=== PATIENT | female | born 1935 | race Caucasian/White ===

== ENCOUNTER 2016-09-03 19:03 | Inpatient (IN) | payer MEDICARE ==
[2016-09-03] MEDS ORDERED: DILTIAZEM HCL INJ 25 MG/5 ML VIAL IV ONE (19:53)
[2016-09-03] MEDS ORDERED: DILTIAZEM HCL/D5W 125 ML IV PRN (19:53)
--- NOTE | 2016-09-03 20:11 | ER Document Report ---
ED General - General Stated Complaint: TROUBLE BREATHING Time Seen by Provider: 09/03/16 19:41 Notes: Patient is a 80-year-old female with a past medical history of morbid obesity, COPD, sleep apnea, and atrial fibrillation who presents with several hours of shortness of breath, palpitations and diaphoresis. States that her symptoms started gradually and have gotten progressively worse since onset. Nothing improves or worsens her symptoms. She states she feels similar to when she first developed A. fib approximately 1 year ago. She has not seen her primary care doctor regarding today's concerns. States she has been taking all medications as directed. He denies any chest pain, vomiting or syncope. TRAVEL OUTSIDE OF THE [place] IN LAST 30 DAYS: No - Related Data Allergies/Adverse Reactions: ivp dye Allergy (Severe, Uncoded 08/21/15 13:28) difficulty breathing, throat swelling,hives Past Medical History - General Information source: Patient - Social History Smoking Status: Never Smoker Frequency of alcohol use: None Drug Abuse: None Lives with: Family Family History: DM - Past Medical History Cardiac Medical History: Reports: Hx Hypertension - medicated Denies: Hx Heart Attack Pulmonary Medical History: Reports: Hx Asthma - medicated PRN/ NO MEDS APPROX 1YR Neurological Medical History: Denies: Hx Cerebrovascular Accident, Hx Seizures Endocrine Medical History: Reports: Hx Diabetes Mellitus Type 2 GI Medical History: Denies: Hx Hepatitis, Hx Hiatal Hernia, Hx Ulcer Musculoskeltal Medical History: Reports Hx Arthritis Infectious Medical History: Denies: Hx Hepatitis Past Surgical History: Reports: Hx Cholecystectomy, Hx Hysterectomy. Denies: Hx Mastectomy, Hx Open Heart Surgery, Hx Pacemaker - Immunizations Hx Diphtheria, Pertussis, Tetanus Vaccination: No Review of Systems - Review of Systems Notes: Constitutional: Negative for fever. HENT: Negative for sore throat. Eyes: Negative for visual changes. Cardiovascular: Negative for chest pain. Respiratory: Positive for shortness of breath. Gastrointestinal: Negative for abdominal pain, vomiting or diarrhea. Genitourinary: Negative for dysuria. Musculoskeletal: Negative for back pain. Skin: Negative for rash. Neurological: Negative for headaches, weakness or numbness. 10 point ROS negative except as marked above and in HPI. Physical Exam - Vital signs Vitals: Resp Pulse Ox 22 H 95 09/03/16 19:36 09/03/16 19:36 Interpretation: Tachycardic, Tachypneic Notes: PHYSICAL EXAMINATION: GENERAL: Appears uncomfortable, diaphoretic. HEAD: Atraumatic, normocephalic. EYES: Pupils equal round and reactive to light, extraocular movements intact, sclera anicteric, conjunctiva are normal. ENT: nares patent, oropharynx clear without exudates. Moderately dry mucous membranes. NECK: Normal range of motion, supple without lymphadenopathy LUNGS: Breath sounds clear to auscultation bilaterally and equal. No wheezes rales or rhonchi. HEART: Irregularly irregular tachycardia without murmurs ABDOMEN: Soft, nontender, normoactive bowel sounds. No guarding, no rebound. No masses appreciated. EXTREMITIES: Normal range of motion, no pitting or edema. No cyanosis. NEUROLOGICAL: No focal neurological deficits. Moves all extremities spontaneously and on command. PSYCH: Normal mood, normal affect. SKIN: Warm, Dry, normal turgor, no rashes or lesions noted. Course - Re-evaluation Re-evalutation: 09/03/16 20:08 Patient presents ill in appearance, tachycardic rate in the 160s with associated tachypnea and shortness of breath. Has a history of A. fib and states she has been compliant with her metoprolol however did miss one dose today. Patient is quite symptomatic from her A. fib with rapid ventricular response. She will be started on a diltiazem infusion after an initial bolus. She is critically ill at this time and require frequent reassessments. 09/03/16 21:02 Patient symptomatically feels much improved, diltiazem drip currently at 10 mg/ h. She remains mildly tachycardic although rate is overall much improved averaging between 106 and 110 at this time down to 160s initially. Will continue to reassess. Chest x-ray shows bibasilar opacities although her clinical history is not consistent with an acute infection, be atelectasis versus possible small amount of dependent pulmonary edema. Will continue to reassess frequently. 09/03/16 22:04 Patient continues to feel symptomatically much improved, heart rate currently ranging between 107 and 120 on 15 mg/h of diltiazem. Blood pressures remain within normal limits and her tachypnea has resolved. She is in much more stable condition at this time and will plan for admission to the hospitalist. 09/04/16 00:25 I have discussed with Dr. Walton who is agreed to admit the patient. Her heart rate remains at this time between 93 and 100 and she remains symptomatically much improved. - Vital Signs Vital signs: Temp Pulse Resp BP Pulse Ox 20 119/62 93 09/04/16 01:01 09/04/16 01:01 09/04/16 01:01 - Laboratory Result Diagrams: 09/03/16 20:30 09/03/16 20:30 Laboratory results interpreted by me: 09/03/16 09/03/16 09/03/16 20:30 20:30 23:45 RDW 14.2 H Lymphocytes % 12.3 L BUN 30 H Creatinine 1.34 H Est GFR ( Amer) 46 L Est GFR (Non-Af Amer) 38 L Glucose 204 H Ur Leukocyte Esterase LARGE H - Diagnostic Test Radiology reviewed: Image reviewed, Reports reviewed Radiology results interpreted by me: 09/04/16 00:25 Chest x-ray: Bibasilar atelectasis - EKG Interpretation by Me Additional EKG results interpreted by me: 09/03/16 20:10 A. fib with rapid ventricular response. Rate is 136. No ST elevations or depressions. QTC is 500. Critical Care Note - Critical Care Note Total time excluding time spent on procedures (mins): 36 Comments: Critical care time spent obtaining history from patient or surrogate, discussions with consultants, development of treatment plan with patient or surrogate, evaluation of patient's response to treatment, examination of patient , ordering and performing treatments and interventions, ordering and review of laboratory studies, re-evaluation of patient's condition, ordering and review of radiographic studies and review of old charts Discharge - Discharge Clinical Impression: Atrial fibrillation with rapid ventricular response Dyspnea Qualifiers: Dyspnea type: shortness of breath Qualified Code(s): R06.02 - Shortness of breath Condition: Fair Disposition: ADMITTED INPATIENT Admitting Provider: Kin Walton Unit Admitted: [facility]
--- NOTE | 2016-09-03 20:31 | RADIOLOGY REPORT (SQ) ---
EXAM DESCRIPTION: CHEST SINGLE VIEW COMPLETED DATE/TIME: 09/03/2016 8:21 pm REASON FOR STUDY: shortness of breath COMPARISON: 11/22/2015 EXAM PARAMETERS: NUMBER OF VIEWS: One view. TECHNIQUE: Single frontal radiographic view of the chest acquired. RADIATION DOSE: NA LIMITATIONS: None. FINDINGS: LUNGS AND PLEURA: Bibasilar opacities. Possible effusions. No pneumothorax. MEDIASTINUM AND HILAR STRUCTURES: No masses. Contour normal. HEART AND VASCULAR STRUCTURES: Heart normal in size. Normal vasculature. BONES: No acute findings. HARDWARE: None in the chest. OTHER: No other significant finding. IMPRESSION: Bibasilar opacities with possible effusions. TECHNICAL DOCUMENTATION: JOB ID: [id number]
--- NOTE | 2016-09-03 20:41 | EKG REPORT ---
SEVERITY:- ABNORMAL ECG - ATRIAL FIBRILLATION LEFT ANTERIOR FASCICULAR BLOCK ANTERIOR INFARCT, AGE INDETERMINATE BORDERLINE PROLONGED QT INTERVAL : Confirmed by: Bacilio Hu 03-Sep-2016 20:41:05
[2016-09-03 20:57] LABS: ABSOLUTE BASOPHILS # (AUTO) 0.1 10^3/uL (0.0-0.2); ABSOLUTE EOSINOPHILS # (AUTO) 0.5 10^3/uL (0.0-0.6); ABSOLUTE LYMPHOCYTES (AUTO) 1.1 10^3/uL (0.5-4.7); ABSOLUTE MONOCYTES (AUTO) 0.9 10^3/uL (0.1-1.4); ABSOLUTE NEUT (AUTO) 6.6 10^3/uL (1.7-8.2); BASOPHILS % (AUTO) 0.8 % (0-2); HEMATOCRIT 38.7 % (36.0-47.0); HEMOGLOBIN 12.4 g/dL (12.0-15.5); HGB HCT DIFFERENCE -1.5; LYMPHOCYTES % (AUTO) 12.3 % (13-45); MEAN CORPUSCULAR HEMOGLOBIN 28.8 pg (27.0-33.4); MEAN CORPUSCULAR HGB CONC 32.1 g/dL (32.0-36.0); MEAN CORPUSCULAR VOLUME 90 fl (80-97); MONOCYTES % (AUTO) 10.1 % (3-13); RED BLOOD COUNT 4.31 10^6/uL (3.72-5.28); RED CELL DISTRIBUTION WIDTH 14.2 % (11.5-14.0); SEGMENTED NEUTROPHILS % (AUTO) 71.8 % (42-78); WHITE BLOOD COUNT 9.2 10^3/uL (4.0-10.5)
[2016-09-03 21:17] LABS: ANION GAP 14 (5-19); BLOOD UREA NITROGEN 30 mg/dL (7-20); CALCIUM 9.2 mg/dL (8.4-10.2); CARBON DIOXIDE 24 mmol/L (22-30); CHLORIDE 107 mmol/L (98-107); CREATININE RESULT 1.34 mg/dL (0.52-1.25); GLUCOSE 204 mg/dL (75-110); POTASSIUM 4.4 mmol/L (3.6-5.0); SODIUM 144.6 mmol/L (137-145)
[2016-09-03] MEDS ORDERED: ONDANSETRON HCL INJ/PF 4 MG/2 ML SDV IV ONE (22:22)
[2016-09-03 23:56] LABS: APPEARANCE,URINE SLIGHTLY-CLOUDY; BILIRUBIN,URINE NEGATIVE (NEGATIVE); GLUCOSE, URINE NEGATIVE (NEGATIVE); KETONES,URINE NEGATIVE (NEGATIVE); LEUKOCYTE ESTERASE,URINE LARGE (NEGATIVE); NITRITE,URINE NEGATIVE (NEGATIVE); PROTEIN,URINE NEGATIVE (NEGATIVE); URINE SPECIFIC GRAVITY 1.013; UROBILINOGEN,URINE NEGATIVE mg/dL (<2.0)
[2016-09-04] MEDS ORDERED: CEFTRIAXONE 1 GM/D5W RTU 50 ML IV ONE (00:22)
[2016-09-04 03:18] LABS: ALANINE AMINOTRANSFERASE 32 U/L (9-52); ALBUMIN 3.5 g/dL (3.5-5.0); ALKALINE PHOSPHATASE 82 U/L (38-126); ASPARTATE AMINO TRANSFERASE 21 U/L (14-36); BILIRUBIN,DIRECT 0.3 mg/dL (0.0-0.4); BILIRUBIN,TOTAL 0.9 mg/dL (0.2-1.3); MAGNESIUM 1.8 mg/dL (1.6-2.3); TOTAL PROTEIN 6.2 g/dL (6.3-8.2)
[2016-09-04] MEDS ORDERED: DEXTROSE 50%-WATER 25 GM/50 ML DISP.SYRIN IV PRN ×2 (03:20)
[2016-09-04] MEDS ORDERED: DILTIAZEM HCL/D5W 125 ML IV PRN (03:20)
[2016-09-04] MEDS ORDERED: DEXTROSE 40% GEL 15 GM TUBE PO PRN ×2 (03:20)
[2016-09-04] MEDS ORDERED: INSULIN LISPRO 100 UNIT/ML 3 ML VIAL SUBCUT PRN (03:20)
[2016-09-04] MEDS ORDERED: GLUCAGON,HUMAN RECOMB 1 MG INJ IM PRN (03:20)
[2016-09-04] MEDS ORDERED: IPRATROPIUM/ALBUTEROL 0.5-2.5 MG/3 ML AMPUL NEB PRN (03:21)
[2016-09-04] MEDS ORDERED: ACETAMINOPHEN 325 MG TABLET PO PRN (03:25)
[2016-09-04] MEDS ORDERED: PROMETHAZINE HCL 25 MG TABLET PO PRN (03:26)
[2016-09-04] MEDS ORDERED: PHARMACY COMMUNICATION ORDER MC SCH (03:30)
--- NOTE | 2016-09-04 03:38 | PDOC H&P ---
History of Present Illness Admission Date/PCP: 09/04/16 00:[address] Joey GALVIN, [facility] Patient complains of: SOB, rapid heart rate History of Present Illness: FLAQUITO DAO is a 80 year old female with known atrial fibrillation, diagnosed last November, with a negative nuclear stress study and basically unremarkable echocardiogram either in November or March of this year who presents to the emergency room for evaluation of above complaint. Has underlying asthma and has been having very slowly progressive shortness of breath over the past several months. Scheduled to see Dr. Mcmahan, her usual cement gun operator, in the near future for evaluation of this, along with repeat sleep study. However, over the last day or so, shortness of breath has worsened, along with associated rapid heart rate. What really convinced her to come to the emergency room, however, was that she had become so weak over the last day or so , she simply could not stand without significant help. Was noted to be in atrial fibrillation with rapid ventricular response on presentation, requiring 10 mg IV Cardizem bolus along with Cardizem drip, which has kept her rate nicely controlled. Hemodynamically stable otherwise. She has had some nausea but no vomiting. Occasional dysuria; she has actually been treated with several courses of oral antibiotics over the last month for persistent urinary tract infection. 2 episodes of diarrhea over the last 24 hours. No chest pain. No fever or chills. Compliant with her medications, the only exception being she was a bit late with her metoprolol dose earlier in the day.. No recent change. Questionable previous [place]. No history of pulmonary illness or DVT. Chest x-ray noted to be abnormal, but once patient's rate was under control, her shortness of breath markedly improved. No outward clinical evidence otherwise of pneumonia. Patient has been discussed with emergency room physician who evaluated the patient. . Laboratory results are listed in [facility] and are reviewed. X-ray summary results are listed below, with full report(s) reviewed. . EKG reviewed and compared to a prior tracing from November 21 of last year. Social history/personal habits: . Son lives with her. Retired. No use of alcohol tobacco or illicit drugs. Allergies/adverse reactions are listed in [employer] and are reviewed. Home medications initially autopopulated into [employer] may not accurately reflect patient's true medications, dosages, and/or frequencies. cytogenetic technician to reconcile medications. Unfortunately, patient not certain of all medications/dosages/frequencies. REVIEW OF SYSTEMS: Constitutional: No fever or chills. Eyes: Wears glasses. ENT: No swallowing problems or complaints. Partial hearing loss. Pulmonary: See history and present illness. Cardiovascular: See history and present illness. Gastrointestinal: See history and present illness. Skin: No current complaints, including rashes. Hematologic: Easy bruising. Neurologic: No current complaints, including numbness or tingling. Musculoskeletal: Joint pain from arthritis. Psychiatric: Denies anxiety or depression. Endocrine: No current complaints, including polyuria. Genitourinary: See history and present illness. PHYSICAL EXAMINATION: 5 feet 7 inches tall. 139.3 kg. BMI 48.1 kg/m. Blood pressure 122/83. Pulse 110 and slightly irregular. 97% saturation on room air. Respirations are 18 and unlabored. Temperature not recorded on chart; skin feels normothermic. Morbidly obese otherwise well-developed elderly female appearing a bit younger than her stated age. Pleasant awake alert and cooperative. No obvious distress other than somewhat anxious. Her son Lenard is present at her side; patient approves. Skin is warm and dry. No grossly obvious evidence of rash in areas of skin examined. No subcutaneous nodules palpated. ENT: Hearing grossly normal to normal conversation. Tongue midline on protrusion pink and slightly tacky. Eyes: No scleral icterus. Pupils equal and reactive to light at 4 mm. [place] conjunctivae. Neck is supple and nontender to gentle active range of motion and palpation. Midline trachea. No palpable thyroid nodule mass enlargement or tenderness. Lymphatic: No palpable cervical or clavicular nodes. Neck and lymphatic exams limited by patient body habitus. Psychiatric: Reasonable insight into acute and chronic medical issues. Oriented to time location and why here. Lungs: Auscultation reveals clear and equal breath sounds bilaterally. No use of accessory respiratory muscles. Cardiovascular: Heart slightly irregular rate and rhythm, without gallop murmur or rub. No carotid or abdominal aortic bruits. Mild bilateral symmetric slightly pitting lower calf, ankle, and pedal edema. Not sure I can detect posterior tibial or dorsalis pedis pulses on either side, due to her body habitus and edema, but feet and toes are warm with excellent capillary refill. Abdomen:soft obese nontender with positive bowel sounds. Unable to adequately evaluate abdomen for masses or organomegaly due to body habitus. Extremities: Feet are warm and dry. No calf tenderness to compression. Gentle manipulation of lower extremities fails to reveal any obvious evidence of injury or instability to knees hips or ankles. Neurologic: Moves upper extremities grossly normally. Patellar reflexes absent. Absent Babinski. Light touch is intact at feet. Dorsiflexion and plantarflexion of feet 5 / 5 and symmetric. Past Medical History Cardiac Medical History: Reports: Atrial Fibrillation, Hypertension Denies: DVT, Myocardial Infarction, Pulmonary Embolism Pulmonary Medical History: Reports: Asthma - medicated PRN/ NO MEDS APPROX 1YR, Sleep Apnea - Questionable; repeat sleep study in near future, per patient EENT Medical History: Reports: Eyes - Glasses, Ears - Partial hearing loss Neurological Medical History: Reports: Other - Occasional problems with Mnire' s disease Denies: Hemorrhagic CVA, Ischemic CVA, Seizures Endocrine Medical History: Reports: Diabetes Mellitus Type 2 Denies: Diabetes Mellitus Type 1, Hyperthyroidism, Hypothyroidism Renal/ Medical History: Reports: Chronic Kidney Disease GI Medical History: Denies: Cirrhosis, Gastroesophageal Reflux Disease, Hepatitis, Hiatal Hernia , Peptic Ulcer Disease Musculoskeltal Medical History: Reports: Arthritis Psychiatric Medical History: Denies: Alcohol Dependency, Depression, General Anxiety Disorder, Substance Abuse, Tobacco Dependency Hematology: Reports: Other - easy bruising Denies: Anemia, Sickle Cell Disease Infectious Medical History: Denies: Hepatitis B, Hepatitis C Past Surgical History Past Surgical History: Reports: Cholecystectomy, Hysterectomy Denies: Amputation, Mastectomy, Pacemaker Social History Information Source: Patient, Relative - Son, Emergency Med Personnel, [facility] Records Lives with: Family Smoking Status: Never Smoker Frequency of Alcohol Use: None Drugs: None - Advance Directive Resuscitation Status: Full Code Surrogate healthcare decision maker:: Jewel Weinberg Family History Family History: DM Parental Family History Reviewed: Yes - Father of heart condition; mother of old age Children Family History Reviewed: Yes - Healthy Sibling(s) Family History Reviewed.: Yes - 2 sisters with hypertension. Medication/Allergy Home Medications: Albuterol Sulfate [Proair Hfa Inhalation Aerosol 8.5 gm Mdi] 2 puff IH Q4 PRN Glipizide [Glipizide ER] 5 mg PO BID 08/21/15 Insulin Glargine,Hum.rec.anlog [Lantus Solostar] 30 unit SQ QHS 08/21/15 Lisinopril/Hydrochlorothiazide [Lisinopril-Hctz 20-12.5 mg Tab] 1 each PO QHS Metformin HCl [Glucophage] 1,000 mg PO BID 08/21/15 Metoprolol Tartrate [Lopressor 50 mg Tablet] 50 mg PO Q12 08/21/15 Aspirin [Aspirin EC] 81 mg PO DAILY 09/04/16 Atorvastatin Calcium [Lipitor 10 mg Tablet] 10 mg PO QHS 09/04/16 Allergies/Adverse Reactions: Iodinated Contrast- Oral and IV Dye Allergy (Severe, Verified 09/05/16 21:19) ivp dye Allergy (Severe, Uncoded 08/21/15 13:28) difficulty breathing, throat swelling,hives Physical Exam Vital Signs: Temp Pulse Resp BP Pulse Ox 20 119/62 93 09/04/16 01:01 09/04/16 01:01 09/04/16 01:01 Results Laboratory Results: 09/04/16 02:53 Magnesium 1.8 Total Bilirubin 0.9 AST 21 ALT 32 Alkaline Phosphatase 82 Total Protein 6.2 L Albumin 3.5 Impressions: Chest X-Ray 09/03/16 19:52 IMPRESSION: Bibasilar opacities with possible effusions. Assessment & Plan - Diagnosis (1) Abnormal chest x-ray Is this a current diagnosis for this admission?: YesPlan: Follow clinically at this point. Again, no outward clinical evidence of pneumonia. (2) Atrial fibrillation with rapid ventricular response Is this a current diagnosis for this admission?: YesPlan: Continue Cardizem drip. Feel that her urinary tract infection likely the stimulus for the rapid ventricular response. Hemodynamically stable otherwise. Repeat troponin. I have strongly encouraged patient not to get out of bed without notifying staff , to avoid a fall with injury. Knee high SCDs for DVT prophylaxis, along with subcutaneous heparin. Of note, patient normally only takes a baby aspirin every day; not on systemic anticoagulation. Impression and plans were discussed with patient and son, both of whom concur. Time spent in evaluation and management of patient: 69 minutes. (3) Dyspnea Qualifiers: Dyspnea type: shortness of breath Qualified Code(s): R06.02 - Shortness of breath Is this a current diagnosis for this admission?: YesPlan: Markedly improved with control of her ventricular rate. Follow clinically. (4) UTI (urinary tract infection) Qualifiers: Urinary tract infection type: site unspecified Is this a current diagnosis for this admission?: YesPlan: Blood and urine cultures. Rocephin. Likely a stimulus for her rapid ventricular response. (5) Asthma Qualifiers: Asthma severity: unspecified severity Asthma complication type: uncomplicated Qualified Code(s): J45.909 - Unspecified asthma, uncomplicated Is this a current diagnosis for this admission?: YesPlan: No clinical evidence of exacerbation of same. As needed DuoNeb. (6) CKD (chronic kidney disease), stage III Is this a current diagnosis for this admission?: Yes (7) Diabetes mellitus type 1 Qualifiers: Diabetes mellitus complication status: with kidney complications Diabetes mellitus complication detail: with chronic kidney disease Chronic kidney disease stage: stage 3 (moderate) Qualified Code(s): E10.22 - Type 1 diabetes mellitus with diabetic chronic kidney disease; N18.1 - Chronic kidney disease, stage 1 Is this a current diagnosis for this admission?: YesPlan: Diabetic cardiac prerenal diet. Accu-Cheks with appropriate sliding scale coverage. Resume home medications as appropriate once these have been determined and reviewed. (8) HLD (hyperlipidemia) Qualifiers: Hyperlipidemia type: unspecified Qualified Code(s): E78.5 - Hyperlipidemia, unspecified Is this a current diagnosis for this admission?: YesPlan: Resume home medications as appropriate once these have been determined and reviewed. - Inpatient Certification Based on my medical assessment, after consideration of the patient's comorbidities, presenting symptoms, or acuity I expect that the services needed warrant INPATIENT care.: Yes I certify that my determination is in accordance with my understanding of Medicare's requirements for reasonable and necessary INPATIENT services [42 CFR 412.3e].: Yes Medical Necessity: Significant Comorbidiites Make Outpatient Treatment Too Risky , Need For Continuous Telemetry Monitoring, Need for IV Antibiotics, Risk of Diagnosis Which Will Require Inpatient Eval/Care/Monitoring Post Hospital Care: D/C or Transfer Summary
[2016-09-04] MEDS ORDERED: HEPARIN SOD (PORCINE) 5,000 UNIT/ML 1 ML SYRINGE SUBCUT SCH (10:00)
[2016-09-04] MEDS ORDERED: CEFTRIAXONE 1 GM/D5W RTU 50 ML IV SCH (10:00)
[2016-09-04 10:03] LABS: ANION GAP 11 (5-19); BLOOD UREA NITROGEN 30 mg/dL (7-20); CARBON DIOXIDE 24 mmol/L (22-30); CHLORIDE 107 mmol/L (98-107); CREATININE RESULT 1.23 mg/dL (0.52-1.25); GLUCOSE 165 mg/dL (75-110); POTASSIUM 4.2 mmol/L (3.6-5.0); SODIUM 142.3 mmol/L (137-145)
[2016-09-04] MEDS ORDERED: ASPIRIN 81 MG TABLET, ENT COATED PO ONE (11:00)
[2016-09-04] MEDS ORDERED: METOPROLOL TARTRATE 50 MG TABLET PO ONE (11:00)
[2016-09-04] MEDS ORDERED: NYSTATIN TOPICAL POWDER 15 GM TP ONE (11:30)
[2016-09-04] MEDS ORDERED: ENOXAPARIN SODIUM INJ 150 MG/1 ML DISP.SYRIN SUBCUT ONE (11:30)
--- NOTE | 2016-09-04 12:49 | PROGRESS NOTE E ---
Progress Note NAME: FLAQUITO DAO : 1935 AGE: 80Y DATE: 09/04/2016 ROOM: 314 SUBJECTIVE: The patient is lying in bed. She was just seen on rounds. The patient states that she still feels very weak but does feel better than when she came in. The patient is symptomatic for her a-fib as in that she has palpitations but is not diaphoretic and that sort of thing. The patient states she has only had one other episode of a-fib and that is when she was sick last year; therefore, she is not on any form of a chronic anticoagulation. The patient has been afebrile. Blood pressures have been in a good range. The patient does not voice any other concerns at this time. REVIEW OF SYSTEMS: Rest of review of systems is negative. MEDICATIONS: Medications have been reviewed. OBJECTIVE: GENERAL: The patient is a 80-year-old female who is awake, alert and oriented to person, place, time and situation. She is verbal and conversational and does to appear to be in any acute distress. VITAL SIGNS: Temperature is 97.9, pulse 114, respirations 18, blood pressure 128/61, oxygen saturation is 95% on room air. SKIN: Warm and dry. No rashes, not diaphoretic. HEENT: Pupils are equal, round, reactive to light and accommodation. Conjunctivae pink. NECK: No JVP. CARDIOVASCULAR: Heart is irregularly irregular. There is no murmur or rub. CHEST: Clear, symmetrical, unlabored. ABDOMEN: Obese, soft. Bowel sounds are present. BACK: No CVA tenderness or sacral edema. EXTREMITIES: No clubbing, cyanosis or edema. PSYCHIATRIC: Appropriate affect. Pleasant mood. DIAGNOSTIC DATA: Lab values are as follows: Hematology obtained on 09/03/2016: WBC is 9.2, hemoglobin 12.4, hematocrit 38.7, and platelet count is 194,000. Chemistries obtained on 09/04/2016: Sodium is 142, potassium 4.2, chloride 107, carbon dioxide 24, BUN 30, creatinine 1.23, glucose 165, calcium 9.0, troponin is 0.013. Microbiology: Urine culture obtained on 09/04/2016 is pending. Urine culture obtained on 09/03/2016 is pending. IMPRESSION AND PLAN: 1. ATRIAL FIBRILLATION WITH RAPID VENTRICULAR RESPONSE. It does appear to be paroxysmal given that the patient is not chronically in a-fib. Will go ahead and anticoagulate and continue Cardizem drip. Will resume the patient's beta-toyin, as she does have good blood pressure to work with and will follow. 2. URINARY TRACT INFECTION. Currently awaiting culture and sensitivity. Will continue current Rocephin. Most likely this is the insulting agent for #1. 3. DYSLIPIDEMIA. Will continue the patient's statin. 4. DIABETES MELLITUS TYPE 2. Will continue the patient's home medications and follow. 5. HYPERTENSION. Will hold lisinopril/hydrochlorothiazide for now. That way there is some pressure to work with with the drip. 6. DVT PROPHYLAXIS. The patient is fully anticoagulated with Lovenox. DISPOSITION: The patient is a FULL CODE. Pending the patient's symptomatology and diagnostic findings, will re-evaluate as needed and do appreciate cardiology input with this. TIME: Time spent on this followup including assessment, plan, physical examination and patient education, is 35 minutes. DICTATING PHYSICIAN: KERRIE HAMLIN NP [id number] PHY#: [id number] ID: [id number] JOB#: [id number] ACCT: [id number] cc: >
[2016-09-04] MEDS: PROMETHAZINE HCL 25 MG TABLET PO PRN ×2 (13:37→21:43)
[2016-09-04] MEDS: DILTIAZEM HCL/D5W 125 ML IV PRN ×2 (14:00→20:54)
[2016-09-04] MEDS: GLIPIZIDE XL 5 MG TAB.ER.24 PO SCH (18:21)
[2016-09-04] MEDS: METFORMIN HCL 500 MG TABLET PO SCH (18:22)
[2016-09-04] MEDS: NYSTATIN TOPICAL POWDER 15 GM TP SCH (18:23)
[2016-09-04] MEDS: ATORVASTATIN CALCIUM 10 MG TABLET PO SCH (21:19)
[2016-09-04] MEDS: METOPROLOL TARTRATE 50 MG TABLET PO SCH (21:19)
[2016-09-04] MEDS: ENOXAPARIN SODIUM INJ 150 MG/1 ML DISP.SYRIN SUBCUT SCH (21:20)
[2016-09-04] MEDS: INSULIN GLARGINE,HUM.REC.ANLOG 300 UNIT/3 ML INSULN.PEN SUBCUT SCH (21:20)
[2016-09-04] MEDS: CEFTRIAXONE 1 GM/D5W RTU 1 GM/50 ML RTUPB IV SCH (21:20)
[2016-09-05] MEDS: PROMETHAZINE HCL 25 MG TABLET PO PRN ×3 (02:10→14:01)
[2016-09-05] MEDS: DILTIAZEM HCL/D5W 125 ML IV PRN ×2 (05:01→14:03)
[2016-09-05 05:28] LABS: ANION GAP 10 (5-19); BLOOD UREA NITROGEN 34 mg/dL (7-20); CALCIUM 8.6 mg/dL (8.4-10.2); CARBON DIOXIDE 24 mmol/L (22-30); CHLORIDE 108 mmol/L (98-107); CREATININE RESULT 1.88 mg/dL (0.52-1.25); GLUCOSE 158 mg/dL (75-110); MAGNESIUM 1.7 mg/dL (1.6-2.3); POTASSIUM 4.4 mmol/L (3.6-5.0); SODIUM 141.7 mmol/L (137-145)
[2016-09-05] MEDS: GLIPIZIDE XL 5 MG TAB.ER.24 PO SCH ×2 (08:42→17:52)
[2016-09-05] MEDS: METFORMIN HCL 500 MG TABLET PO SCH (08:43)
[2016-09-05] MEDS: NYSTATIN TOPICAL POWDER 15 GM TP SCH ×2 (09:50→17:54)
[2016-09-05] MEDS: METOPROLOL TARTRATE 50 MG TABLET PO SCH ×2 (09:52→22:41)
[2016-09-05] MEDS: ASPIRIN 81 MG TABLET, ENT COATED PO SCH (09:52)
[2016-09-05] MEDS: ENOXAPARIN SODIUM INJ 150 MG/1 ML DISP.SYRIN SUBCUT SCH ×2 (09:53→22:40)
[2016-09-05] MEDS ORDERED: NORMAL SALINE 500 ML IV PRN (11:30)
--- NOTE | 2016-09-05 12:28 | PROGRESS NOTE E ---
Progress Note NAME: FLAQUITO DAO : 1935 AGE: 80Y DATE: 09/05/2016 ROOM: 314 SUBJECTIVE: The patient is lying in bed. She states she feels a little stronger than she did yesterday but does complain of some mouth dryness. The patient denies any nausea, vomiting, diarrhea. No shortness of breath, dizziness, chest pain. No fevers, chills. The patient has been afebrile. Blood pressures have been in a good range. The patient does not voice any other concerns at this time. REVIEW OF SYSTEMS: The rest of the review of systems is negative. MEDICATIONS: Medications have been reviewed. OBJECTIVE: GENERAL: The patient is a 80-year-old female who is awake, alert and oriented to person, place, time, and situation. She is verbal, conversational, does not appear to be in any acute distress. VITAL SIGNS: As follows: Temperature is 97.5, pulse 92, respirations 18, blood pressure is 91/48, oxygen saturation is 98% on room air. SKIN: Warm and dry. No rash. Not diaphoretic. HEENT: Pupils equal, round, reactive to light and accommodation. Conjunctivae pink. NECK: No JVD. CARDIOVASCULAR SYSTEM: Heart is irregularly irregular. There is no murmur or rub. CHEST: Clear, symmetrical, unlabored. ABDOMEN: Soft, nontender, nondistended. Bowel sounds are present. BACK: No CVA tenderness, sacral edema. EXTREMITIES: No clubbing, cyanosis, edema. PSYCHIATRIC: Appropriate affect. Pleasant mood. DIAGNOSTICS: Lab values are as follows: Hematology obtained on 09/03/2016; WBCs are 9.2, hemoglobin is 12.4, hematocrit is 38.7, platelet count is 194,000. Chemistry obtained on 09/05/2016: Sodium is 141, potassium 4.4, chloride is 108, carbon dioxide 24, BUN 34, creatinine is 1.8, glucose 158, calcium is 8.6, magnesium is 1.7. Microbiology: Urine culture obtained on 09/03/2016 reveals gram-negative rods. Blood culture obtained on 09/04/2016 reveals no growth. IMPRESSION AND PLAN: 1. GRAM-NEGATIVE MIGUEL URINARY TRACT INFECTION. Will continue Rocephin for now and await for culture and sensitivity and follow. Will give the patient 1-/2 liter of fluid as she does appear on the dry side. 2. ATRIAL FIBRILLATION WITH RAPID VENTRICULAR RESPONSE. It does appear paroxysmal as the patient states she is not chronically in atrial fibrillation, saying that her last bout of this was back in November. She was not chronically anticoagulated. She continues on a Cardizem drip. Do appreciate Cardiology input with this. 3. DYSLIPIDEMIA. Continue statin. 4. DIABETES MELLITUS TYPE 2. Continue the patient's home medication. 5. HYPERTENSION. Will continue to hold lisinopril and hydrochlorothiazide for now so there is some pressure to work with while she is on the drip. 6. DVT PROPHYLAXIS. The patient is fully anticoagulated with Lovenox at the moment. DISPOSITION: The patient is a FULL CODE. Pending patient's symptomatology and diagnostic findings, will re-evaluate in the a.m. Time spent on this followup including assessment, patient, physical examination, patient education is 25 minutes. DICTATING PHYSICIAN: KERRIE HAMLIN NP [id number] PHY#: [id number] ID: [id number] JOB#: [id number] ACCT: [id number] cc:KERRIE HAMLIN NP >
[2016-09-05] MEDS: INSULIN GLARGINE,HUM.REC.ANLOG 300 UNIT/3 ML INSULN.PEN SUBCUT SCH (22:36)
[2016-09-05] MEDS: CEFTRIAXONE 1 GM/D5W RTU 1 GM/50 ML RTUPB IV SCH (22:41)
[2016-09-05] MEDS: ATORVASTATIN CALCIUM 10 MG TABLET PO SCH (22:41)
--- NOTE | 2016-09-05 22:59 | CONSULTATION REPORT E ---
Consultation Report NAME: FLAQUITO DAO : 1935 AGE: 80Y DATE: 09/05/2016 314 A TO: MADDIE MALIK M.D. FROM: KRISS WELCH M.D. Requesting Physician REASON FOR CONSULTATION: Atrial fibrillation with rapid ventricular response. HISTORY OF PRESENT ILLNESS: The patient is a 72-year-old female with known history of hypertension who is admitted with recurrent urinary tract infection which the patient states is very difficult to treat and keeps coming back. She also was diagnosed as having atrial fibrillation with rapid ventricular response in November 2016, but it seems that the patient has remained in atrial fibrillation since then, since her August 2016 EKG continues to show atrial flutter/fibrillation. The patient states that she felt very weak and short of breath with the palpitations and rapid beating of the heart. Although she has a history of asthma, she denies any wheezing. She does have some orthopnea but no PND, no leg edema. There are no TIA or CVA symptoms. The patient is not on chronic anticoagulation therapy. It is not clear whether the patient had an echocardiogram or a stress test because it is not present in the [facility]. She denies a history of diabetes mellitus or thyroid disease. She does complain of palpitations but there is no chest pain or tightness. There is dry cough. There is orthopnea but no PND and no leg edema. PAST MEDICAL HISTORY: Positive for history of hypertension. It looks like the patient has been in atrial fibrillation since November of 2016. She has a history of asthma although she has not had recent wheezing. She has had some shortness of breath which may be to her atrial fibrillation with rapid ventricular response. She has a history of sleep apnea but her machine is 15 years old and her sleep test was done more than 15 years ago and she has seen Dr. Mcmahan who has scheduled her for another sleep study and possibly a new CPAP machine. She has no history of diabetes mellitus or thyroid disease. There is no history of coronary artery disease. There is no history of congestive heart failure. There is no history of ND or anginal symptoms. She has a history of diabetes mellitus non-insulin dependent type 2. She also has a history of hyperlipidemia. There is no history of congestive heart failure. She does have atrial fibrillation that seems to be since November. She is not on chronic anticoagulation. She has not had an echocardiogram done that I can see of, since I cannot get a report. I am not sure if she had a stress test done. She has no history of TIA or CVA. She is morbidly obese. As mentioned earlier, she has a history of sleep apnea but the diagnosis was more than 15 years ago and her CPAP machine is 15 years old and the patient is not using CPAP. She is seeing Dr. Mcmahan who scheduled a sleep study and also possibly a new CPAP machine will be prescribed if the sleep study is positive. She has no history of depression but does seem to be slightly anxious, although she is not on any medications at home for that. She has no history of chronic kidney disease, no history of gout. SOCIAL HISTORY: The patient does not smoke. There is no history of EtOH abuse. FAMILY HISTORY: Father of a heart attack; mother of old age. ADVANCED DIRECTIVES: She is a FULL CODE. She states her son is her surrogate healthcare decision maker. PAST SURGICAL HISTORY: Positive for cholecystectomy and hysterectomy. REVIEW OF SYSTEMS: CONSTITUTIONAL: Denies any fever, chills or rigors. Complains of generalized fatigue and weakness. HEENT: Head: Denies headaches or head injury. No history of dizziness. Eyes: No history of amblyopia or diplopia. No history of amaurosis fugax. Ears: The patient has partial loss of hearing. There is no history of vertigo, no tinnitus, no recurrent ear infections. Nose: There is no history of hay fever, no history of nasal polyps, no history of nosebleeds. Mouth: No history of altered taste sensation, no history of ulcers in the mouth, no bleeding from the gums. Throat: There is no odynophagia or dysphagia. There are no recurrent sore throats. SKIN: There is no pruritus. There is no yellowish discoloration of the skin. There is no psoriasis. There is no skin cancer. NECK: No painful or painless swelling of the neck. No goiter. No neck pain. LUNGS: History of asthma. History of sleep apnea. No recent wheezing. History of shortness of breath present. This may be related to her atrial fibrillation with rapid ventricular response. She denies any history of pulmonary embolism. There is no history of hemoptysis. There is no history of pleuritic chest pain. Although she has a history of asthma, no recent wheezing. There is no cough or sputum production. CARDIAC: History of hypertension. No history of congestive heart failure. No history of coronary artery disease. History of atrial fibrillation and it looks like the patient has been in persistent atrial fibrillation since at least November 2015. The patient is not on any chronic anticoagulation therapy and the patient has not had any full cardiac workup that I know of, but I will talk to her family care physician to see if she had cardiac workup elsewhere outside the hospital. She does have orthopnea but no PND. There is no leg edema. There is no history of congestive heart failure. There is no syncope. The patient does have generalized weakness and fatigue most likely secondary to atrial fibrillation with rapid ventricular response. There is no syncope. There is no leg edema. GASTROINTESTINAL: No history of fatty food intolerance. No history of hepatitis. No history of hepatitis. No history of cirrhosis of the liver. No history of altered bowel movements. No history of GI bleed. MUSCULOSKELETAL: Denies arthritis or collagen vascular disease. RENAL: Although she sates no history of chronic kidney disease,the patient in November 2015 had chronic kidney disease stage 3 and, hence, it has progressed. The patient has recurrent UTIs. The patient at present is being treated for UTI. The patient states she has difficulty getting rid of it. There is no hematuria or polyuria. She does have some dysuria. METABOLIC: History of hyperlipidemia and history of morbid obesity present. CENTRAL NERVOUS SYSTEM: No history of TIA or CVA. No history of headaches, migraines or seizures. History of sleep apnea as mentioned earlier diagnosed 15 years ago; she does not wear CPAP regularly. She is going to have a repeat sleep study as mentioned earlier. PSYCHIATRIC: No definite history of depression or anxiety but the patient does appear to be anxious, although she is not on any medication or depression. VASCULAR: No history of calf or buttock claudication. No history of DVT. HEMATOLOGICAL: No history of bleeding diathesis. No history of clotting disorders. The rest of the review of symptoms is positive for fatigue and generalized weakness. ALLERGIES: 1. IODINATED CONTRAST. 2. IVP DYE. MEDICATIONS: 1. Tylenol 650 mg p.o. q.8 h. p.r.n. 2. Aspirin 81 mg p.o. daily. 3. Atorvastatin 10 mg p.o. at bedtime. 4. Ceftriaxone 1 gm IV piggyback at bedtime. 5. Hypoglycemic precautions with glucose 40% gel 15 gm p.o. and 30 gm p.o. respectively p.r.n. hypoglycemia. 5. Hypoglycemic precautions with dextrose 50% 25 gm IV and 12.5 gm IV p.r.n. hypoglycemia. 6. Lovenox 135 mg subcutaneously q.12 h. 7. Glipizide 5 mg p.o. b.i.d. 8. Glucagon 1 mg IM p.r.n. hypoglycemia. 9. Cardizem 10 mg per hour. 10. Lantus insulin 30 units subcutaneously at bedtime. 11. Accu-Cheks before meals t.i.d. and at bedtime with sliding scale insulin coverage. 12. Metoprolol 50 mg p.o. q.12 h. 13. Nystatin 1 application topically b.i.d. 14. Phenergan 25 mg p.o. q.4 h. p.r.n. PHYSICAL EXAMINATION: GENERAL: Patient is morbidly obese but well groomed. She seems to be slightly anxious. VITAL SIGNS: She is afebrile with a temperature of 97.6 degrees Fahrenheit, pulse is 83 beats per minute, blood pressure is 138/63, respirations are 18 per minute, 02 sats are 94% on room air. HEENT: Head is atraumatic, normocephalic. Eyes: Pupils are equal, round, regular, reactive to light and accommodation. Extraocular movements are normal. There is no conjunctival pallor. There is no scleral icterus. Ears: Tympanic membranes are intact. External auditory canals are clear. Nose: There is no deviated nasal septum. There is no inflammation of the nasal mucous membranes. Mouth: Mucous membranes of the mouth are moist. Tongue is moist. There are no ulcers. There is no bleeding from the gums. Throat: There is no redness of the oropharynx. There are no exudates. SKIN: There are no skin rashes. There is no petechia or ecchymosis. There are no skin lesions. NECK: Supple. There is no JVD. Carotids are equal. There is no bruit. There is no lymphadenopathy. There is no goiter. Trachea is central. LUNGS: Fairly clear to auscultation and percussion. HEART: S1 and S2 are heard. There is no S3 gallop. There is no S4 gallop. There is a variable S1 in intensity. There is a systolic murmur of mitral regurgitation present. There is no rub. ABDOMEN: Soft, obese, nontender. There is no hepatosplenomegaly. Bowel sounds are well heard. There are no tender areas or masses. There is rebound, guarding or rigidity. EXTREMITIES: Femorals are deep. Femorals are diminished. There is no pedal edema. There is no DVT or cellulitis. There is no calf tenderness. There is no cyanosis or clubbing. Leg pulses are slightly diminished. CENTRAL NERVOUS SYSTEM: The patient is conscious, awake, alert, oriented x3 with no focal deficits. PSYCHIATRIC: The patient's judgment and insight are intact. Her affect is normal, but the patient does not appear to be slightly anxious. DIAGNOSTIC TEST RESULTS: Chest x-ray shows bibasilar opacities with possible effusions. The EKG shows atrial fibrillation, left anterior fascicular block, poor R-wave progression, cannot exclude old anterior ND versus lead placement, borderline prolonged QT interval. Ventricular response is 136 beats per minute. The patient's white count is 9200, hemoglobin is 12.4, hematocrit is 38.7, and platelet count is 194,000. The sodium is 141.7, potassium 4.4, chloride 108, CO2 24, the patient's BUN is 34, creatinine is 1.88, GFR is reduced at 26 mL, which is stage 4 kidney disease. Her glucose is 158, calcium is 8.6, magnesium is 1.7. The patient's urine shows gram-negative rods. Note: Reviewing the patient's old lab results, she has had chronic kidney disease stage 3 since November 2015. IMPRESSION: 1. Atrial fibrillation with rapid ventricular response. At present ventricular response seems to be better. Continue Cardizem and will try to decrease the Cardizem if possible. Continue metoprolol and increase as tolerated. 2. Urinary tract infection with gram-negative rods growing in the urine. The patient is on antibiotics. 3. Hypertension. Blood pressure is fairly well controlled. 4. Diabetes mellitus type 2 with chronic kidney disease. 5. Chronic kidney disease, at present stage 4. The patient in November 2015 had chronic kidney disease stage 3 and, hence, it has progressed. 6. Bibasilar opacity with possible pleural effusion, cannot exclude pneumonia but the patient's white count is normal and she has no cough. 7. History of sleep apnea. 8. Hyperlipidemia. 9. Morbid obesity. 10. Possible anxiety. RECOMMENDATIONS: As mentioned earlier, continue the patient on Lovenox. Would talk to the patient about long-term anticoagulation treatment. Will check an echo as soon as heart rate comes down. Later as an outpatient, can schedule the patient for an IV Lexiscan Cardiolite stress test if this has not been done. As mentioned earlier, continue metoprolol, increase as tolerated. Would recommend that the patient have a CPAP placed tonight empirically. This may help keep the atrial fibrillation rate down. NOTE: The patient was seen at 8 o'clock. Forty minutes were spent on this patient with more than 50% of the time spent on direct patient care and the patient's medications reviewed and discussed medication changes with the attending physician on the case. Discussed with the patient also. NOTE: This consultation required highly complex medical decision making in view of the patient's atrial fibrillation with rapid ventricular response, morbid obesity, kidney disease, diabetes, and hypertension. Thanking you. DICTATING PHYSICIAN: MADDIE MALIK M.D. [id number] [id number] PHY#: [id number] ID: [id number] JOB#: [id number] ACCT: [id number] cc:MADDIE MALIK M.D. > MTDD
[2016-09-06 04:56] LABS: HEMATOCRIT 32.7 % (36.0-47.0); HEMOGLOBIN 10.8 g/dL (12.0-15.5); HGB HCT DIFFERENCE -0.3; MEAN CORPUSCULAR HEMOGLOBIN 29.3 pg (27.0-33.4); MEAN CORPUSCULAR VOLUME 89 fl (80-97); RED BLOOD COUNT 3.68 10^6/uL (3.72-5.28); RED CELL DISTRIBUTION WIDTH 14.6 % (11.5-14.0); WHITE BLOOD COUNT 8.4 10^3/uL (4.0-10.5)
[2016-09-06 05:24] LABS: ANION GAP 9 (5-19); BLOOD UREA NITROGEN 40 mg/dL (7-20); CALCIUM 8.8 mg/dL (8.4-10.2); CARBON DIOXIDE 26 mmol/L (22-30); CHLORIDE 108 mmol/L (98-107); CREATININE RESULT 2.27 mg/dL (0.52-1.25); GLUCOSE 134 mg/dL (75-110); MAGNESIUM 1.8 mg/dL (1.6-2.3); SODIUM 143.4 mmol/L (137-145)
[2016-09-06] MEDS: GLIPIZIDE XL 5 MG TAB.ER.24 PO SCH ×2 (08:07→16:47)
[2016-09-06] MEDS: PROMETHAZINE HCL 25 MG TABLET PO PRN (08:07)
[2016-09-06] MEDS: ASPIRIN 81 MG TABLET, ENT COATED PO SCH (09:39)
[2016-09-06] MEDS: METOPROLOL TARTRATE 50 MG TABLET PO SCH ×2 (09:39→22:15)
[2016-09-06] MEDS: NYSTATIN TOPICAL POWDER 15 GM TP SCH ×2 (09:41→16:54)
[2016-09-06] MEDS ORDERED: NORMAL SALINE 500 ML IV PRN (10:16)
--- NOTE | 2016-09-06 10:48 | PROGRESS NOTE E ---
Progress Note NAME: FLAQUITO DAO : 1935 AGE: 80Y DATE: 09/06/2016 ROOM: 314 SUBJECTIVE: The patient is lying in bed. She states that she does not feel as good as she did yesterday. Overall just feels weak. The patient denied any vomiting. No shortness of breath, dizziness, or chest pain. No heart palpitations. No fever or chills. The patient has had some nausea and weakness. The patient does not voice any other concerns at this time. BRIEF HISTORY: The patient is a 80-year-old female with a past medical history of a previous episode of AFib. The patient presented to the emergency department with chief complaint of generalized weakness. The patient apparently has had a UTI which has been treated with 3 different antibiotics on an outpatient basis for a month. Upon presentation to the emergency department, the patient was found to be in atrial fibrillation with rapid ventricular response and was referred to the hospitalist for admission and management. The patient has been admitted and started on Cardizem drip as well as Rocephin as it reveals she does have a gram negative dennys. REVIEW OF SYSTEMS: Rest of the review of systems negative. MEDICATIONS: Have been reviewed. OBJECTIVE: GENERAL: The patient is a 80-year-old female who is awake, alert, and oriented to person, place, time, and situation. She is verbal, conversational, and does not appear to be in any acute distress. VITAL SIGNS: Temperature 98.1, pulse 131, respirations 16, blood pressure 115/64, oxygen saturation is 96% on room air. SKIN: Warm and dry. No rash. Not diaphoretic. HEENT: Pupils equal, round, reactive to light and accommodation. Conjunctivae are pink. No JVP. CARDIOVASCULAR: Heart is irregularly irregular. There is no murmur or rub. CHEST: Clear, symmetrical, unlabored. ABDOMEN: Soft, nontender, nondistended. BACK: No CVA tenderness or sacral edema. EXTREMITIES: No clubbing, cyanosis, or edema. PSYCHIATRIC: Appropriate affect. Pleasant mood. DIAGNOSTICS: Lab values are as follows: Hematology obtained on 09/06/2016: WBCs are 8.4, hemoglobin is 10.8, hematocrit is 37.2, platelet count is 172,000. Chemistry obtained on 09/06/2016: Sodium is 143, potassium 5.0, chloride is 108, carbon dioxide 26, BUN 40, creatinine is 2.27, glucose 134, calcium is 8.8, magnesium is 1.8. IMPRESSION AND PLAN: 1. GRAM-NEGATIVE DENNYS URINARY TRACT INFECTION. Will continue Rocephin for now and await culture and sensitivity and follow. 2. ATRIAL FIBRILLATION WITH RAPID VENTRICULAR RESPONSE. This does appear paroxysmal. The patient is not chronically in atrial fibrillation. She states her last episode was back in November. She was not chronically anticoagulated. She is on a Cardizem drip. Do appreciate Cardiology input. Will transition anticoagulation away from Lovenox given the patient's renal function. 3. DYSLIPIDEMIA. Continue statin. 4. DIABETES MELLITUS TYPE 2. Will continue the patient's home medication. 5. HYPERTENSION. Will continue to hold lisinopril and hydrochlorothiazide now that we have some pressure to work with while she is on the drip. 6. CHRONIC KIDNEY DISEASE STAGE III. The patient's baseline creatinine appears to be in the 1.3 range. Creatinine did go up overnight, therefore, we will transition Lovenox and repeat chemistry in the a.m. This could be due to demand from the AFib or she may be volume up even though she has no overt evidence of this. Will follow. 7. DVT PROPHYLAXIS. Will transition to Eliquis. DISPOSITION: The patient is a FULL CODE. Pending patient's symptomatology and diagnostic findings, will reevaluate in the a.m. Time spent on this followup including assessment, plan, physical examination, patient education, and specialty collaboration is 35 minutes. DICTATING PHYSICIAN: KERRIE HAMLIN NP [id number] PHY#: [id number] ID: [id number] JOB#: [id number] ACCT: [id number] cc: > [facility]
[2016-09-06] MEDS ORDERED: DIGOXIN INJ 0.5 MG/2 ML AMPULE IV ONE ×2 (13:00→14:00)
--- NOTE | 2016-09-06 13:28 | PROGRESS NOTE E ---
Progress Note NAME: FLAQUITO DAO : 1935 AGE: 80Y DATE: 09/06/2016 ROOM: 314 SUBJECTIVE: The patient states that overall she does not feel well compared to yesterday. The patient also is in atrial fibrillation with a ventricular response in the 130s with a stable blood pressure. She is on Cardizem drip of 2.5 mg per hour. She denies any chest pain or discomfort. There is no orthopnea. There is no leg edema. There is no PND. The patient denies any symptoms of urinary tract infection at present. There is no chest pain or discomfort. The patient denies any palpitations. There is no TIA or CVA symptoms. There is no bleeding on Lovenox. Of note, the patient's Lovenox is being adjusted through the patient's renal function status. PHYSICAL EXAMINATION: GENERAL: The patient is morbidly obese at present, in no acute distress. VITAL SIGNS: She is afebrile with a temperature of 98.2 degrees Fahrenheit. Her pulse is 134 beats per minute. Blood pressure is 108/58. Respirations are 20 per minute. O2 sats are 97% on room air. HEENT: Head is atraumatic and normocephalic. Eyes - Pupils are equal, round, regular, reactive to light and accommodation. Extraocular movements are normal. There is no conjunctival pallor. There is no scleral icterus. Ears - Tympanic membranes are intact. External auditory canals are clear. Nose - Negative. Throat - There is no redness of the oropharynx. There are no exudates. SKIN: There are no skin rashes. There is no petechia or ecchymosis. There are no skin lesions. NECK: Supple. There is no JVD. Carotids are equal. There is no bruit. There is no lymphadenopathy. There is no goiter. Trachea is central. LUNGS: Fairly clear to auscultation and percussion. There is no chest wall tenderness. HEART: S1 and S2 is heard. There is no S3 gallop. There is no S4 gallop. There is variable S1 in intensity. There is a systolic murmur of mitral regurgitation present. There is no rub. ABDOMEN: Soft, obese, nontender. There is no hepatosplenomegaly. Bowel sounds are well heard. There are no tender areas or masses. There is no rebound, guarding or rigidity. EXTREMITIES: Femorals are deep. Femoral are diminished. There is no pedal edema. There is no DVT or cellulitis. There is no calf tenderness. There is no cyanosis or clubbing. Leg pulses are slightly diminished. CENTRAL NERVOUS SYSTEM: The patient is conscious, awake, alert, oriented x3 with no focal deficits. PSYCHIATRIC: Patient's judgement and insight are intact. Her affect is normal. The patient does appear to be slightly anxious. DIAGNOSTICS: The patient's 24-hour intake and output is not accurate. The patient's sodium is 143.4, potassium 5, chloride 108, CO2 26. The patient's BUN is 40, creatinine is worsening to 2.27, and GFR is reduced further to 21 mL, which is still stage IV chronic kidney disease. Glucose is 134, calcium is 8.8, magnesium is 1.8. The patient's white count is 8400, hemoglobin is 10.8, hematocrit is 32.7, and the platelet count is 172,000. IMPRESSION: 1. ATRIAL FIBRILLATION WITH RAPID VENTRICULAR RESPONSE. We will increase the patient's Cardizem drip at present. Of note, the patient is on Lovenox which is being adjusted for her renal failure. Later it would be transitioned to Eliquis. 2. URINARY TRACT INFECTION, RECURRENT, WITH GRAM-NEGATIVE RODS. The Gram-negative rods being equal, I sense the patient has E. coli urinary tract infection. The patient is being treated with antibiotics. Note that the E. coli is sensitive to the medications that the patient is on, which is ceftriaxone to which it is sensitive. 3. HYPERTENSION. Blood pressure is fairly well controlled. 4. DIABETES MELLITUS, TYPE 2, WITH CHRONIC KIDNEY DISEASE. 5. CHRONIC KIDNEY DISEASE, AT PRESENT STAGE IV. Note that the patient in November had chronic kidney disease stage III; now this has regressed and progressed into stage IV. 6. BIBASILAR OPACITY WITH POSSIBLE PLEURAL EFFUSION. Cannot exclude pneumonia, but the patient's white count is normal and she has no cough. 7. HISTORY OF SLEEP APNEA. The patient is being scheduled for outpatient retesting of sleep study with possible new CPAP machine. We will try the patient on CPAP at night empirically. 8. HYPERLIPIDEMIA. 9. MORBID OBESITY. 10. POSSIBLE ANXIETY. RECOMMENDATIONS: As mentioned earlier, increase the patient's Cardizem drip. We will give 1 dose of digoxin. We will decrease the patient's dose of Lovenox to renal failure doses. Later, as mentioned earlier, we can schedule the patient for an IV Lexiscan Cardiolite stress test and also the patient as an outpatient will repeat sleep study since the last sleep study was 15 years ago. We will allow the patient to have CPAP placed empirically. Of note, 30 minutes was spent on the patient, more than 50% of the time spent on direct patient care. The patient's medications were reviewed and adjusted. Of note, the patient continues to require highly complex medical decision making in this case in view of the multiple comorbidity diseases and also in view of the patient's atrial fibrillation with continued rapid ventricular response. I also discussed with other caregiving providers and formulated a care plan for the patient in conjunction with the other caregiving providers. DICTATING PHYSICIAN: MADDIE MALIK M.D. [id number] PHY#: [id number] ID: [id number] JOB#: [id number] ACCT: [id number] cc: >
[2016-09-06] MEDS ORDERED: ENOXAPARIN SODIUM INJ 150 MG/1 ML DISP.SYRIN SUBCUT SCH (22:00)
[2016-09-06] MEDS: INSULIN GLARGINE,HUM.REC.ANLOG 300 UNIT/3 ML INSULN.PEN SUBCUT SCH (22:14)
[2016-09-06] MEDS: ATORVASTATIN CALCIUM 10 MG TABLET PO SCH (22:15)
[2016-09-06] MEDS: CEFTRIAXONE 1 GM/D5W RTU 1 GM/50 ML RTUPB IV SCH (22:15)
[2016-09-07] MEDS: DILTIAZEM HCL/D5W 125 ML IV PRN ×2 (02:09→22:24)
[2016-09-07] MEDS: PROMETHAZINE HCL 25 MG TABLET PO PRN ×2 (04:00→14:57)
[2016-09-07 07:50] LABS: APPEARANCE,URINE CLEAR; BILIRUBIN,URINE NEGATIVE (NEGATIVE); GLUCOSE, URINE NEGATIVE (NEGATIVE); KETONES,URINE NEGATIVE (NEGATIVE); LEUKOCYTE ESTERASE,URINE NEGATIVE (NEGATIVE); NITRITE,URINE NEGATIVE (NEGATIVE); PROTEIN,URINE NEGATIVE (NEGATIVE); URINE SPECIFIC GRAVITY 1.011; UROBILINOGEN,URINE NEGATIVE mg/dL (<2.0)
[2016-09-07] MEDS: GLIPIZIDE XL 5 MG TAB.ER.24 PO SCH ×2 (08:50→17:19)
[2016-09-07 09:03] LABS: PROTHROMBIN TIME 14.8 SEC (11.4-15.4)
[2016-09-07 09:04] LABS: PARTIAL THROMBOPLASTIN TIME 45.2 SEC (23.5-35.8)
[2016-09-07 09:24] LABS: ANION GAP 11 (5-19); BLOOD UREA NITROGEN 32 mg/dL (7-20); CALCIUM 8.6 mg/dL (8.4-10.2); CARBON DIOXIDE 23 mmol/L (22-30); CHLORIDE 107 mmol/L (98-107); CREATININE RESULT 1.45 mg/dL (0.52-1.25); GLUCOSE 164 mg/dL (75-110); POTASSIUM 4.3 mmol/L (3.6-5.0); SODIUM 140.6 mmol/L (137-145)
[2016-09-07] MEDS: METOPROLOL TARTRATE 50 MG TABLET PO SCH ×2 (10:05→22:32)
[2016-09-07] MEDS: PANTOPRAZOLE SODIUM 40 MG VIAL IV SCH ×2 (10:05→22:31)
[2016-09-07] MEDS: ASPIRIN 81 MG TABLET, ENT COATED PO SCH (10:05)
[2016-09-07] MEDS: NYSTATIN TOPICAL POWDER 15 GM TP SCH ×2 (10:06→17:20)
[2016-09-07] MEDS ORDERED: DIGOXIN INJ 0.5 MG/2 ML AMPULE IV ONE (10:45)
--- NOTE | 2016-09-07 10:50 | RADIOLOGY REPORT (SQ) ---
EXAM DESCRIPTION: CHEST SINGLE VIEW COMPLETED DATE/TIME: 09/07/2016 10:36 am REASON FOR STUDY: Bi Basilar opacities and pleural effusion COMPARISON: 09/03/2016. NUMBER OF VIEWS: One view. TECHNIQUE: Single frontal radiographic view of the chest acquired. LIMITATIONS: None. FINDINGS: LUNGS AND PLEURA: Slightly improve right basilar aeration. Persistent probable subsegment al atelectasis on the left. Trace pleural fluid is likely present. MEDIASTINUM AND HILAR STRUCTURES: No masses. Contour normal. HEART AND VASCULAR STRUCTURES: Heart normal in size. Normal vasculature. BONES: No acute findings. HARDWARE: None in the chest. OTHER: No other significant finding. IMPRESSION: Slightly improved, as above. TECHNICAL DOCUMENTATION: JOB ID: [id number] [employer]- All Rights Reserved
--- NOTE | 2016-09-07 12:01 | PDOC PROGRESS REPORT ---
Subjective Progress Note for:: 09/07/16 Subjective:: Patient is seen on morning rounds. She is resting comfortably in bed. She states she feels much better than yesterday. She denies any shortness of breath , dyspnea or chest pain. She denies any nausea, vomiting or diarrhea. She is eating and drinking well. She denies any dysuria at the present time. She states she has had frequent UTI's over the past few years. She denies any palpitations this morning. She is still on IV diltiazem for atrial fibrillation with RVR. Physical Exam Vital Signs: Temp Pulse Resp BP Pulse Ox 97.6 F 133 H 20 115/77 96 09/07/16 07:57 09/07/16 07:57 09/07/16 07:57 09/07/16 07:57 09/07/16 07:57 Intake & Output 09/06/16 09/07/16 09/08/16 06:59 06:59 06:59 Intake Total 1275 497 Output Total 250 650 Balance 1025 -153 Weight 143 kg 145.1 kg General appearance: PRESENT: no acute distress, morbidly obese, well-developed, well-nourished Head exam: PRESENT: atraumatic, normocephalic Eye exam: PRESENT: conjunctiva pink, EOMI, PERRLA. ABSENT: scleral icterus Ear exam: PRESENT: normal external ear exam Mouth exam: PRESENT: moist, tongue midline Neck exam: ABSENT: carotid bruit, JVD, lymphadenopathy, thyromegaly Respiratory exam: PRESENT: clear to auscultation kalyan. ABSENT: rales, rhonchi, wheezes Cardiovascular exam: PRESENT: RRR. ABSENT: diastolic murmur, rubs, systolic murmur Pulses: PRESENT: normal dorsalis pedis pul Vascular exam: PRESENT: normal capillary refill GI/Abdominal exam: PRESENT: normal bowel sounds, soft. ABSENT: distended, guarding, mass, organolmegaly, rebound, tenderness Rectal exam: PRESENT: deferred Extremities exam: PRESENT: full ROM. ABSENT: calf tenderness, clubbing, pedal edema Neurological exam: PRESENT: alert, awake, oriented to person, oriented to place , oriented to time, oriented to situation, CN II-XII grossly intact. ABSENT: motor sensory deficit Psychiatric exam: PRESENT: appropriate affect, normal mood. ABSENT: homicidal ideation, suicidal ideation Skin exam: PRESENT: dry, intact, warm. ABSENT: cyanosis, rash Results Laboratory Results: 09/06/16 04:31 09/07/16 08:49 09/07/16 09/07/16 09/07/16 06:40 08:40 08:49 Sodium 140.6 Potassium 4.3 Chloride 107 Carbon Dioxide 23 Anion Gap 11 BUN 32 H Creatinine 1.45 H Est GFR ( Amer) 42 L Est GFR (Non-Af Amer) 35 L Glucose 164 H Calcium 8.6 Urine Color YELLOW Urine Appearance CLEAR Urine pH 5.0 Ur Specific [place] 1.011 Urine Protein NEGATIVE Urine Glucose (UA) NEGATIVE Urine Ketones NEGATIVE Urine Blood NEGATIVE Urine Nitrite NEGATIVE Ur Leukocyte Esterase NEGATIVE Urine WBC (Auto) 1 Urine RBC (Auto) 1 Stool Occult Blood POSITIVE 09/04/16 08:35 Troponin I 0.013 Impressions: Chest X-Ray 09/07/16 00:00 IMPRESSION: Slightly improved, as above. Assessment & Plan - Diagnosis (1) MIROSLAVA (acute kidney injury) Is this a current diagnosis for this admission?: YesPlan: Improvement with IV hydration back towards underlying CKD 3-4. Will avoid nephrotoxic drugs and dosages (2) Atrial fibrillation with rapid ventricular response Is this a current diagnosis for this admission?: YesPlan: Cardiology following. IV diltiazem drip. She has been receiving renal dosed lovenox. Nursing reports prolonged oozing from venipunture sites, and dark stools. Stool sent for guiac was positive. Will d/c lovenox and start on Protonix, continue aspirin and transition to eliquis once GI status is stabilized (3) UTI (urinary tract infection) Qualifiers: Urinary tract infection type: site unspecified Is this a current diagnosis for this admission?: YesPlan: Urine culture grew E. coli, resistant to multiple antibiotics. It is sensitive to try Ceftriazone, will transition to oral antibioitics tomorrow. (4) CKD (chronic kidney disease), stage III Is this a current diagnosis for this admission?: YesPlan: Improving back towards baseline. (5) Acute blood loss anemia Is this a current diagnosis for this admission?: YesPlan: Stool guiac positive. Will discontinue lovenox. Start IV protonix and monitor - Time Time Spent with patient: 25-34 minutes Critical Time spent with patient: 15-24 minutes Medications reviewed and adjusted accordingly: Yes Anticipated discharge: Home with Homehealth - Inpatient Certification Based on my medical assessment, after consideration of the patient's comorbidities, presenting symptoms, or acuity I expect that the services needed warrant INPATIENT care.: Yes I certify that my determination is in accordance with my understanding of Medicare's requirements for reasonable and necessary INPATIENT services [42 CFR 412.3e].: Yes
--- NOTE | 2016-09-07 12:48 | PROGRESS NOTE E ---
Progress Note NAME: FLAQUITO DAO : 1935 AGE: 80Y DATE: 09/07/2016 ROOM: 314 SUBJECTIVE: The patient states earlier she was short of breath. At present she is not. Her heart rate remains 106 but if she moves around in bed her heart rate goes up to 133. She continues to be in atrial fibrillation. She denies any cough. She still has some orthopnea but no PND. There is no leg edema. The patient denies any chest pain or discomfort. There is no bleeding on renal adjusted dose of Lovenox. There are no TIA or CVA symptoms. Note that the patient is using CPAP at night and feels better. OBJECTIVE: GENERAL: The patient is morbidly obese in no acute distress. VITAL SIGNS: She is afebrile with a temperature of 97.5 degrees Fahrenheit. Her pulse is 106 beats per minute on 5 mg/hour of Cardizem infusion per hour. With minimal activity with movements in the bed, her heart rate goes up to 133. Blood pressure is 115/79. Respirations are 20 per minute. 02 saturations are 96% on room air. HEENT: Head is atraumatic, normocephalic. Eyes: Pupils are equal, round, regular and reactive to light and accommodation. Extraocular movements are normal. There is no conjunctival pallor. There is no scleral icterus. ENT is negative. NECK: Supple. There is no JVD. Carotids are equal. There is no bruit. There is no lymphadenopathy. There is no goiter. Trachea is central. LUNGS: Show a few dry crackles in the right base. The rest of the lungs are clear. There is no chest wall tenderness. There is no rhonchi or wheezing. HEART: S1 and S2 are heard. There is no S3 gallop. There is no S4 gallop. S1 is of variable intensity. There is a systolic murmur of mitral regurgitation present. There is no rub. ABDOMEN: Soft, obese, nontender. There is no hepatosplenomegaly. Bowel sounds are well heard. There are no tender areas or masses. There is no rebound, guarding, or rigidity. EXTREMITIES: Femorals are deep. Femorals are diminished. There are no femoral bruits. Leg pulses are diminished. There is no DVT. There is no calf tenderness. There is no cyanosis or clubbing. CENTRAL NERVOUS SYSTEM: The patient is conscious, awake, alert, oriented x3 with no focal deficits. PSYCHIATRIC: The patient's judgment and insight are intact. Her affect is normal. The patient does appear to be slightly anxious. The patient's intake and output is not accurate. DIAGNOSTICS: The patient's chest x-ray shows some improved aeration in the right base. Persistent probable some segmental atelectasis of the left. There is trace pleural fluid likely present. Sodium is 140.6, potassium 4.3, chloride 107. Her CO2 is 23. The patient's BUN is 32, creatinine is 1.45, GFR is reduced at 35 mL/minute which is chronic kidney disease stage III. Her glucose is 164, calcium is 8.6. Her stool for occult blood is positive. IMPRESSION: 1. ATRIAL FIBRILLATION WITH FAST VENTRICULAR RESPONSE. Continue the patient's Cardizem drip. We will give 1 dose of digoxin 0.25 mg IV push x1. 2. URINARY TRACT INFECTION WITH E. COLI. Patient on antibiotics to which the bacteria is susceptible. Symptoms improving. 3. OCCULT POSITIVE BLOOD. Will need to check patient's hemoglobin. 4. HYPERTENSION. Blood pressure is well controlled. 5. DIABETES MELLITUS TYPE 2 WITH CHRONIC KIDNEY DISEASE. Continue the patient on current antidiabetic medication. 6. CHRONIC KIDNEY DISEASE, AT PRESENT STAGE III WHICH IS IMPROVED FROM STAGE IV. Would recommend Nephrology consult. 7. BIBASILAR OPACITY WITH POSSIBLE PLEURAL EFFUSION. There is only trace left pleural effusion now. There is improved aeration in the right base. There is still some atelectasis versus pneumonia in the left base. Continue antibiotics. Continue respiratory treatments. 8. HISTORY OF SLEEP APNEA. Patient empirically on CPAP. She would rather outpatient repeat study by Dr. Montejo as mentioned earlier. 9. HYPERLIPIDEMIA. 10. MORBID OBESITY. 11. PROBABLE ANXIETY. RECOMMENDATIONS: Note 30 minutes spent on this patient with more than 50% of the time spent on direct patient care. In view of the continued increase in heart rate, medical decision making is complex in nature on this case. Hence, there is involvement of highly complex medical decision making. The patient's medications have been reviewed. Medications have been added. I also discussed with the other caregiving providers on the case and coordination of care done with discussions with the other caregiving providers on the case. We will follow with you. Thanking you. DICTATING PHYSICIAN: MADDIE MALIK M.D. [id number] PHY#: [id number] ID: [id number] JOB#: [id number] ACCT: [id number] cc: >
[2016-09-07] MEDS ORDERED: APIXABAN 2.5 MG TABLET PO SCH (22:00)
[2016-09-07] MEDS: CEFTRIAXONE 1 GM/D5W RTU 1 GM/50 ML RTUPB IV SCH (22:29)
[2016-09-07] MEDS: ATORVASTATIN CALCIUM 10 MG TABLET PO SCH (22:32)
[2016-09-07] MEDS: INSULIN GLARGINE,HUM.REC.ANLOG 300 UNIT/3 ML INSULN.PEN SUBCUT SCH (22:33)
[2016-09-08 05:19] LABS: HEMATOCRIT 31.3 % (36.0-47.0); HEMOGLOBIN 10.5 g/dL (12.0-15.5); HGB HCT DIFFERENCE 0.2; MEAN CORPUSCULAR HEMOGLOBIN 29.5 pg (27.0-33.4); MEAN CORPUSCULAR HGB CONC 33.4 g/dL (32.0-36.0); MEAN CORPUSCULAR VOLUME 88 fl (80-97); RED BLOOD COUNT 3.55 10^6/uL (3.72-5.28); RED CELL DISTRIBUTION WIDTH 14.3 % (11.5-14.0); WHITE BLOOD COUNT 7.4 10^3/uL (4.0-10.5)
[2016-09-08 05:51] LABS: ANION GAP 8 (5-19); BLOOD UREA NITROGEN 24 mg/dL (7-20); CALCIUM 8.9 mg/dL (8.4-10.2); CARBON DIOXIDE 28 mmol/L (22-30); CHLORIDE 108 mmol/L (98-107); CREATININE RESULT 1.36 mg/dL (0.52-1.25); DIGOXIN 0.81 ng/mL (0.8-2.0); GLUCOSE 145 mg/dL (75-110); POTASSIUM 4.7 mmol/L (3.6-5.0); SODIUM 143.5 mmol/L (137-145)
[2016-09-08] MEDS: PROMETHAZINE HCL 25 MG TABLET PO PRN (06:36)
[2016-09-08 08:05] LABS: APPEARANCE,URINE CLEAR; BILIRUBIN,URINE NEGATIVE (NEGATIVE); GLUCOSE, URINE NEGATIVE (NEGATIVE); KETONES,URINE NEGATIVE (NEGATIVE); LEUKOCYTE ESTERASE,URINE NEGATIVE (NEGATIVE); NITRITE,URINE NEGATIVE (NEGATIVE); PROTEIN,URINE NEGATIVE (NEGATIVE); URINE SPECIFIC GRAVITY 1.011; UROBILINOGEN,URINE NEGATIVE mg/dL (<2.0)
[2016-09-08] MEDS: GLIPIZIDE XL 5 MG TAB.ER.24 PO SCH ×2 (10:09→17:55)
[2016-09-08] MEDS: PANTOPRAZOLE SODIUM 40 MG VIAL IV SCH ×2 (10:09→22:06)
[2016-09-08] MEDS: APIXABAN 2.5 MG TABLET PO SCH ×2 (10:09→17:56)
[2016-09-08] MEDS: METOPROLOL TARTRATE 100 MG TABLET PO SCH ×2 (10:10→22:06)
[2016-09-08] MEDS: ASPIRIN 81 MG TABLET, ENT COATED PO SCH (10:10)
[2016-09-08] MEDS: CEFUROXIME 250 MG TABLET PO SCH ×2 (10:13→17:56)
[2016-09-08] MEDS: NYSTATIN TOPICAL POWDER 15 GM TP SCH ×2 (10:18→17:55)
--- NOTE | 2016-09-08 11:13 | PDOC PROGRESS REPORT ---
Subjective Progress Note for:: 09/08/16 Subjective:: Patient is seen on morning rounds. She is resting comfortably in bed. She states she feels much better than yesterday. She denies any shortness of breath , dyspnea or chest pain. She does have occasional palpitations. She denies any nausea, vomiting or diarrhea. She is eating and drinking well. She denies any dysuria at the present time. She states she has had frequent UTI's over the past few years. She denies any palpitations this morning. She is still on IV diltiazem for atrial fibrillation with RVR. Physical Exam Vital Signs: Temp Pulse Resp BP Pulse Ox 97.8 F 89 24 H 140/77 H 97 09/08/16 08:00 09/08/16 08:00 09/08/16 08:00 09/08/16 08:00 09/08/16 08:00 Intake & Output 09/07/16 09/08/16 09/09/16 06:59 06:59 06:59 Intake Total 497 1604 Output Total 650 1500 Balance -153 104 Weight 145.1 kg 145.1 kg General appearance: PRESENT: no acute distress, morbidly obese, thin, well- developed, well-nourished Head exam: PRESENT: atraumatic, normocephalic Eye exam: PRESENT: conjunctival injection Ear exam: PRESENT: normal external ear exam Mouth exam: PRESENT: moist, tongue midline Neck exam: ABSENT: carotid bruit, JVD, lymphadenopathy, thyromegaly Respiratory exam: PRESENT: clear to auscultation kalyan. ABSENT: rales, rhonchi, wheezes Cardiovascular exam: PRESENT: bradycardia Pulses: PRESENT: normal dorsalis pedis pul GI/Abdominal exam: PRESENT: normal bowel sounds, soft. ABSENT: distended, guarding, mass, organolmegaly, rebound, tenderness Rectal exam: PRESENT: deferred Extremities exam: PRESENT: full ROM. ABSENT: calf tenderness, clubbing, pedal edema Neurological exam: PRESENT: alert, awake, oriented to person, oriented to place , oriented to time, oriented to situation, CN II-XII grossly intact. ABSENT: motor sensory deficit Psychiatric exam: PRESENT: appropriate affect, normal mood. ABSENT: homicidal ideation, suicidal ideation Skin exam: PRESENT: dry, intact, warm. ABSENT: cyanosis, rash Results Laboratory Results: 09/08/16 04:19 07/05/17 04:19 09/08/16 09/08/16 09/08/16 04:19 04:19 06:45 WBC 7.4 RBC 3.55 L Hgb 10.5 L Hct 31.3 L MCV 88 MCH 29.5 MCHC 33.4 RDW 14.3 H Plt Count 184 Sodium 143.5 Potassium 4.7 Chloride 108 H Carbon Dioxide 28 Anion Gap 8 BUN 24 H Creatinine 1.36 H Est GFR ( Amer) 46 L Est GFR (Non-Af Amer) 38 L Glucose 145 H Calcium 8.9 Urine Color YELLOW Urine Appearance CLEAR Urine pH 5.0 Ur Specific [place] 1.011 Urine Protein NEGATIVE Urine Glucose (UA) NEGATIVE Urine Ketones NEGATIVE Urine Blood NEGATIVE Urine Nitrite NEGATIVE Ur Leukocyte Esterase NEGATIVE Urine WBC (Auto) 1 Urine RBC (Auto) 1 09/04/16 08:35 Troponin I 0.013 Impressions: Chest X-Ray 09/07/16 00:00 IMPRESSION: Slightly improved, as above. Assessment & Plan - Diagnosis (1) MIROSLAVA (acute kidney injury) Is this a current diagnosis for this admission?: YesPlan: Improvement with IV hydration back towards underlying CKD 3-4. Will avoid nephrotoxic drugs and dosages (2) Atrial fibrillation with rapid ventricular response Is this a current diagnosis for this admission?: YesPlan: Cardiology following. IV diltiazem drip. She has been receiving renal dosed lovenox. Nursing reports prolonged oozing from venipunture sites, and dark stools. Stool sent for guiac was positive. Will d/c lovenox and start on Protonix, continue aspirin and transition to eliquis once GI status is stabilized (3) UTI (urinary tract infection) Qualifiers: Urinary tract infection type: site unspecified Is this a current diagnosis for this admission?: YesPlan: Urine culture grew E. coli, resistant to multiple antibiotics. It is sensitive to try Ceftriazone, will transition to oral antibioitics tomorrow. (4) CKD (chronic kidney disease), stage III Is this a current diagnosis for this admission?: YesPlan: Improving back towards baseline. Resolving (5) Acute blood loss anemia Is this a current diagnosis for this admission?: Yes - Time Time Spent with patient: 25-34 minutes Critical Time spent with patient: 15-24 minutes Smoking Cessation Education: 3 to 10 minutes Medications reviewed and adjusted accordingly: Yes Anticipated discharge: Home with Homehealth
--- NOTE | 2016-09-08 13:34 | PROGRESS NOTE E ---
Progress Note NAME: FLAQUITO DAO : 1935 AGE: 80Y DATE: 09/08/2016 ROOM: 314 SUBJECTIVE: The patient's earlier heart rate was like to 105-110 beats per minute with a stable blood pressure. Her metoprolol was increased to 100 mg p.o. b.i.d. and her Cardizem drip was discontinued. Note that the patient denies any chest pain or discomfort. There is no shortness of breath. There seems to be no PND and no orthopnea since she is lying down flat. There is no cough or sputum production. There is no chest pain or discomfort. There is no bleeding on Eliquis. There are no TIA or CVA symptoms. OBJECTIVE: GENERAL: On examination, the patient is morbidly obese, in no acute distress. VITAL SIGNS: At present, her temperature is 97.8 degrees Fahrenheit. Earlier, her heart rate was 105, at present is 89 beats per minute, blood pressure is 140/77, respirations are 20 per minute, O2 saturations are 97% on room air. HEAD: Atraumatic, normocephalic. EYES: Pupils are equal, round, regular, reactive to light and accommodation. Extraocular movements are normal. There is no conjunctival pallor. There is no scleral icterus. ENT: Negative. NECK: Supple. There is no JVD. Carotids are equal. There is no bruit. There is no lymphadenopathy. There is no goiter. Trachea is central. LUNGS: A few dry crackles in the right base. The rest of the lungs are clear. There is no chest wall tenderness. There is no rhonchi or wheezing. HEART: S1 and S2 are heard. S4 is of variable intensity. There is no S3 gallop. There is no S4 gallop. There is mitral regurgitation present in the left and also murmur in the left sternal border. The mitral regurgitation murmur is heard in the apex with radiation of the left axilla. There is no rub. ABDOMEN: Soft, obese, nontender. There is no hepatosplenomegaly. Bowel sounds are well heard. There are no tender areas or masses. EXTREMITIES: Femorals are deep. Femorals are diminished. There are no femoral bruits. Leg pulses are diminished. There is no DVT. There is no calf tenderness. There is no cyanosis or clubbing. CENTRAL NERVOUS SYSTEM: The patient is conscious, awake, alert, oriented x3 with no focal deficits. PSYCHIATRIC: The patient's judgment and insight are intact. Her affect is normal. The patient appears to be less anxious today. She is not agitated. INTAKE/OUTPUT: The patient's 24-hour intake is 1604 mL, output is 1500 mL. LABORATORY: The patient's white count is 7400, hemoglobin is 10.5, hematocrit is 31.3, platelet count is 184,000. The patient's sodium is 143.5, potassium is 4.7, chloride 108, CO2 is 28. The patient's BUN is 24, creatinine is 1.36. GFR is 38 mL, which is chronic kidney disease stage 3. Glucose is 125 and calcium is 8.9. IMPRESSION: 1. ATRIAL FIBRILLATION, AT PRESENT VENTRICULAR RESPONSE CONTROLLED. Note that the patient is on metoprolol, which has been increased. The patient is also on Eliquis in renal doses at 2.5 mg p.o. b.i.d. There are no TIA or CVA symptoms. There is no bleeding on Eliquis. 2. URINARY TRACT INFECTION WITH E. COLI. Patient on antibiotics, seems to be improving. 3. OCCULT-POSITIVE BLOOD. The patient's hemoglobin remains stable. 4. HYPERTENSION. Blood pressure well controlled. 5. DIABETES MELLITUS TYPE 2 WITH CHRONIC KIDNEY DISEASE. Continue patient on current antidiabetic medication. 6. CHRONIC KIDNEY DISEASE, AT PRESENT STAGE 3. Continue current treatment. The patient's potassium is normal. 7. BIBASILAR OPACITY WITH POSSIBLE PLEURAL EFFUSION. There is only left trace pleural effusion now. There is improved aeration right base. There is still some atelectasis versus pneumonia in the left base. Continue antibiotics. Continue respiratory treatment. 8. HISTORY OF SLEEP APNEA. Patient empirically on CPAP. As an outpatient, have a repeat sleep study and CPAP titration is per Dr. Mcmahan. 9. HYPERLIPIDEMIA. 10. MORBID OBESITY. 11. PROBABLE ANXIETY. PLAN: As mentioned above. Note that the patient had an echocardiogram. Will go for reading later today. Will read the echo and discuss it with the patient. NOTE: Thirty minutes spent on this patient with more than 50% of the time spent in direct patient care. Medications have been reviewed and medications have been adjusted in the form of increasing the patient's metoprolol and stopping the patient's Cardizem. If the heart rate is controlled, the patient may be discharged in 24-48 hours. NOTE: In view of the patient's renal failure, obesity, atrial fibrillation, diabetes mellitus, and hypertension, the patient's treatment involves highly complex medical decision making. Will follow with you. Discussed with the other caregiving providers on the case and formulated a care of plan in conjunction with them after discussions with the other caregiving providers. DICTATING PHYSICIAN: MADDIE MALIK M.D. [id number] PHY#: [id number] ID: [id number] JOB#: [id number] ACCT: [id number] cc: >
--- NOTE | 2016-09-08 17:31 | XCELERA REPORT ---
[address] [address] Transthoracic Echocardiogram Report Name: FLAQUITO DAO Age: 80 yrs Gender: Female : 1935 Patient Status: Inpatient Patient Location: 3W\S\314\S\A Study Date: 09/08/2016 09:07 AM Height: 67 in Weight: 313 lb BSA: 2.4 m2 Procedure: A two-dimensional transthoracic echocardiogram with color flow and Doppler was performed. Study Quality: Technically suboptimal. Images were not obtained from all of the standard acoustic windows due to the limited scope of the study. Reason For Study: ATRIAL FIBRILLATION / HYPERTENSION History: ATRIAL FIBRILLATION / HYPERTENSION. Ordering Physician: KATY MALIK Performed By: Jesse Talamantes Interpretation Summary The left ventricle is grossly normal size. There is mild concentric left ventricular hypertrophy. LV EF is 60% Left ventricular systolic function is normal. tHERE IS NO APICAL CHAMBER VIEWS.hENC CANNOT COMMENT ON THE APICAL AND BASAL INFERIOR FISCHER AND THE APICAL AND BASAL ANTERIOR FISCHER.tHE MID lv FISCHER AND THE THE REST OF THE lv FISCHER CONTRACT NORMALLY. The left atrial size is normal. There is no evidence of mitral valve prolapse. There is no mitral valve stenosis. There is a mild amount of mitral regurgitation There is no aortic valve stenosis There is no LVOT obstruction. No aortic regurgitation is present. There is no tricuspid stenosis. There is a mild amount of tricuspid regurgitation There is mild pulmonary hypertension by echo RVSP is 46 mm of Hg , with RA mean of 10. There is no pericardial effusion. MMode/2D Measurements \T\ Calculations RVDd: 2.3 cm LVIDd: 3.6 cm FS: 35.0 % Ao root diam: 3.5 cm IVSd: 1.2 cm LVIDs: 2.4 cm EDV(Teich): 55.5 ml LVPWd: 1.2 cm ESV(Teich): 19.3 ml Ao root area: 9.9 cm2 EF(Teich): 65.2 % LA dimension: 3.6 cm Doppler Measurements \T\ Calculations MV E max riaz: MV P1/2t max riaz: Ao V2 max: LV V1 max P.5 cm/sec 149.9 cm/sec 112.7 cm/sec 2.7 mmHg MV P1/2t: 42.8 msec Ao max PG: LV V1 max: 5.1 mmHg 82.1 cm/sec MVA(P1/2t): 5.1 cm2 MV dec slope: 1026 cm/sec2 PA V2 max: TR max riaz: RAP systole: 82.8 cm/sec 300.0 cm/sec 10.0 mmHg PA max P.7 mmHgTR max P.0 mmHg RVSP(TR): 46.0 mmHg Left Ventricle The left ventricle is grossly normal size. There is mild concentric left ventricular hypertrophy. LV EF is 60%. Left ventricular systolic function is normal. LV diastolic function could not be adequately assessed due to atrial fibrilation. tHERE IS NO APICAL CHAMBER VIEWS.hEN CANNOT COMMENT ON THE APICAL AND BASAL INFERIOR FISCHER AND THE APICAL AND BASAL ANTERIOR FISCHER.tHE MID lv FISCHER AND THE THE REST OF THE lv FISCHER CONTRACT NORMALLY. Right Ventricle The right ventricle is not well visualized secondary to technical limitations. Atria Right atrium not well visualized secondary to technical limitations. The left atrial size is normal. Mitral Valve There is no evidence of mitral valve prolapse. There is no vegetation seen on the mitral valve. There is no mitral valve stenosis. There is a mild amount of mitral regurgitation. Aortic Valve There is no aortic valvular vegetation. There is no aortic valve stenosis. There is no LVOT obstruction. No aortic regurgitation is present. Tricuspid Valve There is no tricuspid stenosis. There is a mild amount of tricuspid regurgitation. There is mild pulmonary hypertension by echo. RVSP is 46 mm of Hg , with RA mean of 10. Pulmonic Valve There is no pulmonic valvular stenosis. There is no pulmonic valvular regurgitation. Great Vessels The aortic root is normal size. Effusions There is no pericardial effusion. : KATY MALIK > Katy Malik
[2016-09-08] MEDS: INSULIN GLARGINE,HUM.REC.ANLOG 300 UNIT/3 ML INSULN.PEN SUBCUT SCH (22:05)
[2016-09-08] MEDS: ATORVASTATIN CALCIUM 10 MG TABLET PO SCH (22:06)
[2016-09-08 23:59] LABS: APPEARANCE,URINE TURBID; BILIRUBIN,URINE NEGATIVE (NEGATIVE); GLUCOSE, URINE NEGATIVE (NEGATIVE); KETONES,URINE NEGATIVE (NEGATIVE); LEUKOCYTE ESTERASE,URINE NEGATIVE (NEGATIVE); NITRITE,URINE NEGATIVE (NEGATIVE); PROTEIN,URINE NEGATIVE (NEGATIVE); URINE SPECIFIC GRAVITY 1.014; UROBILINOGEN,URINE NEGATIVE mg/dL (<2.0)
[2016-09-09 04:53] LABS: ABSOLUTE BASOPHILS # (AUTO) 0.1 10^3/uL (0.0-0.2); ABSOLUTE EOSINOPHILS # (AUTO) 0.5 10^3/uL (0.0-0.6); ABSOLUTE LYMPHOCYTES (AUTO) 1.8 10^3/uL (0.5-4.7); ABSOLUTE MONOCYTES (AUTO) 0.9 10^3/uL (0.1-1.4); ABSOLUTE NEUT (AUTO) 3.9 10^3/uL (1.7-8.2); BASOPHILS % (AUTO) 0.8 % (0-2); EOSINOPHILS % (AUTO) 7.1 % (0-6); HEMATOCRIT 32.5 % (36.0-47.0); HEMOGLOBIN 10.6 g/dL (12.0-15.5); HGB HCT DIFFERENCE -0.7; LYMPHOCYTES % (AUTO) 25.5 % (13-45); MEAN CORPUSCULAR HEMOGLOBIN 29.1 pg (27.0-33.4); MEAN CORPUSCULAR HGB CONC 32.6 g/dL (32.0-36.0); MEAN CORPUSCULAR VOLUME 89 fl (80-97); MONOCYTES % (AUTO) 13.1 % (3-13); RED BLOOD COUNT 3.64 10^6/uL (3.72-5.28); RED CELL DISTRIBUTION WIDTH 14.1 % (11.5-14.0); SEGMENTED NEUTROPHILS % (AUTO) 53.5 % (42-78); WHITE BLOOD COUNT 7.2 10^3/uL (4.0-10.5)
[2016-09-09 05:15] LABS: ANION GAP 8 (5-19); BLOOD UREA NITROGEN 19 mg/dL (7-20); CALCIUM 8.7 mg/dL (8.4-10.2); CARBON DIOXIDE 27 mmol/L (22-30); CHLORIDE 109 mmol/L (98-107); CREATININE RESULT 1.29 mg/dL (0.52-1.25); GLUCOSE 117 mg/dL (75-110); POTASSIUM 4.8 mmol/L (3.6-5.0); SODIUM 144.1 mmol/L (137-145)
[2016-09-09] MEDS: GLIPIZIDE XL 5 MG TAB.ER.24 PO SCH ×2 (08:05→16:17)
[2016-09-09] MEDS: CEFUROXIME 250 MG TABLET PO SCH ×2 (09:34→17:36)
[2016-09-09] MEDS: METOPROLOL TARTRATE 100 MG TABLET PO SCH (09:34)
[2016-09-09] MEDS: ASPIRIN 81 MG TABLET, ENT COATED PO SCH (09:34)
[2016-09-09] MEDS: APIXABAN 2.5 MG TABLET PO SCH ×2 (09:35→17:35)
[2016-09-09] MEDS: PANTOPRAZOLE SODIUM 40 MG VIAL IV SCH (09:35)
[2016-09-09] MEDS: NYSTATIN TOPICAL POWDER 15 GM TP SCH ×2 (09:40→17:36)
--- NOTE | 2016-09-09 10:46 | PDOC DISCHARGE SUMMARY ---
General - Admit/Disc Date/PCP Admission Date/Primary Care Provider: 09/04/16 03:21 ELLE CALZADA MD Discharge Date: 09/09/16 - Discharge Diagnosis (1) MIROSLAVA (acute kidney injury) Is this a current diagnosis for this admission?: YesSummary: Improved to baseline CKDIII (2) Atrial fibrillation with rapid ventricular response Is this a current diagnosis for this admission?: YesSummary: Controlled heart rate with increase in metoprolol and eliquis 2.5 mg bid (3) UTI (urinary tract infection) Is this a current diagnosis for this admission?: YesSummary: Ecoli with some antibiotic resistance (4) CKD (chronic kidney disease), stage III Is this a current diagnosis for this admission?: Yes (5) Acute blood loss anemia Is this a current diagnosis for this admission?: YesSummary: Resolved. Stable hemoglobin. - Additional Information Resuscitation Status: Full Code Home Medications: Albuterol Sulfate [Proair HFA Inhalation Aerosol 8.5 gm MDI] 2 puff IH Q4 PRN Glipizide [Glipizide ER] 5 mg PO BID 08/21/15 Insulin Glargine,Hum.rec.anlog [Lantus Solostar] 30 unit SQ QHS 08/21/15 Metformin HCl [Glucophage] 1,000 mg PO BID 08/21/15 Aspirin [Aspirin EC] 81 mg PO DAILY 09/04/16 Atorvastatin Calcium [Lipitor 10 mg Tablet] 10 mg PO QHS 09/04/16 Acetaminophen [Tylenol 325 mg Tablet] 650 mg PO Q8HP PRN tablet 09/09/16 Apixaban [Eliquis 2.5 mg Tablet] 2.5 mg PO BID #60 tablet 09/09/16 Cefuroxime Axetil [Ceftin 250 mg Tablet] 250 mg PO BID #9 tablet 09/09/16 Metoprolol Tartrate [Lopressor 100 mg Tablet] 100 mg PO Q12 #60 tablet 09/09/16 Nystatin [Mycostatin Topical Powder 15 gm] 1 applic TP BID bottle 09/09/16 History of Present Illness Patient complains of: Shortness of breath and palpitations History of Present Illness: FLAQUITO DAO is a 80 year old female with known atrial fibrillation, diagnosed last November, with a negative nuclear stress study and basically unremarkable echocardiogram either in November or March of this year who presents to the emergency room for evaluation of above complaint. Has underlying asthma and has been having very slowly progressive shortness of breath over the past several months. Scheduled to see Dr. 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 However, over the last day or so, shortness of breath has worsened, along with associated rapid heart rate. What really convinced her to come to the emergency room, however, was that she had become so weak over the last day or so , she simply could not stand without significant help. Was noted to be in atrial fibrillation with rapid ventricular response on presentation, requiring 10 mg IV Cardizem bolus along with Cardizem drip, which has kept her rate nicely controlled. Hemodynamically stable otherwise. She has had some nausea but no vomiting. Occasional dysuria; she has actually been treated with several courses of oral antibiotics over the last month for persistent urinary tract infection. 2 episodes of diarrhea over the last 24 hours. No chest pain. No fever or chills. Hospital Course Hospital Course: Patient was admitted to the hospitalist service on IMCU on telemetry. She was started on IV cardiazem drip in the ED. Cardiology was consulted Dr Staton saw the patient in consult. The IV cardiazem was continued for the next 2 days with little improvement in her. Her metoprolol was increased to 100 mg bid with improvement in rate control. She was initially started on lovenox subcutaneous. She did have guiac positive stool but no change in H&H. She was found to have a uti and was placed on ceftriazone. Urine culture grew ecoli with some resistance to antibiotics Physical Exam Vital Signs: Temp Pulse Resp BP Pulse Ox 97.1 F 122 H 20 113/92 H 91 L 09/09/16 03:32 09/09/16 07:00 09/09/16 03:32 09/09/16 03:32 09/09/16 04:14 Intake & Output 09/08/16 09/09/16 09/10/16 06:59 06:59 06:59 Intake Total 1604 498 Output Total 1500 800 Balance 104 -302 Weight 145.1 kg 144 kg General appearance: PRESENT: no acute distress, morbidly obese, well-developed, well-nourished Head exam: PRESENT: atraumatic, normocephalic Eye exam: PRESENT: conjunctiva pink, EOMI, PERRLA. ABSENT: scleral icterus Ear exam: PRESENT: normal external ear exam Mouth exam: PRESENT: moist, tongue midline Teeth exam: PRESENT: edentulous Neck exam: ABSENT: carotid bruit, JVD, lymphadenopathy, thyromegaly Respiratory exam: PRESENT: clear to auscultation kalyan, symmetrical, unlabored. ABSENT: rales, rhonchi, wheezes Cardiovascular exam: PRESENT: irregular rhythm, +S1, +S2. ABSENT: diastolic murmur, rubs, systolic murmur Pulses: PRESENT: normal dorsalis pedis pul Vascular exam: PRESENT: normal capillary refill GI/Abdominal exam: PRESENT: normal bowel sounds, soft. ABSENT: distended, guarding, mass, organolmegaly, rebound, tenderness Rectal exam: PRESENT: deferred Extremities exam: PRESENT: full ROM. ABSENT: calf tenderness, clubbing, pedal edema Neurological exam: PRESENT: alert, awake, oriented to person, oriented to place , oriented to time, oriented to situation, CN II-XII grossly intact. ABSENT: motor sensory deficit Psychiatric exam: PRESENT: appropriate affect, normal mood. ABSENT: homicidal ideation, suicidal ideation Skin exam: PRESENT: dry, intact, warm. ABSENT: cyanosis, rash Results Laboratory Results: 09/09/16 04:20 09/09/16 04:20 09/08/16 09/08/16 09/09/16 17:08 17:10 04:20 WBC 7.2 RBC 3.64 L Hgb 10.6 L Hct 32.5 L MCV 89 MCH 29.1 MCHC 32.6 RDW 14.1 H Plt Count 195 Seg Neutrophils % 53.5 Lymphocytes % 25.5 Monocytes % 13.1 H Eosinophils % 7.1 H Basophils % 0.8 Absolute Neutrophils 3.9 Absolute Lymphocytes 1.8 Absolute Monocytes 0.9 Absolute Eosinophils 0.5 Absolute Basophils 0.1 Sodium Potassium Chloride Carbon Dioxide Anion Gap BUN Creatinine Est GFR ( Amer) Est GFR (Non-Af Amer) Glucose Calcium Urine Color CLAIR Urine Appearance TURBID Urine pH 5.0 Ur Specific [place] 1.014 Urine Protein NEGATIVE Urine Glucose (UA) NEGATIVE Urine Ketones NEGATIVE Urine Blood NEGATIVE Urine Nitrite NEGATIVE Ur Leukocyte Esterase NEGATIVE Urine WBC (Auto) 1 Urine RBC (Auto) 0 Stool Occult Blood POSITIVE 09/09/16 04:20 WBC RBC Hgb Hct MCV MCH MCHC RDW Plt Count Seg Neutrophils % Lymphocytes % Monocytes % Eosinophils % Basophils % Absolute Neutrophils Absolute Lymphocytes Absolute Monocytes Absolute Eosinophils Absolute Basophils Sodium 144.1 Potassium 4.8 Chloride 109 H Carbon Dioxide 27 Anion Gap 8 BUN 19 Creatinine 1.29 H Est GFR ( Amer) 48 L Est GFR (Non-Af Amer) 40 L Glucose 117 H Calcium 8.7 Urine Color Urine Appearance Urine pH Ur Specific [place] Urine Protein Urine Glucose (UA) Urine Ketones Urine Blood Urine Nitrite Ur Leukocyte Esterase Urine WBC (Auto) Urine RBC (Auto) Stool Occult Blood 09/04/16 08:35 Blood Blood Culture - Final NO GROWTH IN 5 DAYS 09/04/16 08:35 Troponin I 0.013 Impressions: Chest X-Ray 09/07/16 00:00 IMPRESSION: Slightly improved, as above. Qualifiers PATEINT BEING DISCHARGED WITH ANY OF THE FOLLOWING DIAGNOSIS?: No Plan Discharge Plan: Home with son Time Spent: Less than 30 Minutes
[2016-09-09] MEDS ORDERED: DIGOXIN INJ 0.5 MG/2 ML AMPULE IV ONE (11:15)
--- NOTE | 2016-09-09 11:33 | PROGRESS NOTE E ---
Progress Note NAME: FLAQUITO DAO : 1935 AGE: 80Y DATE: 09/09/2016 ROOM: 314 SUBJECTIVE: The patient denies any chest pain or discomfort. There is no PND, orthopnea or leg edema. The patient denies any palpitations. There is no chest pain. There is no shortness of breath at rest or with the patient walking in her room. She has no TIA or CVA symptoms. No bleeding on Eliquis. The patient at present is comfortable, sitting up in a chair. PHYSICAL EXAMINATION: GENERAL: The patient is morbidly obese but well groomed, in no acute distress. VITAL SIGNS: She is afebrile with a temperature of 97.5 degrees Fahrenheit. Her pulse is 113 beats per minute, irregularly irregular. Blood pressure is 125/89. Respirations are 18 per minute. O2 sats are 98% on room air. HEENT: Head is atraumatic, normocephalic. Eyes - Pupils are equal, round, regular, reactive to light and accommodation. Extraocular movements are normal. There is no conjunctival pallor. There is no scleral icterus. ENT is negative. NECK: Supple. There is no JVD. Carotids are equal. There is no bruit. There is no lymphadenopathy. There is no goiter. Trachea is central. LUNGS: Clear to auscultation and percussion. There is no chest wall tenderness. HEART: S1 and S2 is heard. S1 is of variable intensity. There is no S3 gallop. There is no S4 gallop. There is a murmur of mitral regurgitation present. There is no rub. ABDOMEN: Soft, obese, nontender. There is no hepatosplenomegaly. Bowel sounds are well heard. There are no tender areas or masses. There is no rebound, guarding or rigidity. EXTREMITIES: Femorals are deep. Femorals are diminished. There are no femoral bruits. Leg pulses are diminished. There is no DVT. There is no calf tenderness. There is no cyanosis or clubbing. There is no pedal edema. CENTRAL NERVOUS SYSTEM: The patient is conscious, awake, alert, oriented x3 with no focal deficits. PSYCHIATRIC: The patient's judgement and insight are intact. Her affect is normal. DIAGNOSTICS: On the patient's echocardiogram, limited view, there is no true apical chamber views done; hence, cannot comment on the apical and basal inferior wall and the apical inferior to anterior wall. The mid LV wall and the rest of the LV alvares contract normally. The left atrium is of normal size. There is a mild amount of mitral regurgitation. There is a mild amount of tricuspid regurgitation. The right ventricular systolic pressure is 46 mmHg with an RA mean of 10. There is no pericardial effusion. This has been discussed with the patient. The patient's white count is 7200, hemoglobin is 10.6, hematocrit is 32.5, and platelet count is 195,000. The patient's sodium is 144.1, potassium 4.8, chloride 109, CO2 is 27. The patient's BUN is 19, creatinine is 1.29, GFR is reduced at 40 mL, which is chronic kidney disease stage III. The patient's glucose is 117. Her calcium is 8.7. IMPRESSION: 1. ATRIAL FIBRILLATION, AT PRESENT VENTRICULAR RESPONSE, STILL NOT VERY WELL CONTROLLED. Of note, the patient is on Eliquis 2.5 mg p.o. b.i.d. for stroke prophylaxis, and also the patient is on metoprolol at 100 mg p.o. every 12 hours. We will add a dose of digoxin today at 0.125 mg given IV. We will check the patient's digoxin level in the morning and check the patient's chest x-ray in the morning. 2. UTI. It seems to have resolved with patient on antibiotics. This is due to E. coli urinary tract infection. 3. OCCULT-POSITIVE BLOOD. Hemoglobin appears to be stable. 4. HYPERTENSION. Blood pressure is well controlled. 5. DIABETES MELLITUS, TYPE 2, WITH CHRONIC KIDNEY DISEASE. Continue the patient on current anti-diabetic medication. 6. CHRONIC KIDNEY DISEASE, AT PRESENT STAGE III. Continue current treatment. 7. BIBASILAR OPACITY, POSSIBLE PLEURAL EFFUSION. There is only trace pleural effusion now. There is improved aeration in the right base. There is still some atelectasis versus pneumonia in the left base. Continue antibiotics. Continue respiratory treatment. We will recheck the patient's chest x-ray in the morning. 8. HISTORY OF SLEEP APNEA. The patient is empirically on CPAP at night. As an outpatient she will have a repeat sleep study and CPAP titration as per Dr. Mcmahan. 9. HYPERLIPIDEMIA. 10. MORBID OBESITY. Of note, at present the patient does not appear to be anxious. NOTE: Thirty minutes was spent on the patient with more than 50% of the time spent in direct patient care. I reviewed the patient's medications and added medications. I also discussed with other caregiving providers and formulated a management plan of taking care of the patient after discussions with the other caregiving providers on the case. Of note, this is still a situation with highly complex medical decision making. I will follow with you. DICTATING PHYSICIAN: MADDIE MALIK M.D. [id number] RANDALLY#: [id number] ID: [id number] JOB#: [id number] ACCT: [id number] cc: >
[2016-09-09 15:54] VITALS: BP 137/58
[2016-09-09] MEDS ORDERED: LANSOPRAZOLE 30 MG TAB.RAP.DR PO SCH (18:00)
== END 2016-09-09 18:12 | disposition home health service (06) | DRG 309 ==
LOC: ER 19:03 → EH 09-04 00:34 → UNDOADMIN 09-04 00:34 → EH 09-04 03:21 → 3W 09-04 04:29
PROVIDERS: ADMIT Family Medicine; ATTEND Family Medicine
DX: I48.2 Chronic atrial fibrillation (principal); N17.9 Acute kidney failure, unspecified; N39.0 Urinary tract infection, site not specified; J90 Pleural effusion, not elsewhere classified; D62 Acute posthemorrhagic anemia; Z68.42 Body mass index [BMI] 45.0-49.9, adult; J44.9 Chronic obstructive pulmonary disease, unspecified; E78.5 Hyperlipidemia, unspecified; E10.22 Type 1 diabetes mellitus with diabetic chronic kidney disease; N18.3 Chronic kidney disease, stage 3 (moderate); F41.9 Anxiety disorder, unspecified; G47.30 Sleep apnea, unspecified; E66.01 Morbid (severe) obesity due to excess calories; Z86.73 Personal history of transient ischemic attack (TIA), and cerebral infarction without residual deficits; Z79.84 Long term (current) use of oral hypoglycemic drugs; Z79.82 Long term (current) use of aspirin; Z79.899 Other long term (current) drug therapy; Z79.51 Long term (current) use of inhaled steroids
CPT/HCPCS: 36415; 71010; 80048; 80076; 80162; 81001; 82272; 82962; 83735; 84443; 84484; 85025; 85027; 85610; 85730; 87040; 87086; 87088; 87186; 93005; 93010; 93306; 94660; 94799; 96374; 96375; 99291; J0696; J1160; J1815; J2405; J3490; J7040; S0164

== ENCOUNTER 2016-10-08 18:10 | Inpatient (IN) | payer MEDICARE ==
[2016-10-08] MEDS ORDERED: ASPIRIN 81 MG TABLET, CHEWABLE PO ONE (18:18)
[2016-10-08 18:39] LABS: ABSOLUTE BASOPHILS # (AUTO) 0.1 10^3/uL (0.0-0.2); ABSOLUTE EOSINOPHILS # (AUTO) 0.2 10^3/uL (0.0-0.6); ABSOLUTE LYMPHOCYTES (AUTO) 1.5 10^3/uL (0.5-4.7); ABSOLUTE MONOCYTES (AUTO) 1.2 10^3/uL (0.1-1.4); ABSOLUTE NEUT (AUTO) 6.2 10^3/uL (1.7-8.2); BASOPHILS % (AUTO) 0.7 % (0-2); EOSINOPHILS % (AUTO) 2.7 % (0-6); HEMATOCRIT 36.1 % (36.0-47.0); HEMOGLOBIN 11.8 g/dL (12.0-15.5); HGB HCT DIFFERENCE -0.7; LYMPHOCYTES % (AUTO) 16.1 % (13-45); MEAN CORPUSCULAR HEMOGLOBIN 29.1 pg (27.0-33.4); MEAN CORPUSCULAR HGB CONC 32.6 g/dL (32.0-36.0); MEAN CORPUSCULAR VOLUME 89 fl (80-97); RED BLOOD COUNT 4.03 10^6/uL (3.72-5.28); RED CELL DISTRIBUTION WIDTH 14.3 % (11.5-14.0); SEGMENTED NEUTROPHILS % (AUTO) 67.5 % (42-78); WHITE BLOOD COUNT 9.2 10^3/uL (4.0-10.5)
[2016-10-08] MEDS ORDERED: METOPROLOL TARTRATE 100 MG TABLET PO ONE (18:46)
--- NOTE | 2016-10-08 18:48 | ER Document Report ---
ED General - General Chief Complaint: Chest Pain Stated Complaint: CHEST PAIN Time Seen by Provider: 10/08/16 18:28 Notes: Patient is a 81-year-old female with a past medical history of A. fib with rapid ventricular response, CHF, hypertension, morbid obesity, hyperlipidemia, COPD, who does present with palpitations, shortness of breath and chest pain. Patient states her symptoms started approximately 2 hours prior to arrival. States this feels similar to when she had A. fib with rapid ventricular response in the past. She has not seen a primary care doctor regarding today's episodes. Does note a diffuse chest wall pressure which she describes as a heaviness. Nothing improves or worsens her symptoms. She does admit that she reduce her evening dose of metoprolol to 50 mg 5 days ago due to a side effect of persistent fatigue on high-dose metoprolol. TRAVEL OUTSIDE OF THE [place] IN LAST 30 DAYS: No - Related Data Allergies/Adverse Reactions: Iodinated Contrast- Oral and IV Dye Allergy (Severe, Verified 09/05/16 21:19) ivp dye Allergy (Severe, Uncoded 08/21/15 13:28) difficulty breathing, throat swelling,hives Past Medical History - General Information source: Patient - Social History Smoking Status: Never Smoker Chew tobacco use (# tins/day): No Frequency of alcohol use: None Drug Abuse: None Lives with: Family Family History: DM - Past Medical History Cardiac Medical History: Reports: Hx Atrial Fibrillation, Hx Hypercholesterolemia, Hx Hypertension Denies: Hx DVT, Hx Heart Attack, Hx Pulmonary Embolism Pulmonary Medical History: Reports: Hx Asthma - medicated PRN/ NO MEDS APPROX 1YR, Hx Sleep Apnea - Questionable; repeat sleep study in near future, per patient Neurological Medical History: Denies: Hx Cerebrovascular Accident, Hx Seizures Endocrine Medical History: Reports: Hx Diabetes Mellitus Type 2. Denies: Hx Diabetes Mellitus Type 1, Hx Hyperthyroidism, Hx Hypothyroidism GI Medical History: Denies: Hx Cirrhosis, Hx Gastroesophageal Reflux Disease, Hx Hepatitis, Hx Hiatal Hernia, Hx Ulcer Musculoskeltal Medical History: Reports Hx Arthritis Psychiatric Medical History: Denies: Hx Depression Infectious Medical History: Denies: Hx Hepatitis Past Surgical History: Reports: Hx Cholecystectomy, Hx Hysterectomy. Denies: Hx Mastectomy, Hx Open Heart Surgery, Hx Pacemaker - Immunizations Hx Diphtheria, Pertussis, Tetanus Vaccination: No Review of Systems - Review of Systems Notes: Constitutional: Negative for fever. HENT: Negative for sore throat. Eyes: Negative for visual changes. Cardiovascular: Positive for chest pain. Respiratory: Positive for shortness of breath. Gastrointestinal: Negative for abdominal pain, vomiting or diarrhea. Genitourinary: Negative for dysuria. Musculoskeletal: Negative for back pain. Skin: Negative for rash. Neurological: Negative for headaches, weakness or numbness. 10 point ROS negative except as marked above and in HPI. Physical Exam - Vital signs Vitals: Pulse Ox 98 10/08/16 18:18 Interpretation: Tachycardic, Tachypneic Notes: PHYSICAL EXAMINATION: GENERAL: Appears mildly uncomfortable, slightly diaphoretic HEAD: Atraumatic, normocephalic. EYES: Pupils equal round and reactive to light, extraocular movements intact, sclera anicteric, conjunctiva are normal. ENT: nares patent, oropharynx clear without exudates. Moderately dry mucous membranes. NECK: Normal range of motion, supple without lymphadenopathy LUNGS: Diminished breath sounds at the bases bilaterally. Mild tachypnea with respiratory rate of 22. HEART: Irregularly irregular tachycardia without murmurs ABDOMEN: Soft, nontender, normoactive bowel sounds. No guarding, no rebound. No masses appreciated. EXTREMITIES: Normal range of motion, 2+ pitting edema in the bilateral lower extremities that is equal and symmetric NEUROLOGICAL: No focal neurological deficits. Moves all extremities spontaneously and on command. PSYCH: Normal mood, normal affect. SKIN: Warm, Dry, normal turgor, no rashes or lesions noted. Course - Re-evaluation Re-evalutation: 10/08/16 18:47 Patient presents in A. fib with rapid ventricular response although does not appear nearly as it was when I saw her one month ago. Her rates range anywhere between 130s and 160s, although she is not tachypneic or hypotensive today. Patient does have a history of chronic kidney disease. She did recently have her nighttime dose of metoprolol from 100 mg to 50 mg due to side effects and I anticipate that this is the cause for her A. fib with rapid ventricular response she made this medication change 4 days ago. Will obtain basic laboratories, administer IV metoprolol 3 and attempt to get her rate controlled and then administer her nighttime dose of 100 mg of metoprolol. Due to her ongoing tachycardia patient will require frequent reassessments. 10/08/16 19:37 Patient's laboratories are unchanged from time of discharge without any evidence of significantly worsening kidney function. Her heart rate continues to be variable ranging between as low as 105 and as high as 145. This is after all doses of metoprolol both IV and oral. Will continue to monitor for period of time to see if her rate becomes more controlled after receiving an oral dose of metoprolol. If this does not improve anticipate that she will require admission to the hospital. 10/08/16 20:52 Patient continues to have persistent tachycardia rates ranging from 120s-140s. I have discussed with the hospitalist Dr. Darshan Cartwright who is agreeable starting a diltiazem drip at this time and admitting. [place] remains nontoxic in appearance although states she continues to have intermittent shortness of breath. Chest x-ray is notable for some small amount of bilateral pulmonary edema otherwise unremarkable. Troponin is negative. 10/09/16 02:13 - Vital Signs Vital signs: Temp Pulse Resp BP Pulse Ox 98.3 F 142 H 20 108/79 100 10/08/16 23:06 10/08/16 23:06 10/08/16 23:06 10/09/16 00:16 10/08/16 23:06 - Laboratory Result Diagrams: 10/08/16 18:25 10/08/16 18:25 Laboratory results interpreted by me: 10/08/16 10/08/16 18:25 18:25 Hgb 11.8 L RDW 14.3 H Potassium 5.9 H BUN 33 H Creatinine 1.62 H Est GFR ( Amer) 37 L Est GFR (Non-Af Amer) 31 L Glucose 185 H Albumin 3.4 L - Diagnostic Test Radiology reviewed: Image reviewed, Reports reviewed Radiology results interpreted by me: 10/08/16 20:53 Chest x-ray: No widened mediastinum or pneumothorax, bilateral small pleural effusions - EKG Interpretation by Me Additional EKG results interpreted by me: 10/08/16 20:53 Atrial fibrillation with rapid ventricular response, rate 140. No ST elevations or depressions. QTC is 489. Critical Care Note - Critical Care Note Total time excluding time spent on procedures (mins): 35 Comments: Critical care time spent obtaining history from patient or surrogate, discussions with consultants, development of treatment plan with patient or surrogate, evaluation of patient's response to treatment, examination of patient , ordering and performing treatments and interventions, ordering and review of laboratory studies, re-evaluation of patient's condition, ordering and review of radiographic studies and review of old charts Discharge - Discharge Clinical Impression: Atrial fibrillation with rapid ventricular response, CKD (chronic kidney disease), stage III Atrial fibrillation Qualifiers: Atrial fibrillation type: chronic Qualified Code(s): I48.2 - Chronic atrial fibrillation Condition: Fair Disposition: ADMITTED INPATIENT Admitting Provider: Hospitalist [facility] Unit Admitted: [facility]
--- NOTE | 2016-10-08 18:58 | EKG REPORT ---
SEVERITY:- ABNORMAL ECG - ATRIAL FIBRILLATION LEFT ANTERIOR FASCICULAR BLOCK ANTERIOR INFARCT, OLD LATERAL LEADS ARE ALSO INVOLVED BORDERLINE PROLONGED QT INTERVAL : Confirmed by: Zak Mora MD 08-Oct-2016 18:57:23
[2016-10-08] MEDS ORDERED: METOPROLOL TARTRATE PF/INJ 5 MG/5 ML SDV IV SCH (19:00)
[2016-10-08 19:04] LABS: ALANINE AMINOTRANSFERASE 31 U/L (9-52); ALBUMIN 3.4 g/dL (3.5-5.0); ALKALINE PHOSPHATASE 116 U/L (38-126); ANION GAP 11 (5-19); ASPARTATE AMINO TRANSFERASE 26 U/L (14-36); BILIRUBIN,DIRECT 0.4 mg/dL (0.0-0.4); BLOOD UREA NITROGEN 33 mg/dL (7-20); CALCIUM 8.8 mg/dL (8.4-10.2); CARBON DIOXIDE 23 mmol/L (22-30); CHLORIDE 106 mmol/L (98-107); CREATINE KINASE 38 U/L (30-135); CREATININE RESULT 1.62 mg/dL (0.52-1.25); GLUCOSE 185 mg/dL (75-110); POTASSIUM 5.9 mmol/L (3.6-5.0); TOTAL PROTEIN 6.5 g/dL (6.3-8.2)
--- NOTE | 2016-10-08 19:06 | RADIOLOGY REPORT (SQ) ---
EXAM DESCRIPTION: CHEST SINGLE VIEW COMPLETED DATE/TIME: 10/08/2016 6:56 pm REASON FOR STUDY: cp COMPARISON: 09/07/2016 EXAM PARAMETERS: NUMBER OF VIEWS: One view. TECHNIQUE: Single frontal radiographic view of the chest acquired. RADIATION DOSE: NA LIMITATIONS: None. FINDINGS: LUNGS AND PLEURA: Increased basilar pleural effusions and airspace disease compared with t he previous study. No pneumothorax. MEDIASTINUM AND HILAR STRUCTURES: Stable. HEART AND VASCULAR STRUCTURES: Stable. BONES: No acute findings. HARDWARE: None in the chest. OTHER: No other significant finding. IMPRESSION: Increased basilar pleural effusions and airspace disease compared with the previous stud y. TECHNICAL DOCUMENTATION: JOB ID: [id number]
[2016-10-08 19:16] LABS: CREATINE KINASE MB 0.78 ng/mL (<4.55); TROPONIN I < 0.012 ng/mL
[2016-10-08] MEDS ORDERED: FUROSEMIDE INJ/PF 20 MG/2 ML SDV IV ONE (19:37)
[2016-10-08] MEDS ORDERED: DILTIAZEM HCL/D5W 125 ML IV PRN (20:51)
[2016-10-08] MEDS ORDERED: ACETAMINOPHEN 325 MG TABLET PO PRN (20:52)
[2016-10-08] MEDS ORDERED: DEXTROSE 50%-WATER 25 GM/50 ML DISP.SYRIN IV PRN ×2 (20:54)
[2016-10-08] MEDS ORDERED: LEVALBUTEROL HCL NEB 1.25 MG/3 ML AMPUL NEB PRN (20:54)
[2016-10-08] MEDS ORDERED: GLUCAGON,HUMAN RECOMB 1 MG INJ IM PRN (20:54)
[2016-10-08] MEDS ORDERED: DEXTROSE 40% GEL 15 GM TUBE PO PRN ×2 (20:54)
[2016-10-08] MEDS: ONDANSETRON HCL INJ/PF 4 MG/2 ML SDV IV PRN (21:24)
[2016-10-08] MEDS ORDERED: ATORVASTATIN CALCIUM 10 MG TABLET PO SCH (22:00)
[2016-10-08] MEDS ORDERED: INSULIN GLARGINE,HUM.REC.ANLOG 300 UNIT/3 ML INSULN.PEN SUBCUT SCH (22:00)
[2016-10-08 22:05] LABS: CREATINE KINASE MB 0.65 ng/mL (<4.55)
[2016-10-08 22:17] LABS: TROPONIN I < 0.012 ng/mL
[2016-10-08] MEDS ORDERED: DILTIAZEM HCL/D5W 125 MG/125 ML RTUINJ IV PRN (22:20)
[2016-10-08] MEDS ORDERED: SODIUM POLYSTYRENE SULFONATE 15 GM/60 ML PO ONE (22:30)
[2016-10-09 03:18] LABS: ABSOLUTE BASOPHILS # (AUTO) 0.1 10^3/uL (0.0-0.2); ABSOLUTE EOSINOPHILS # (AUTO) 0.3 10^3/uL (0.0-0.6); ABSOLUTE LYMPHOCYTES (AUTO) 2.1 10^3/uL (0.5-4.7); ABSOLUTE MONOCYTES (AUTO) 1.6 10^3/uL (0.1-1.4); ABSOLUTE NEUT (AUTO) 7.8 10^3/uL (1.7-8.2); BASOPHILS % (AUTO) 0.7 % (0-2); EOSINOPHILS % (AUTO) 2.2 % (0-6); HEMATOCRIT 36.7 % (36.0-47.0); HEMOGLOBIN 11.8 g/dL (12.0-15.5); HGB HCT DIFFERENCE -1.3; LYMPHOCYTES % (AUTO) 17.8 % (13-45); MEAN CORPUSCULAR HEMOGLOBIN 28.8 pg (27.0-33.4); MEAN CORPUSCULAR HGB CONC 32.1 g/dL (32.0-36.0); MEAN CORPUSCULAR VOLUME 90 fl (80-97); MONOCYTES % (AUTO) 13.3 % (3-13); RED BLOOD COUNT 4.09 10^6/uL (3.72-5.28); RED CELL DISTRIBUTION WIDTH 14.6 % (11.5-14.0); WHITE BLOOD COUNT 11.8 10^3/uL (4.0-10.5)
[2016-10-09 03:38] LABS: CREATINE KINASE MB 0.87 ng/mL (<4.55)
[2016-10-09 03:41] LABS: ANION GAP 14 (5-19); BLOOD UREA NITROGEN 34 mg/dL (7-20); CALCIUM 9.1 mg/dL (8.4-10.2); CARBON DIOXIDE 24 mmol/L (22-30); CHLORIDE 108 mmol/L (98-107); CREATINE KINASE 35 U/L (30-135); CREATININE RESULT 1.75 mg/dL (0.52-1.25); GLUCOSE 211 mg/dL (75-110); POTASSIUM 5.5 mmol/L (3.6-5.0); SODIUM 145.5 mmol/L (137-145); TROPONIN I < 0.012 ng/mL
--- NOTE | 2016-10-09 06:18 | PDOC H&P ---
History of Present Illness Admission Date/PCP: 10/08/16 20:54 JAYANT MORROW DO Patient complains of: Palpitations and shortness of breath History of Present Illness: FLAQUITO DAO is a 81 year old female with a past medical history of morbid obesity, obstructive sleep apnea, insulin-dependent diabetes, recurrent urinary tract infection, stage III chronic kidney disease and atrial fibrillation on Eliquis. She has been her usual state of health until 6 hours prior to presentation developing palpitations and shortness of breath she recently complained of excessive fatigue to her primary care provider requesting a reduction in her Lopressor dose from 100 twice daily to 100mg daily and 50 mg nightly. She denies chest pain nausea vomiting or diaphoresis. In the emergency room she is found to have uncontrolled A. fib in the 140s she received several doses of IV metoprolol without significant improvement she started on IV diltiazem and referred to the hospital for admission. Her workup is otherwise remarkable for hyperkalemia at 5.9 without peak T waves. Past Medical History Cardiac Medical History: Reports: Atrial Fibrillation, Hyperlipidema, Hypertension Denies: DVT, Myocardial Infarction, Pulmonary Embolism Pulmonary Medical History: Reports: Asthma - medicated PRN/ NO MEDS APPROX 1YR, Sleep Apnea - Questionable; repeat sleep study in near future, per patient Neurological Medical History: Denies: Seizures Endocrine Medical History: Reports: Diabetes Mellitus Type 2 Denies: Diabetes Mellitus Type 1, Hyperthyroidism, Hypothyroidism GI Medical History: Denies: Cirrhosis, Gastroesophageal Reflux Disease, Hepatitis, Hiatal Hernia Musculoskeltal Medical History: Reports: Arthritis Psychiatric Medical History: Denies: Depression Hematology: Denies: Anemia, Sickle Cell Disease Past Surgical History Past Surgical History: Reports: Cholecystectomy, Hysterectomy Denies: Amputation, Mastectomy, Pacemaker Social History Information Source: Patient Lives with: Family Smoking Status: Never Smoker Frequency of Alcohol Use: None Hx Recreational Drug Use: No Drugs: None Hx Prescription Drug Abuse: No - Advance Directive Resuscitation Status: Full Code Family History Family History: DM Parental Family History Reviewed: Yes Children Family History Reviewed: Yes Sibling(s) Family History Reviewed.: Yes Medication/Allergy Home Medications: Albuterol Sulfate [Proair HFA Inhalation Aerosol 8.5 gm MDI] 2 puff IH Q4 PRN Glipizide [Glipizide ER] 5 mg PO BID 08/21/15 Insulin Glargine,Hum.rec.anlog [Lantus Solostar] 30 unit SQ QHS 08/21/15 Metformin HCl [Glucophage] 1,000 mg PO BID 08/21/15 Aspirin [Aspirin EC] 81 mg PO DAILY 09/04/16 Atorvastatin Calcium [Lipitor 10 mg Tablet] 10 mg PO QHS 09/04/16 Acetaminophen [Tylenol 325 mg Tablet] 650 mg PO Q8HP PRN tablet 09/09/16 Apixaban [Eliquis 2.5 mg Tablet] 2.5 mg PO BID #60 tablet 09/09/16 Cefuroxime Axetil [Ceftin 250 mg Tablet] 250 mg PO BID #9 tablet 09/09/16 Metoprolol Tartrate [Lopressor 100 mg Tablet] 100 mg PO Q12 #60 tablet 09/09/16 Nystatin [Mycostatin Topical Powder 15 gm] 1 applic TP BID bottle 09/09/16 Allergies/Adverse Reactions: Iodinated Contrast- Oral and IV Dye Allergy (Severe, Verified 09/05/16 21:19) ivp dye Allergy (Severe, Uncoded 08/21/15 13:28) difficulty breathing, throat swelling,hives Review of Systems Constitutional: ABSENT: chills, fever(s), headache(s), weight gain, weight loss Eyes: ABSENT: visual disturbances Ears: ABSENT: hearing changes Cardiovascular: ABSENT: chest pain, dyspnea on exertion, edema, orthropnea, palpitations Respiratory: ABSENT: cough, hemoptysis Gastrointestinal: ABSENT: abdominal pain, constipation, diarrhea, hematemesis, hematochezia, nausea, vomiting Genitourinary: ABSENT: dysuria, hematuria Musculoskeletal: ABSENT: joint swelling Integumentary: ABSENT: rash, wounds Neurological: ABSENT: abnormal gait, abnormal speech, confusion, dizziness, focal weakness, syncope Psychiatric: ABSENT: anxiety, depression, homidical ideation, suicidal ideation Endocrine: ABSENT: cold intolerance, heat intolerance, polydipsia, polyuria Hematologic/Lymphatic: ABSENT: easy bleeding, easy bruising Physical Exam Vital Signs: Temp Pulse Resp BP Pulse Ox 97.7 F 103 H 20 116/92 H 99 10/09/16 04:09 10/09/16 04:09 10/09/16 04:09 10/09/16 04:09 10/09/16 04:09 Intake & Output 10/07/16 10/08/16 10/09/16 11:59 11:59 11:59 Intake Total 50 Output Total 225 Balance -175 Weight 145 kg General appearance: PRESENT: no acute distress, well-developed, well-nourished Head exam: PRESENT: atraumatic, normocephalic Eye exam: PRESENT: conjunctiva pink, EOMI, PERRLA. ABSENT: scleral icterus Ear exam: PRESENT: normal external ear exam Mouth exam: PRESENT: moist, tongue midline Neck exam: ABSENT: carotid bruit, JVD, lymphadenopathy, thyromegaly Respiratory exam: PRESENT: clear to auscultation kalyan. ABSENT: rales, rhonchi, wheezes Cardiovascular exam: PRESENT: RRR. ABSENT: diastolic murmur, rubs, systolic murmur Pulses: PRESENT: normal dorsalis pedis pul Vascular exam: PRESENT: normal capillary refill GI/Abdominal exam: PRESENT: normal bowel sounds, soft. ABSENT: distended, guarding, mass, organolmegaly, rebound, tenderness Rectal exam: PRESENT: deferred Extremities exam: PRESENT: full ROM. ABSENT: calf tenderness, clubbing, pedal edema Neurological exam: PRESENT: alert, awake, oriented to person, oriented to place , oriented to time, oriented to situation, CN II-XII grossly intact. ABSENT: motor sensory deficit Psychiatric exam: PRESENT: appropriate affect, normal mood. ABSENT: homicidal ideation, suicidal ideation Skin exam: PRESENT: dry, intact, warm. ABSENT: cyanosis, rash Results Laboratory Results: 10/09/16 03:06 10/09/16 03:06 10/08/16 10/09/16 10/09/16 21:32 03:06 03:06 WBC 11.8 H RBC 4.09 Hgb 11.8 L Hct 36.7 MCV 90 MCH 28.8 MCHC 32.1 RDW 14.6 H Plt Count 294 Seg Neutrophils % 66.0 Lymphocytes % 17.8 Monocytes % 13.3 H Eosinophils % 2.2 Basophils % 0.7 Absolute Neutrophils 7.8 Absolute Lymphocytes 2.1 Absolute Monocytes 1.6 H Absolute Eosinophils 0.3 Absolute Basophils 0.1 Sodium 145.5 H Potassium 5.5 H Chloride 108 H Carbon Dioxide 24 Anion Gap 14 BUN 34 H Creatinine 1.75 H Est GFR ( Amer) 34 L Est GFR (Non-Af Amer) 28 L Glucose 211 H Calcium 9.1 Magnesium 2.1 10/08/16 10/08/16 10/09/16 21:32 21:32 03:06 Creatine Kinase 30 CK-MB (CK-2) 0.65 0.87 Troponin I < 0.012 < 0.012 10/09/16 03:06 Creatine Kinase 35 CK-MB (CK-2) Troponin I Impressions: Chest X-Ray 10/08/16 18:18 IMPRESSION: Increased basilar pleural effusions and airspace disease compared with the previous study. Assessment & Plan - Diagnosis (1) Atrial fibrillation with rapid ventricular response Is this a current diagnosis for this admission?: YesPlan: Secondary to medication indiscretion or intolerance of metoprolol she is currently on IV diltiazem with orders to titrate to heart rate less than 100. Plan to transition to p.o. given Lopressor intolerance. (2) Obstructive sleep apnea Is this a current diagnosis for this admission?: YesPlan: Resume home CPAP (3) CKD (chronic kidney disease), stage III Is this a current diagnosis for this admission?: YesPlan: Avoid nephrotoxic meds and doses reevaluate chemistry. (4) Diabetes mellitus type 1 Qualifiers: Diabetes mellitus complication status: with kidney complications Diabetes mellitus complication detail: with chronic kidney disease Chronic kidney disease stage: stage 3 (moderate) Qualified Code(s): E10.22 - Type 1 diabetes mellitus with diabetic chronic kidney disease; N18.1 - Chronic kidney disease, stage 1 Is this a current diagnosis for this admission?: YesPlan: Continue home regiment with sliding scale insulin q. before meals. (5) Hyperkalemia Is this a current diagnosis for this admission?: YesPlan: Without peak T waves, avoid albuterol secondary to uncontrolled A. fib, Kayexalate ordered follow-up chemistry low potassium diet. - Time Time Spent: 50 to 70 Minutes
[2016-10-09] MEDS: 1/2 NORMAL SALINE 1,000 ML IV PRN ×2 (08:34→21:40)
[2016-10-09] MEDS: ASPIRIN 81 MG TABLET, ENT COATED PO SCH (08:35)
[2016-10-09] MEDS: APIXABAN 2.5 MG TABLET PO SCH ×2 (08:36→17:21)
[2016-10-09] MEDS: INSULIN LISPRO 100 UNIT/ML 3 ML VIAL SUBCUT PRN ×2 (08:38→21:40)
[2016-10-09] MEDS: DOCUSATE SODIUM 100 MG CAPSULE PO SCH ×2 (08:39→17:25)
[2016-10-09 09:51] LABS: CREATINE KINASE MB 0.91 ng/mL (<4.55)
[2016-10-09 09:54] LABS: TROPONIN I < 0.012 ng/mL
[2016-10-09] MEDS ORDERED: METOPROLOL TARTRATE 100 MG TABLET PO SCH (10:00)
[2016-10-09] MEDS ORDERED: GLIPIZIDE XL 5 MG TAB.ER.24 PO SCH (10:00)
--- NOTE | 2016-10-09 10:28 | PDOC PROGRESS REPORT ---
Subjective Progress Note for:: 10/09/16 Subjective:: Patient is seen on morning rounds. She is out of bed in the bedside chair. She denies any chest pain, shortness of breath or dyspnea. She remain in atrial fibrillation at a controlled rate. She states she did reduce her evening dose of metoprolol because she has been chronically fatigued about 5 days ago. She also states she been seen by a new primary care provider, and was diagnosed with B12 deficiency recently. She also complains of nausea, which is chronic. She denies any vomiting or diarrhea. She denies any arthralgias or myalgias. Physical Exam Vital Signs: Temp Pulse Resp BP Pulse Ox 97.6 F 90 20 111/76 100 10/09/16 07:21 10/09/16 07:21 10/09/16 07:21 10/09/16 09:01 10/09/16 07:21 Intake & Output 10/08/16 10/09/16 10/10/16 06:59 06:59 06:59 Intake Total 290 Output Total 625 Balance -335 Weight 145 kg General appearance: PRESENT: no acute distress, morbidly obese, well-developed, well-nourished Head exam: PRESENT: atraumatic, normocephalic Eye exam: PRESENT: conjunctiva pink, EOMI, PERRLA. ABSENT: scleral icterus Ear exam: PRESENT: normal external ear exam Mouth exam: PRESENT: moist, tongue midline Neck exam: ABSENT: carotid bruit, JVD, lymphadenopathy, thyromegaly Respiratory exam: PRESENT: clear to auscultation kalyan. ABSENT: rales, rhonchi, wheezes Cardiovascular exam: PRESENT: irregular rhythm, +S1, +S2. ABSENT: diastolic murmur, rubs, systolic murmur Pulses: PRESENT: normal carotid pulses, normal radial pulses Vascular exam: PRESENT: normal capillary refill GI/Abdominal exam: PRESENT: normal bowel sounds, soft. ABSENT: distended, guarding, mass, organolmegaly, rebound, tenderness Rectal exam: PRESENT: deferred Extremities exam: PRESENT: full ROM. ABSENT: calf tenderness, clubbing, pedal edema Musculoskeletal exam: PRESENT: ambulatory, full ROM Neurological exam: PRESENT: alert, awake, oriented to person, oriented to place , oriented to time, oriented to situation, CN II-XII grossly intact. ABSENT: motor sensory deficit Psychiatric exam: PRESENT: appropriate affect, normal mood. ABSENT: homicidal ideation, suicidal ideation Skin exam: PRESENT: dry, intact, warm. ABSENT: cyanosis, rash Results Laboratory Results: 10/09/16 03:06 10/09/16 03:06 10/08/16 10/09/16 10/09/16 21:32 03:06 03:06 WBC 11.8 H RBC 4.09 Hgb 11.8 L Hct 36.7 MCV 90 MCH 28.8 MCHC 32.1 RDW 14.6 H Plt Count 294 Seg Neutrophils % 66.0 Lymphocytes % 17.8 Monocytes % 13.3 H Eosinophils % 2.2 Basophils % 0.7 Absolute Neutrophils 7.8 Absolute Lymphocytes 2.1 Absolute Monocytes 1.6 H Absolute Eosinophils 0.3 Absolute Basophils 0.1 Sodium 145.5 H Potassium 5.5 H Chloride 108 H Carbon Dioxide 24 Anion Gap 14 BUN 34 H Creatinine 1.75 H Est GFR ( Amer) 34 L Est GFR (Non-Af Amer) 28 L Glucose 211 H Calcium 9.1 Magnesium 2.1 10/08/16 10/08/16 10/09/16 21:32 21:32 03:06 Creatine Kinase 30 CK-MB (CK-2) 0.65 0.87 Troponin I < 0.012 < 0.012 10/09/16 10/09/16 03:06 09:15 Creatine Kinase 35 31 CK-MB (CK-2) Troponin I Impressions: Chest X-Ray 10/08/16 18:18 IMPRESSION: Increased basilar pleural effusions and airspace disease compared with the previous study. Assessment & Plan - Diagnosis (1) Atrial fibrillation with rapid ventricular response Is this a current diagnosis for this admission?: YesPlan: Will continue cardiazem gtt transition to oral (2) Hyperkalemia Is this a current diagnosis for this admission?: YesPlan: Kayexylate. Low potassium diet. Continue to monitor (3) Obstructive sleep apnea Is this a current diagnosis for this admission?: YesPlan: CPAP at bedtime (4) CKD (chronic kidney disease), stage III Is this a current diagnosis for this admission?: YesPlan: Avoid nephrotoxic dosages and medications. Will gently hydrate (5) Diabetes mellitus type 1 Qualifiers: Diabetes mellitus complication status: with kidney complications Diabetes mellitus complication detail: with chronic kidney disease Chronic kidney disease stage: stage 3 (moderate) Qualified Code(s): E10.22 - Type 1 diabetes mellitus with diabetic chronic kidney disease; N18.1 - Chronic kidney disease, stage 1 Is this a current diagnosis for this admission?: Yes (6) HLD (hyperlipidemia) Qualifiers: Hyperlipidemia type: unspecified Qualified Code(s): E78.5 - Hyperlipidemia, unspecified Is this a current diagnosis for this admission?: YesPlan: Continue statin (7) Nausea Is this a current diagnosis for this admission?: Yes - Time Time Spent with patient: 25-34 minutes Critical Time spent with patient: 25-34 minutes Medications reviewed and adjusted accordingly: Yes
[2016-10-09] MEDS: ONDANSETRON HCL INJ/PF 4 MG/2 ML SDV IV PRN (11:30)
[2016-10-09] MEDS ORDERED: METOPROLOL TARTRATE PF/INJ 5 MG/5 ML SDV IV PRN (15:09)
[2016-10-09] MEDS: GLIPIZIDE 5 MG TABLET PO SCH (17:21)
[2016-10-09] MEDS ORDERED: ONDANSETRON 4 MG TAB.RAPDIS PO PRN (17:28)
[2016-10-09] MEDS ORDERED: ONDANSETRON HCL INJ/PF 4 MG/2 ML SDV IV PRN (17:31)
--- NOTE | 2016-10-09 17:47 | PDOC CONSULTATION ---
Consultation Consult Date: 10/09/16 Attending physician:: BRENDA OWENS Consult reason:: Atrial fibrillation with rapid ventricular response History of Present Illness Admission Date/PCP: 10/08/16 20:54 JAYANT MORROW DO Patient complains of: Atrial fibrillation, shortness of breath History of Present Illness: FLAQUITO DAO is a 81 year old female with a past medical history of morbid obesity, obstructive sleep apnea, insulin-dependent diabetes, recurrent urinary tract infection, stage III chronic kidney disease and atrial fibrillation on Eliquis. She has been her usual state of health until 6 hours prior to presentation developing palpitations and shortness of breath she recently complained of excessive fatigue to her primary care provider requesting a reduction in her Lopressor dose from 100 twice daily to 100mg daily and 50 mg nightly. She denies chest pain nausea vomiting or diaphoresis. In the emergency room she is found to have uncontrolled A. fib in the 140s she received several doses of IV metoprolol without significant improvement she started on IV diltiazem and referred to the hospital for admission. Her workup is otherwise remarkable for hyperkalemia at 5.9 without peak T waves. On repeated questioning patient denied any chest pain. She claims compliance with CPAP therapy. Past Medical History Cardiac Medical History: Reports: Atrial Fibrillation, Hyperlipidema, Hypertension Denies: DVT, Myocardial Infarction, Pulmonary Embolism Pulmonary Medical History: Reports: Asthma - medicated PRN/ NO MEDS APPROX 1YR, Sleep Apnea - Questionable; repeat sleep study in near future, per patient Neurological Medical History: Denies: Seizures Endocrine Medical History: Reports: Diabetes Mellitus Type 2 Denies: Diabetes Mellitus Type 1, Hyperthyroidism, Hypothyroidism GI Medical History: Denies: Cirrhosis, Gastroesophageal Reflux Disease, Hepatitis, Hiatal Hernia Musculoskeltal Medical History: Reports: Arthritis Psychiatric Medical History: Denies: Depression Hematology: Denies: Anemia, Sickle Cell Disease Past Surgical History Past Surgical History: Reports: Cholecystectomy, Hysterectomy Denies: Amputation, Mastectomy, Pacemaker Social History Information Source: Patient Lives with: Family Smoking Status: Never Smoker Frequency of Alcohol Use: None Hx Recreational Drug Use: No Drugs: None Hx Prescription Drug Abuse: No - Advance Directive Resuscitation Status: Full Code Surrogate healthcare decision maker:: Currently full code. Patient's son is the surrogate decision-maker. Family History Family History: DM Parental Family History Reviewed: Yes Children Family History Reviewed: Yes Sibling(s) Family History Reviewed.: Yes - Negative for premature coronary artery disease or sudden cardiac in the family amongst first degree relatives. Medication/Allergy Home Medications: Apixaban [Eliquis 2.5 mg Tablet] 2.5 mg PO Q12 10/09/16 Atorvastatin Calcium [Lipitor 10 mg Tablet] 10 mg PO QHS 10/09/16 Glipizide [Glucotrol 5 mg Tablet] 5 mg PO BID 10/09/16 Insulin Glargine,Hum.rec.anlog [Lantus Solostar] 30 units SQ QHS 10/09/16 Metformin HCl [Glucophage] 500 mg PO TID 10/09/16 Metoprolol Tartrate [Lopressor 100 mg Tablet] 100 mg PO Q12 10/09/16 Allergies/Adverse Reactions: Iodinated Contrast- Oral and IV Dye Allergy (Severe, Verified 09/05/16 21:19) ivp dye Allergy (Severe, Uncoded 08/21/15 13:28) difficulty breathing, throat swelling,hives Review of Systems Review of Systems: Please see history of present illness and past medical history as wall. Constitutional: No fever or chills reported. Head : No recent chronic headaches, recent head injury. Eyes: No recent eye pain, diplopia, redness, discharge, acute visual changes. Ears: No recent chronic ear pain, acute hearing loss, ear discharge. Oral cavity: No recent ulcerations, bleeding, oral cavity discomfort. Neck: No recent acute neck pain reported. Hematologic: No recent easy bruising or bleeding or hematologic malignancy reported. Lymphatic: No recent lymphatic malignancy, chronic lymphadenopathy reported yet Cardiovascular system review: See history of present illness. Respiratory system review: No recent chronic cough, hemoptysis, blood clots in the lungs reported. Mild Shortness of breath on exertion Gastrointestinal system review: Negative for any recent acute or chronic abdominal pain, hematemesis, melena, recent change in bowel habits. Genitourinary system review: No recent acute or chronic hematuria, flank pain, UTI etc. reported. Skin system review: Negative for any recent abnormal bruising, no rash, no pruritus reported. Neurologic: No prior history of strokes, mini strokes, seizure disorder. Psychologic: No history of major psychosis or major depression reported. Musculoskeletal: Minor aches and pains reported. No acute joint swelling reported. Endocrine: No recent polyuria, polydipsia, recent heat or cold intolerance. Physical Exam Vital Signs: Temp Pulse Resp BP Pulse Ox 97.8 F 132 H 22 H 140/89 H 94 10/09/16 15:54 10/09/16 15:54 10/09/16 15:54 10/09/16 15:54 10/09/16 15:54 Intake & Output 10/08/16 10/09/16 10/10/16 06:59 06:59 06:59 Intake Total 290 785 Output Total 625 Balance -335 785 Weight 145 kg Exam: GENERAL: well-nourished and in no acute distress. Alert and oriented x3 HEAD: Atraumatic, normocephalic. EYES: Pupils equal round and reactive to light, extraocular movements intact, sclera anicteric, conjunctiva are normal. ENT: TMs normal, nares patent, oropharynx clear without exudates. Moist mucous membranes. No oral ulcerations or bleeding gums noted NECK: supple without lymphadenopathy. Trachea is central. No cervical or axillary lymphadenopathy noted. Carotids are 2+, JVD WNL LUNGS: Respiration seems nonlabored, no significant accessory muscle action noted. Breath sounds clear to auscultation bilaterally and equal noted. No wheezes rales or rhonchi noted. No significant dullness noted on percussion. CHEST: Palpation of the chest wall shows no significant chest wall tenderness. No other significant abnormalities noted. 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 ABDOMEN: Soft, no significant tenderness appreciated, normoactive bowel sounds. No guarding, no rebound. No rigidity noted . No masses appreciated. EXTREMITIES: Pedal pulses are 1-2+, no calf tenderness noted. No clubbing or cyanosis.trace to 1+ pedal edema noted NEUROLOGICAL: Focused neurological exam showed no significant neurologic deficit. Normal speech, no focal weakness appreciated. PSYCH: Normal mood, normal affect. Judgment and insight within normal limits. SKIN: No significant ecchymosis, rash, ulcerations or signs of pruritus noted. MUSCULOSKELETAL EXAM: No significant joint swelling noted. Results Laboratory Results: 10/09/16 03:06 10/09/16 03:06 10/08/16 10/09/16 10/09/16 21:32 03:06 03:06 WBC 11.8 H RBC 4.09 Hgb 11.8 L Hct 36.7 MCV 90 MCH 28.8 MCHC 32.1 RDW 14.6 H Plt Count 294 Seg Neutrophils % 66.0 Lymphocytes % 17.8 Monocytes % 13.3 H Eosinophils % 2.2 Basophils % 0.7 Absolute Neutrophils 7.8 Absolute Lymphocytes 2.1 Absolute Monocytes 1.6 H Absolute Eosinophils 0.3 Absolute Basophils 0.1 Sodium 145.5 H Potassium 5.5 H Chloride 108 H Carbon Dioxide 24 Anion Gap 14 BUN 34 H Creatinine 1.75 H Est GFR ( Amer) 34 L Est GFR (Non-Af Amer) 28 L Glucose 211 H Calcium 9.1 Magnesium 2.1 10/08/16 10/08/16 10/09/16 21:32 21:32 03:06 Creatine Kinase 30 CK-MB (CK-2) 0.65 0.87 Troponin I < 0.012 < 0.012 10/09/16 10/09/16 10/09/16 03:06 09:15 09:15 Creatine Kinase 35 31 CK-MB (CK-2) 0.91 Troponin I < 0.012 EKG Comments: Atrial fibrillation with rapid ventricular response, left axis deviation and nonprogression of R-wave anterior precordial lead. Impressions: Chest X-Ray 10/08/16 18:18 IMPRESSION: Increased basilar pleural effusions and airspace disease compared with the previous study. Assessment & Plan - Diagnosis (1) Atrial fibrillation with rapid ventricular response Is this a current diagnosis for this admission?: Yes (2) Hyperkalemia Is this a current diagnosis for this admission?: Yes (3) Obstructive sleep apnea Is this a current diagnosis for this admission?: Yes (4) CKD (chronic kidney disease), stage III Is this a current diagnosis for this admission?: Yes (5) Dyspnea Qualifiers: Dyspnea type: shortness of breath Qualified Code(s): R06.02 - Shortness of breath; R06.00 - Dyspnea, unspecified; R06.01 - Orthopnea Is this a current diagnosis for this admission?: Yes - Notes Notes: Atrial fibrillation with rapid ventricular response: Patient has history of chronic atrial fibrillation. Increased ventricular response could be related to reduction in beta-toyin dose recently and possibly aggravated by development of CHF. Agree with Cardizem drip. Recommend gradually escalating dose of Cardizem by mouth. Hyperkalemia: Currently stable without any EKG manifestation. Obstructive sleep apnea: Patient will benefit from nightly CPAP therapy to be continued while in the hospital. Chronic kidney disease: Currently is stable. Dyspnea: Possibly related to CHF and atrial fibrillation with rapid ventricular response. This is based on review of chest x-ray. Will start patient on small dose of diuretic therapy. Have ordered a BNP level. - Time Time Spent: 50 to 70 Minutes - Recent 2D echocardiogram results were reviewed. CODE STATUS was discussed, patient remains full code. Surrogate decision-maker unchanged. Multiple medical problems were addressed. More than 50% of the time spent coordinating care, discussing management plans with involved caregivers. Management plans discussed with involved personnels. Medical decision making was of moderate to high complexity, patient's has multiple comorbidities. Medications reviewed and adjusted accordingly: Yes
[2016-10-09] MEDS ORDERED: FUROSEMIDE 40 MG TABLET PO SCH (18:00)
[2016-10-09] MEDS ORDERED: FUROSEMIDE 20 MG TABLET PO ONE (19:00)
[2016-10-09] MEDS: METOPROLOL TARTRATE 100 MG TABLET PO SCH (21:39)
[2016-10-09] MEDS: DILTIAZEM HCL 30 MG TABLET PO SCH (21:40)
[2016-10-09] MEDS: INSULIN GLARGINE,HUM.REC.ANLOG 300 UNIT/3 ML INSULN.PEN SUBCUT SCH (21:40)
[2016-10-09] MEDS: ATORVASTATIN CALCIUM 10 MG TABLET PO SCH (21:40)
[2016-10-09] MEDS ORDERED: APIXABAN 2.5 MG TABLET PO SCH (22:00)
[2016-10-10] MEDS: DILTIAZEM HCL 30 MG TABLET PO SCH (06:22)
[2016-10-10] MEDS: ASPIRIN 81 MG TABLET, ENT COATED PO SCH (08:55)
[2016-10-10] MEDS: GLIPIZIDE 5 MG TABLET PO SCH ×2 (08:55→17:24)
[2016-10-10] MEDS: METOPROLOL TARTRATE 100 MG TABLET PO SCH ×2 (08:57→21:50)
[2016-10-10] MEDS: APIXABAN 2.5 MG TABLET PO SCH ×2 (08:57→17:24)
[2016-10-10] MEDS: DOCUSATE SODIUM 100 MG CAPSULE PO SCH ×2 (09:01→17:25)
[2016-10-10] MEDS ORDERED: DILTIAZEM HCL 30 MG TABLET PO ONE (09:09)
[2016-10-10] MEDS ORDERED: FUROSEMIDE INJ/PF 20 MG/2 ML SDV IV ONE (09:12)
[2016-10-10 09:24] LABS: ANION GAP 10 (5-19); BLOOD UREA NITROGEN 29 mg/dL (7-20); CALCIUM 8.8 mg/dL (8.4-10.2); CARBON DIOXIDE 26 mmol/L (22-30); CHLORIDE 103 mmol/L (98-107); CREATININE RESULT 1.47 mg/dL (0.52-1.25); GLUCOSE 195 mg/dL (75-110); MAGNESIUM 1.7 mg/dL (1.6-2.3); POTASSIUM 4.5 mmol/L (3.6-5.0); SODIUM 138.7 mmol/L (137-145)
[2016-10-10] MEDS ORDERED: FUROSEMIDE 40 MG TABLET PO SCH (10:00)
--- NOTE | 2016-10-10 10:30 | PDOC PROGRESS REPORT ---
Subjective Progress Note for:: 10/10/16 Subjective:: Patient is seen on morning rounds. She is out of bed in the bedside chair. She denies any chest pain, shortness of breath or dyspnea. She remain in atrial fibrillation at a controlled rate. She states she is having some bladder spasms from evans catheter. She continues to have lower extremity edema. She is keeping her extremities elevated. She also complains of nausea, which is chronic. She denies any vomiting or diarrhea. She denies any arthralgias or myalgias. Remaining review of systems are negative. Physical Exam Vital Signs: Temp Pulse Resp BP Pulse Ox 98.2 F 98 16 110/81 100 10/10/16 07:47 10/10/16 07:47 10/10/16 07:47 10/10/16 07:47 10/10/16 07:47 Intake & Output 10/09/16 10/10/16 10/11/16 06:59 06:59 06:59 Intake Total 290 2193 Output Total 625 1600 Balance -335 593 Weight 145 kg 147 kg General appearance: PRESENT: no acute distress, well-developed, well-nourished Head exam: PRESENT: atraumatic, normocephalic Eye exam: PRESENT: conjunctiva pink, EOMI, PERRLA. ABSENT: scleral icterus Ear exam: PRESENT: normal external ear exam Neck exam: ABSENT: carotid bruit, JVD, lymphadenopathy, thyromegaly Respiratory exam: PRESENT: crackles, symmetrical, unlabored. ABSENT: rales, rhonchi, wheezes Cardiovascular exam: PRESENT: irregular rhythm, +S1, +S2, systolic murmur Pulses: PRESENT: normal carotid pulses, normal radial pulses Vascular exam: PRESENT: pallor GI/Abdominal exam: PRESENT: ascites, diminished bowel sounds Rectal exam: PRESENT: deferred Extremities exam: PRESENT: full ROM, +2 edema - bilateral lower extremities Musculoskeletal exam: PRESENT: ambulatory, full ROM Neurological exam: PRESENT: alert, awake, oriented to person, oriented to place , oriented to time, oriented to situation, CN II-XII grossly intact. ABSENT: motor sensory deficit Psychiatric exam: PRESENT: appropriate affect, normal mood. ABSENT: homicidal ideation, suicidal ideation Skin exam: PRESENT: dry, intact, warm. ABSENT: cyanosis, rash Results Laboratory Results: 10/09/16 03:06 10/10/16 08:35 10/10/16 08:35 Sodium 138.7 Potassium 4.5 Chloride 103 Carbon Dioxide 26 Anion Gap 10 BUN 29 H Creatinine 1.47 H Est GFR ( Amer) 41 L Est GFR (Non-Af Amer) 34 L Glucose 195 H Calcium 8.8 Magnesium 1.7 10/08/16 10/08/16 10/09/16 21:32 21:32 03:06 Creatine Kinase 30 CK-MB (CK-2) 0.65 0.87 Troponin I < 0.012 < 0.012 NT-Pro-B Natriuret Pep 10/09/16 10/09/16 10/09/16 03:06 09:15 09:15 Creatine Kinase 35 31 CK-MB (CK-2) 0.91 Troponin I < 0.012 NT-Pro-B Natriuret Pep 10/09/16 19:42 Creatine Kinase CK-MB (CK-2) Troponin I NT-Pro-B Natriuret Pep 6380 H Impressions: Chest X-Ray 10/08/16 18:18 IMPRESSION: Increased basilar pleural effusions and airspace disease compared with the previous study. Assessment & Plan - Diagnosis (1) Atrial fibrillation with rapid ventricular response Is this a current diagnosis for this admission?: YesPlan: Will increase cardiazem to 60 mg po q8h (2) Hyperkalemia Is this a current diagnosis for this admission?: YesPlan: Resolved (3) Obstructive sleep apnea Is this a current diagnosis for this admission?: YesPlan: CPAP at bedtime (4) CKD (chronic kidney disease), stage III Is this a current diagnosis for this admission?: YesPlan: Avoid nephrotoxic dosages and medications. Will gently hydrate (5) Diabetes mellitus type 1 Qualifiers: Diabetes mellitus complication status: with kidney complications Diabetes mellitus complication detail: with chronic kidney disease Chronic kidney disease stage: stage 3 (moderate) Qualified Code(s): E10.22 - Type 1 diabetes mellitus with diabetic chronic kidney disease; N18.1 - Chronic kidney disease, stage 1 Is this a current diagnosis for this admission?: Yes (6) HLD (hyperlipidemia) Qualifiers: Hyperlipidemia type: unspecified Qualified Code(s): E78.5 - Hyperlipidemia, unspecified Is this a current diagnosis for this admission?: YesPlan: Continue statin (7) Nausea Is this a current diagnosis for this admission?: Yes - Time Time Spent with patient: 25-34 minutes Critical Time spent with patient: 15-24 minutes Medications reviewed and adjusted accordingly: Yes Anticipated discharge: Home with Homehealth
[2016-10-10 14:20] LABS: APPEARANCE,URINE SLIGHTLY-CLOUDY; BILIRUBIN,URINE NEGATIVE (NEGATIVE); GLUCOSE, URINE NEGATIVE (NEGATIVE); KETONES,URINE NEGATIVE (NEGATIVE); LEUKOCYTE ESTERASE,URINE MODERATE (NEGATIVE); NITRITE,URINE NEGATIVE (NEGATIVE); PROTEIN,URINE NEGATIVE (NEGATIVE); URINE SPECIFIC GRAVITY 1.004; UROBILINOGEN,URINE NEGATIVE mg/dL (<2.0)
[2016-10-10] MEDS: DILTIAZEM HCL 60 MG TABLET PO SCH ×2 (15:57→21:49)
--- NOTE | 2016-10-10 17:27 | PDOC PROGRESS REPORT ---
Subjective Progress Note for:: 10/10/16 Subjective:: Patient seems to be doing better with gradual improvement. Pt is denying any chest arm or neck discomfort. Patient denying any PND, orthopnea. Patient denied any sustained palpitations, dizziness, syncope, near syncope. Patient denying any fever chills. Patient denying any other significant discomfort. Patient is maintaining atrial fibrillation but heart rate better controlled. Review of systems: Rest review of systems negative. Medications: Medications have been reviewed. Physical Exam Vital Signs: Temp Pulse Resp BP Pulse Ox 98.3 F 83 20 113/73 100 10/10/16 15:39 10/10/16 15:39 10/10/16 15:39 10/10/16 15:39 10/10/16 15:39 Intake & Output 10/09/16 10/10/16 10/11/16 06:59 06:59 06:59 Intake Total 290 2193 400 Output Total 625 1600 Balance -335 593 400 Weight 145 kg 147 kg Exam: GENERAL: well-nourished and in no acute distress. Alert and oriented x3 HEAD: Atraumatic, normocephalic. EYES: Pupils equal round and reactive to light, extraocular movements intact, sclera anicteric, conjunctiva are normal. ENT: TMs normal, nares patent, oropharynx clear without exudates. Moist mucous membranes. No oral ulcerations or bleeding gums noted NECK: supple without lymphadenopathy. Trachea is central. No cervical or axillary lymphadenopathy noted. Carotids are 2+, JVD WNL LUNGS: Respiration seems nonlabored, no significant accessory muscle action noted. Breath sounds clear to auscultation bilaterally and equal noted. No wheezes rales or rhonchi noted. No significant dullness noted on percussion. CHEST: Palpation of the chest wall shows no significant chest wall tenderness. No other significant abnormalities noted. 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 ABDOMEN: Soft, no significant tenderness appreciated, normoactive bowel sounds. No guarding, no rebound. No rigidity noted . No masses appreciated. EXTREMITIES: Pedal pulses are 1-2+, no calf tenderness noted. No clubbing or cyanosis.trace to 1+ pedal edema noted NEUROLOGICAL: Focused neurological exam showed no significant neurologic deficit. Normal speech, no focal weakness appreciated. PSYCH: Normal mood, normal affect. Judgment and insight within normal limits. SKIN: No significant ecchymosis, rash, ulcerations or signs of pruritus noted. MUSCULOSKELETAL EXAM: No significant joint swelling noted. Results Laboratory Results: 10/09/16 03:06 10/10/16 08:35 10/10/16 10/10/16 08:35 13:45 Sodium 138.7 Potassium 4.5 Chloride 103 Carbon Dioxide 26 Anion Gap 10 BUN 29 H Creatinine 1.47 H Est GFR ( Amer) 41 L Est GFR (Non-Af Amer) 34 L Glucose 195 H Calcium 8.8 Magnesium 1.7 Urine Color STRAW Urine Appearance SLIGHTLY-CLOUDY Urine pH 5.0 Ur Specific Daisy 1.004 Urine Protein NEGATIVE Urine Glucose (UA) NEGATIVE Urine Ketones NEGATIVE Urine Blood LARGE H Urine Nitrite NEGATIVE Ur Leukocyte Esterase MODERATE H Urine WBC (Auto) 10 Urine RBC (Auto) 67 10/08/16 10/08/16 10/09/16 21:32 21:32 03:06 Creatine Kinase 30 CK-MB (CK-2) 0.65 0.87 Troponin I < 0.012 < 0.012 NT-Pro-B Natriuret Pep 10/09/16 10/09/16 10/09/16 03:06 09:15 09:15 Creatine Kinase 35 31 CK-MB (CK-2) 0.91 Troponin I < 0.012 NT-Pro-B Natriuret Pep 10/09/16 19:42 Creatine Kinase CK-MB (CK-2) Troponin I NT-Pro-B Natriuret Pep 6380 H Impressions: Chest X-Ray 10/08/16 18:18 IMPRESSION: Increased basilar pleural effusions and airspace disease compared with the previous study. Assessment & Plan - Diagnosis (1) Atrial fibrillation with rapid ventricular response Is this a current diagnosis for this admission?: Yes (2) Hyperkalemia Is this a current diagnosis for this admission?: Yes (3) Obstructive sleep apnea Is this a current diagnosis for this admission?: Yes (4) CKD (chronic kidney disease), stage III Is this a current diagnosis for this admission?: Yes (5) Dyspnea Qualifiers: Dyspnea type: shortness of breath Qualified Code(s): R06.02 - Shortness of breath; R06.00 - Dyspnea, unspecified; R06.01 - Orthopnea Is this a current diagnosis for this admission?: Yes (6) Congestive heart failure Qualifiers: Congestive heart failure type: diastolic Congestive heart failure chronicity: acute on chronic Qualified Code(s): I50.33 - Acute on chronic diastolic (congestive) heart failure Is this a current diagnosis for this admission?: Yes - Notes Notes: Atrial fibrillation with rapid ventricular response: Patient has history of chronic atrial fibrillation. Increased ventricular response could be related to reduction in beta-toyin dose recently and possibly aggravated by development of CHF. Cardizem dose has been optimized to 60 mg p.o. every 8. Currently also on metoprolol tartrate at 100 mg p.o. twice daily. Hyperkalemia: Currently stable without any EKG manifestation. This has improved. Potassium level is WNL today. Obstructive sleep apnea: Patient will benefit from nightly CPAP therapy to be continued while in the hospital. Chronic kidney disease: Currently is stable. Dyspnea: Possibly related to CHF and atrial fibrillation with rapid ventricular response. This is based on review of chest x-ray. Will start patient on small dose of diuretic therapy. Noted high BNP level. Congestive heart failure: Based on diastolic dysfunction and fluid overload as well as atrial fibrillation with rapid ventricular response. Continue diuretic therapy. - Time Time with patient: Greater than 35 minutes - CODE STATUS was discussed, patient remains full code. Surrogate decision-maker patient's son. Multiple medical problems were addressed. More than 50% of the time spent coordinating care, discussing management plans with involved caregivers. Management plans discussed with involved personnels. Medical decision making was of moderate to high complexity, patient's has multiple comorbidities. Medications reviewed and adjusted accordingly: Yes
[2016-10-10] MEDS: ATORVASTATIN CALCIUM 10 MG TABLET PO SCH (21:49)
[2016-10-10] MEDS: INSULIN LISPRO 100 UNIT/ML 3 ML VIAL SUBCUT PRN (21:53)
[2016-10-10] MEDS: INSULIN GLARGINE,HUM.REC.ANLOG 300 UNIT/3 ML INSULN.PEN SUBCUT SCH (21:55)
[2016-10-11] MEDS: NYSTATIN TOPICAL POWDER 15 GM TP SCH ×2 (00:28→11:10)
[2016-10-11] MEDS: DILTIAZEM HCL 60 MG TABLET PO SCH (05:11)
--- NOTE | 2016-10-11 07:48 | EKG REPORT ---
SEVERITY:- ABNORMAL ECG - ATRIAL FIBRILLATION LEFT ANTERIOR FASCICULAR BLOCK EXTENSIVE ANTERIOR INFARCT, AGE INDETERMINATE BORDERLINE PROLONGED QT INTERVAL : Confirmed by: Bacilio Hu 11-Oct-2016 07:48:17
[2016-10-11] MEDS: INSULIN LISPRO 100 UNIT/ML 3 ML VIAL SUBCUT PRN ×3 (08:12→22:02)
[2016-10-11] MEDS ORDERED: CEFTRIAXONE 1 GM/D5W RTU 50 ML IV SCH (10:00)
[2016-10-11] MEDS ORDERED: FUROSEMIDE 20 MG TABLET PO SCH (10:00)
[2016-10-11 10:11] LABS: ANION GAP 10 (5-19); BLOOD UREA NITROGEN 28 mg/dL (7-20); CALCIUM 8.7 mg/dL (8.4-10.2); CARBON DIOXIDE 29 mmol/L (22-30); CHLORIDE 103 mmol/L (98-107); CREATININE RESULT 1.28 mg/dL (0.52-1.25); GLUCOSE 174 mg/dL (75-110); POTASSIUM 4.1 mmol/L (3.6-5.0); SODIUM 141.8 mmol/L (137-145)
[2016-10-11] MEDS ORDERED: ONDANSETRON HCL INJ/PF 4 MG/2 ML SDV IV PRN (10:19)
[2016-10-11] MEDS: APIXABAN 2.5 MG TABLET PO SCH ×2 (10:51→17:30)
[2016-10-11] MEDS: ASPIRIN 81 MG TABLET, ENT COATED PO SCH (10:52)
[2016-10-11] MEDS: GLIPIZIDE 5 MG TABLET PO SCH ×2 (10:53→17:29)
[2016-10-11] MEDS: DILTIAZEM HCL 120 MG CAP.SR.24H PO SCH ×2 (10:53→22:04)
[2016-10-11] MEDS: METOPROLOL TARTRATE 100 MG TABLET PO SCH ×2 (10:54→22:04)
[2016-10-11] MEDS: DOCUSATE SODIUM 100 MG CAPSULE PO SCH ×2 (11:10→17:34)
--- NOTE | 2016-10-11 11:16 | PDOC PROGRESS REPORT ---
Subjective Progress Note for:: 10/11/16 Subjective:: Patient is seen on morning rounds. She is out of bed in the bedside chair. She denies any chest pain, shortness of breath or dyspnea. She remains in atrial fibrillation at a controlled rate. She continues to have lower extremity edema, but it is improving. She is keeping her extremities elevated. She also complains of nausea, which is chronic. She denies any vomiting or diarrhea. She denies any arthralgias or myalgias. Remaining review of systems are negative. Physical Exam Vital Signs: Temp Pulse Resp BP Pulse Ox 97.6 F 50 L 18 108/66 99 10/11/16 08:11 10/11/16 08:11 10/11/16 08:11 10/11/16 08:11 10/11/16 08:11 Intake & Output 10/10/16 10/11/16 10/12/16 06:59 06:59 06:59 Intake Total 2193 705 Output Total 1600 2200 Balance 593 -1495 Weight 147 kg 145.4 kg 145.4 kg General appearance: PRESENT: no acute distress, well-developed, well-nourished Head exam: PRESENT: atraumatic, normocephalic Eye exam: PRESENT: conjunctiva pink, EOMI, PERRLA. ABSENT: scleral icterus Ear exam: PRESENT: normal external ear exam Mouth exam: PRESENT: moist, tongue midline Neck exam: ABSENT: carotid bruit, JVD, lymphadenopathy, thyromegaly Respiratory exam: PRESENT: clear to auscultation kalyan, symmetrical, unlabored. ABSENT: rales, rhonchi, wheezes Cardiovascular exam: PRESENT: irregular rhythm, +S1, +S2. ABSENT: diastolic murmur, rubs, systolic murmur Pulses: PRESENT: normal dorsalis pedis pul Vascular exam: PRESENT: normal capillary refill GI/Abdominal exam: PRESENT: normal bowel sounds, soft. ABSENT: distended, guarding, mass, organolmegaly, rebound, tenderness Rectal exam: PRESENT: deferred Extremities exam: PRESENT: full ROM, +2 edema - Bilateral lower extremities pedal to knees. ABSENT: calf tenderness, clubbing Musculoskeletal exam: PRESENT: ambulatory, full ROM Neurological exam: PRESENT: alert, awake, oriented to person, oriented to place , oriented to time, oriented to situation, CN II-XII grossly intact. ABSENT: motor sensory deficit Psychiatric exam: PRESENT: appropriate affect, normal mood. ABSENT: homicidal ideation, suicidal ideation Skin exam: PRESENT: dry, intact, warm. ABSENT: cyanosis, rash Results Laboratory Results: 10/09/16 03:06 10/11/16 09:34 10/10/16 10/11/16 13:45 09:34 Sodium 141.8 Potassium 4.1 Chloride 103 Carbon Dioxide 29 Anion Gap 10 BUN 28 H Creatinine 1.28 H Est GFR ( Amer) 49 L Est GFR (Non-Af Amer) 40 L Glucose 174 H Calcium 8.7 Urine Color STRAW Urine Appearance SLIGHTLY-CLOUDY Urine pH 5.0 Ur Specific [place] 1.004 Urine Protein NEGATIVE Urine Glucose (UA) NEGATIVE Urine Ketones NEGATIVE Urine Blood LARGE H Urine Nitrite NEGATIVE Ur Leukocyte Esterase MODERATE H Urine WBC (Auto) 10 Urine RBC (Auto) 67 10/08/16 10/08/16 10/09/16 21:32 21:32 03:06 Creatine Kinase 30 CK-MB (CK-2) 0.65 0.87 Troponin I < 0.012 < 0.012 NT-Pro-B Natriuret Pep 10/09/16 10/09/16 10/09/16 03:06 09:15 09:15 Creatine Kinase 35 31 CK-MB (CK-2) 0.91 Troponin I < 0.012 NT-Pro-B Natriuret Pep 10/09/16 19:42 Creatine Kinase CK-MB (CK-2) Troponin I NT-Pro-B Natriuret Pep 6380 H Impressions: Chest X-Ray 10/08/16 18:18 IMPRESSION: Increased basilar pleural effusions and airspace disease compared with the previous study. Assessment & Plan - Diagnosis (1) Atrial fibrillation with rapid ventricular response Is this a current diagnosis for this admission?: YesPlan: Will increase cardiazem to 60 mg po q8h (2) Hyperkalemia Is this a current diagnosis for this admission?: YesPlan: Resolved (3) Obstructive sleep apnea Is this a current diagnosis for this admission?: YesPlan: CPAP at bedtime (4) CKD (chronic kidney disease), stage III Is this a current diagnosis for this admission?: YesPlan: Avoid nephrotoxic dosages and medications. Will gently hydrate (5) Diabetes mellitus type 1 Qualifiers: Diabetes mellitus complication status: with kidney complications Diabetes mellitus complication detail: with chronic kidney disease Chronic kidney disease stage: stage 3 (moderate) Qualified Code(s): E10.22 - Type 1 diabetes mellitus with diabetic chronic kidney disease; N18.1 - Chronic kidney disease, stage 1 Is this a current diagnosis for this admission?: Yes (6) HLD (hyperlipidemia) Qualifiers: Hyperlipidemia type: unspecified Qualified Code(s): E78.5 - Hyperlipidemia, unspecified Is this a current diagnosis for this admission?: YesPlan: Continue statin (7) Nausea Is this a current diagnosis for this admission?: Yes - Time Time Spent with patient: 25-34 minutes Critical Time spent with patient: 15-24 minutes Medications reviewed and adjusted accordingly: Yes Anticipated discharge: Home with Homehealth
--- NOTE | 2016-10-11 18:15 | PDOC PROGRESS REPORT ---
Subjective Progress Note for:: 10/11/16 Subjective:: Patient seems to be doing better with gradual improvement. Pt is denying any chest arm or neck discomfort. Patient denying any PND, orthopnea. Patient denied any sustained palpitations, dizziness, syncope, near syncope. Patient denying any fever chills. Patient denying any other significant discomfort. Patient is maintaining atrial fibrillation but heart rate better controlled. Cardizem dose was increased to 60 mg every 6 yesterday. Review of systems: Rest review of systems negative. Medications: Medications have been reviewed. Physical Exam Vital Signs: Temp Pulse Resp BP Pulse Ox 97.6 F 50 L 18 108/66 99 10/11/16 08:11 10/11/16 08:11 10/11/16 08:11 10/11/16 08:11 10/11/16 08:11 Intake & Output 10/10/16 10/11/16 10/12/16 06:59 06:59 06:59 Intake Total 2193 705 Output Total 1600 2200 Balance 593 -1495 Weight 147 kg 145.4 kg 145.4 kg Exam: GENERAL: well-nourished and in no acute distress. Alert and oriented x3 HEAD: Atraumatic, normocephalic. EYES: Pupils equal round and reactive to light, extraocular movements intact, sclera anicteric, conjunctiva are normal. ENT: TMs normal, nares patent, oropharynx clear without exudates. Moist mucous membranes. No oral ulcerations or bleeding gums noted NECK: supple without lymphadenopathy. Trachea is central. No cervical or axillary lymphadenopathy noted. Carotids are 2+, JVD WNL LUNGS: Respiration seems nonlabored, no significant accessory muscle action noted. Breath sounds clear to auscultation bilaterally and equal noted. No wheezes rales or rhonchi noted. No significant dullness noted on percussion. CHEST: Palpation of the chest wall shows no significant chest wall tenderness. No other significant abnormalities noted. HEART: [place] [employer], No PSH, 1/6 DERECK aortic area, 1/6 delong systolic murmur mitral area, no rubs, no gallops. ABDOMEN: Soft, no significant tenderness appreciated, normoactive bowel sounds. No guarding, no rebound. No rigidity noted . No masses appreciated. EXTREMITIES: Pedal pulses are 1-2+, no calf tenderness noted. No clubbing or cyanosis.trace to 1+ pedal edema noted NEUROLOGICAL: Focused neurological exam showed no significant neurologic deficit. Normal speech, no focal weakness appreciated. PSYCH: Normal mood, normal affect. Judgment and insight within normal limits. SKIN: No significant ecchymosis, rash, ulcerations or signs of pruritus noted. MUSCULOSKELETAL EXAM: No significant joint swelling noted. Results Laboratory Results: 10/09/16 03:06 10/10/16 13:45 Urine Color STRAW Urine Appearance SLIGHTLY-CLOUDY Urine pH 5.0 Ur Specific [place] 1.004 Urine Protein NEGATIVE Urine Glucose (UA) NEGATIVE Urine Ketones NEGATIVE Urine Blood LARGE H Urine Nitrite NEGATIVE Ur Leukocyte Esterase MODERATE H Urine WBC (Auto) 10 Urine RBC (Auto) 67 10/08/16 10/08/16 10/09/16 21:32 21:32 03:06 Creatine Kinase 30 CK-MB (CK-2) 0.65 0.87 Troponin I < 0.012 < 0.012 NT-Pro-B Natriuret Pep 10/09/16 10/09/16 10/09/16 03:06 09:15 09:15 Creatine Kinase 35 31 CK-MB (CK-2) 0.91 Troponin I < 0.012 NT-Pro-B Natriuret Pep 10/09/16 19:42 Creatine Kinase CK-MB (CK-2) Troponin I NT-Pro-B Natriuret Pep 6380 H EKG Comments: Twelve-lead EKG shows atrial fibrillation with rapid ventricular response of 112 bpm. Left axis deviation and nonprogression of R-wave noted anterior precordial leads. Impressions: Chest X-Ray 10/08/16 18:18 IMPRESSION: Increased basilar pleural effusions and airspace disease compared with the previous study. Assessment & Plan - Diagnosis (1) Atrial fibrillation with rapid ventricular response Is this a current diagnosis for this admission?: Yes (2) Hyperkalemia Is this a current diagnosis for this admission?: Yes (3) Obstructive sleep apnea Is this a current diagnosis for this admission?: Yes (4) CKD (chronic kidney disease), stage III Is this a current diagnosis for this admission?: Yes (5) Dyspnea Qualifiers: Dyspnea type: shortness of breath Qualified Code(s): R06.02 - Shortness of breath; R06.00 - Dyspnea, unspecified; R06.01 - Orthopnea Is this a current diagnosis for this admission?: Yes (6) Congestive heart failure Qualifiers: Congestive heart failure type: diastolic Congestive heart failure chronicity: acute on chronic Qualified Code(s): I50.33 - Acute on chronic diastolic (congestive) heart failure Is this a current diagnosis for this admission?: Yes - Notes Notes: Atrial fibrillation with rapid ventricular response: Heart rate response is still high. Patient has history of chronic atrial fibrillation. Increased ventricular response could be related to reduction in beta-toyin dose recently and possibly aggravated by development of CHF. Have switched to long- acting 120 mg p.o. twice daily. Currently also on metoprolol tartrate at 100 mg p.o. twice daily. Hyperkalemia: Currently stable without any EKG manifestation. This has improved. Potassium level is WNL today. Obstructive sleep apnea: Patient will benefit from nightly CPAP therapy to be continued while in the hospital. Chronic kidney disease: Currently is stable. Dyspnea: Possibly related to CHF and atrial fibrillation with rapid ventricular response. This is based on review of chest x-ray. Continue on small dose of diuretic therapy. Congestive heart failure: Based on diastolic dysfunction and fluid overload as well as atrial fibrillation with rapid ventricular response. Continue diuretic therapy. Patient much improved. Will sign off. Please reconsult if needed.
[2016-10-11] MEDS: INSULIN GLARGINE,HUM.REC.ANLOG 300 UNIT/3 ML INSULN.PEN SUBCUT SCH (22:03)
[2016-10-11] MEDS: ATORVASTATIN CALCIUM 10 MG TABLET PO SCH (22:04)
[2016-10-12 05:49] LABS: ABSOLUTE EOSINOPHILS # (AUTO) 0.3 10^3/uL (0.0-0.6); ABSOLUTE LYMPHOCYTES (AUTO) 1.2 10^3/uL (0.5-4.7); ABSOLUTE MONOCYTES (AUTO) 1.1 10^3/uL (0.1-1.4); ABSOLUTE NEUT (AUTO) 5.3 10^3/uL (1.7-8.2); BASOPHILS % (AUTO) 0.5 % (0-2); EOSINOPHILS % (AUTO) 3.9 % (0-6); HEMATOCRIT 34.5 % (36.0-47.0); HEMOGLOBIN 11.4 g/dL (12.0-15.5); HGB HCT DIFFERENCE -0.3; LYMPHOCYTES % (AUTO) 15.4 % (13-45); MEAN CORPUSCULAR VOLUME 88 fl (80-97); MONOCYTES % (AUTO) 13.2 % (3-13); RED BLOOD COUNT 3.93 10^6/uL (3.72-5.28); RED CELL DISTRIBUTION WIDTH 14.3 % (11.5-14.0)
[2016-10-12 06:09] LABS: ANION GAP 9 (5-19); BLOOD UREA NITROGEN 28 mg/dL (7-20); CALCIUM 8.7 mg/dL (8.4-10.2); CARBON DIOXIDE 31 mmol/L (22-30); CHLORIDE 103 mmol/L (98-107); CREATININE RESULT 1.24 mg/dL (0.52-1.25); GLUCOSE 130 mg/dL (75-110); SODIUM 143.4 mmol/L (137-145)
[2016-10-12] MEDS: ASPIRIN 81 MG TABLET, ENT COATED PO SCH (09:09)
[2016-10-12] MEDS: METFORMIN HCL 500 MG TABLET PO SCH ×3 (09:09→17:08)
[2016-10-12] MEDS: GLIPIZIDE 5 MG TABLET PO SCH ×2 (09:09→17:07)
[2016-10-12] MEDS: DILTIAZEM HCL 120 MG CAP.SR.24H PO SCH ×2 (09:09→22:04)
[2016-10-12] MEDS: METOPROLOL TARTRATE 100 MG TABLET PO SCH ×2 (09:10→22:05)
[2016-10-12] MEDS: APIXABAN 2.5 MG TABLET PO SCH ×2 (09:15→17:06)
--- NOTE | 2016-10-12 09:21 | PDOC PROGRESS REPORT ---
Subjective Progress Note for:: 10/12/16 Subjective:: Patient has no particular complaints. She is sitting in the bedside chair at the time of my evaluation. Review of telemetry monitoring shows that her heart rate has been in the low 100s over the past 24 hours. She states her shortness of breath is improved since admission. She continues to have swelling in her legs. She denies fever, chills, chest pain, abdominal pain. Physical Exam Vital Signs: Temp Pulse Resp BP Pulse Ox 97.7 F 102 H 19 119/86 H 100 10/12/16 07:19 10/12/16 08:00 10/12/16 08:00 10/12/16 08:00 10/12/16 08:00 Intake & Output 10/11/16 10/12/16 10/13/16 06:59 06:59 06:59 Intake Total 705 380 Output Total 2200 1400 Balance -1495 -1020 Weight 145.4 kg 142.2 kg GENERAL: No acute distress HEENT: Conjunctiva clear, nonicteric, moist mucous membranes, no JVD, midline trachea RESPIRATORY: Clear to auscultation bilaterally, no wheezes, no rhonchi CARDIAC: Irregular, slightly tachycardic ABDOMEN: Soft, nondistended, nontender, positive bowel sounds, no rebound, no guarding EXTREMETIES: Pitting edema in bilateral lower extremity NEUROLOGIC: Alert, oriented to person/place/time, CN's grossly intact, no focal deficits SKIN: No rash, wounds PSYCH: Normal mood, normal affect Results Laboratory Results: 10/12/16 05:27 10/12/16 05:27 10/11/16 10/12/16 10/12/16 09:34 05:27 05:27 WBC 8.0 RBC 3.93 Hgb 11.4 L Hct 34.5 L MCV 88 MCH 29.0 MCHC 33.0 RDW 14.3 H Plt Count 231 Seg Neutrophils % 67.0 Lymphocytes % 15.4 Monocytes % 13.2 H Eosinophils % 3.9 Basophils % 0.5 Absolute Neutrophils 5.3 Absolute Lymphocytes 1.2 Absolute Monocytes 1.1 Absolute Eosinophils 0.3 Absolute Basophils 0.0 Sodium 141.8 143.4 Potassium 4.1 4.0 Chloride 103 103 Carbon Dioxide 29 31 H Anion Gap 10 9 BUN 28 H 28 H Creatinine 1.28 H 1.24 Est GFR ( Amer) 49 L 50 L Est GFR (Non-Af Amer) 40 L 42 L Glucose 174 H 130 H Calcium 8.7 8.7 10/08/16 10/08/16 10/09/16 21:32 21:32 03:06 Creatine Kinase 30 CK-MB (CK-2) 0.65 0.87 Troponin I < 0.012 < 0.012 NT-Pro-B Natriuret Pep 10/09/16 10/09/16 10/09/16 03:06 09:15 09:15 Creatine Kinase 35 31 CK-MB (CK-2) 0.91 Troponin I < 0.012 NT-Pro-B Natriuret Pep 10/09/16 19:42 Creatine Kinase CK-MB (CK-2) Troponin I NT-Pro-B Natriuret Pep 6380 H Impressions: Chest X-Ray 10/08/16 18:18 IMPRESSION: Increased basilar pleural effusions and airspace disease compared with the previous study. Assessment & Plan - Diagnosis (1) Atrial fibrillation with rapid ventricular response Is this a current diagnosis for this admission?: YesPlan: Continue metoprolol and Cardizem for heart rate control. Continue to address decompensated CHF. Treat bibasilar pneumonia. Continue Eliquis for stroke prevention. TSH normal on 09/04/16. (2) Pneumonia Is this a current diagnosis for this admission?: YesPlan: Likely bacterial. Discontinue Rocephin. Start oral doxycycline. Patient is afebrile. Repeat chest x-ray in the morning. (3) Congestive heart failure Qualifiers: Congestive heart failure type: diastolic Congestive heart failure chronicity: acute on chronic Qualified Code(s): I50.33 - Acute on chronic diastolic (congestive) heart failure Is this a current diagnosis for this admission?: YesPlan: Patient has acutely decompensated diastolic heart failure. Discontinue oral Lasix. Start Lasix 20 mg IV every 12 hours. Repeat chest x-ray and proBNP level in the morning. Continue metoprolol. (4) Hyperkalemia Is this a current diagnosis for this admission?: YesPlan: Resolved. (5) UTI (urinary tract infection) Qualifiers: Urinary tract infection type: site unspecified Is this a current diagnosis for this admission?: YesPlan: Doxycycline pending further urine culture. (6) Diabetes mellitus type 1 Qualifiers: Diabetes mellitus complication status: with kidney complications Diabetes mellitus complication detail: with chronic kidney disease Chronic kidney disease stage: stage 3 (moderate) Qualified Code(s): E10.22 - Type 1 diabetes mellitus with diabetic chronic kidney disease; N18.1 - Chronic kidney disease, stage 1 Is this a current diagnosis for this admission?: YesPlan: Continue Lantus and sliding scale insulin. (7) MIROSLAVA (acute kidney injury) Is this a current diagnosis for this admission?: YesPlan: Kidney function much improved. Patient has history of CKD 3 and may be around baseline at this time. (8) CKD (chronic kidney disease), stage III Is this a current diagnosis for this admission?: Yes - Time Time Spent with patient: 35 or more minutes Anticipated discharge: Home Within: within 48 hours
[2016-10-12] MEDS: DOCUSATE SODIUM 100 MG CAPSULE PO SCH ×2 (09:22→17:11)
[2016-10-12] MEDS: FUROSEMIDE INJ/PF 20 MG/2 ML SDV IV SCH ×2 (09:41→22:04)
[2016-10-12] MEDS: DOXYCYCLINE HYCLATE 100 MG TABLET PO SCH ×2 (09:42→22:05)
[2016-10-12] MEDS: INSULIN LISPRO 100 UNIT/ML 3 ML VIAL SUBCUT PRN ×2 (12:10→17:02)
[2016-10-12] MEDS: NYSTATIN TOPICAL POWDER 15 GM TP SCH (13:13)
[2016-10-12] MEDS: ATORVASTATIN CALCIUM 10 MG TABLET PO SCH (22:05)
[2016-10-12] MEDS: INSULIN GLARGINE,HUM.REC.ANLOG 300 UNIT/3 ML INSULN.PEN SUBCUT SCH (22:20)
[2016-10-13 05:33] LABS: ABSOLUTE BASOPHILS # (AUTO) 0.1 10^3/uL (0.0-0.2); ABSOLUTE EOSINOPHILS # (AUTO) 0.4 10^3/uL (0.0-0.6); ABSOLUTE LYMPHOCYTES (AUTO) 1.5 10^3/uL (0.5-4.7); ABSOLUTE MONOCYTES (AUTO) 1.1 10^3/uL (0.1-1.4); ABSOLUTE NEUT (AUTO) 5.1 10^3/uL (1.7-8.2); BASOPHILS % (AUTO) 0.9 % (0-2); EOSINOPHILS % (AUTO) 4.8 % (0-6); HEMATOCRIT 33.4 % (36.0-47.0); HGB HCT DIFFERENCE -0.4; LYMPHOCYTES % (AUTO) 18.2 % (13-45); MEAN CORPUSCULAR HEMOGLOBIN 28.7 pg (27.0-33.4); MEAN CORPUSCULAR HGB CONC 32.9 g/dL (32.0-36.0); MEAN CORPUSCULAR VOLUME 87 fl (80-97); MONOCYTES % (AUTO) 13.7 % (3-13); RED BLOOD COUNT 3.83 10^6/uL (3.72-5.28); RED CELL DISTRIBUTION WIDTH 14.2 % (11.5-14.0); SEGMENTED NEUTROPHILS % (AUTO) 62.4 % (42-78); WHITE BLOOD COUNT 8.2 10^3/uL (4.0-10.5)
[2016-10-13 06:05] LABS: ANION GAP 8 (5-19); BLOOD UREA NITROGEN 25 mg/dL (7-20); CALCIUM 8.6 mg/dL (8.4-10.2); CARBON DIOXIDE 34 mmol/L (22-30); CHLORIDE 102 mmol/L (98-107); CREATININE RESULT 1.26 mg/dL (0.52-1.25); GLUCOSE 160 mg/dL (75-110); MAGNESIUM 1.3 mg/dL (1.6-2.3); POTASSIUM 3.7 mmol/L (3.6-5.0); SODIUM 144.4 mmol/L (137-145)
--- NOTE | 2016-10-13 08:49 | RADIOLOGY REPORT (SQ) ---
EXAM DESCRIPTION: CHEST SINGLE VIEW COMPLETED DATE/TIME: 10/13/2016 8:38 am REASON FOR STUDY: CHF COMPARISON: Chest films 02/28/2012, 11/12/2015, 09/03/2016, 09/07/2016, 10/08/2016 EXAM PARAMETERS: NUMBER OF VIEWS: One view. TECHNIQUE: Single frontal radiographic view of the chest acquired. RADIATION DOSE: NA LIMITATIONS: None. FINDINGS: LUNGS AND PLEURA: Small bilateral pleural effusions are present, similar compared 10/08/2016 , new compared to 09/07/2016. There is bibasilar airspace disease likely atelectasis. Pneumonia could not be excluded. This is si milar compared to 10/08/2016. No perihilar pulmonary edema. No pneumothorax. MEDIASTINUM AND HILAR STRUCTURES: No masses. Contour normal. HEART AND VASCULAR STRUCTURES: Stable moderate cardiomegaly BONES: No acute findings. HARDWARE: None in the chest. OTHER: No other significant finding. IMPRESSION: Bilateral small pleural effusions with bibasilar airspace disease atelectasis versus pne umonia. These findings are similar compared to 10/08/2016, and new compared to 09/07/2016. TECHNICAL DOCUMENTATION: JOB ID: [id number]
[2016-10-13] MEDS: METFORMIN HCL 500 MG TABLET PO SCH ×3 (09:10→18:05)
[2016-10-13] MEDS: ASPIRIN 81 MG TABLET, ENT COATED PO SCH (09:10)
[2016-10-13] MEDS: DOCUSATE SODIUM 100 MG CAPSULE PO SCH ×2 (09:10→18:05)
[2016-10-13] MEDS: METOPROLOL TARTRATE 100 MG TABLET PO SCH ×2 (09:11→22:05)
[2016-10-13] MEDS: APIXABAN 2.5 MG TABLET PO SCH ×2 (09:11→18:05)
[2016-10-13] MEDS: FUROSEMIDE INJ/PF 20 MG/2 ML SDV IV SCH ×2 (09:12→22:05)
[2016-10-13] MEDS: DILTIAZEM HCL 120 MG CAP.SR.24H PO SCH ×2 (09:12→22:05)
[2016-10-13] MEDS: GLIPIZIDE 5 MG TABLET PO SCH ×2 (09:12→18:05)
[2016-10-13] MEDS: NYSTATIN TOPICAL POWDER 15 GM TP SCH (09:13)
[2016-10-13] MEDS: INSULIN LISPRO 100 UNIT/ML 3 ML VIAL SUBCUT PRN ×2 (09:16→22:05)
--- NOTE | 2016-10-13 09:21 | PDOC PROGRESS REPORT ---
Subjective Progress Note for:: 10/13/16 Subjective:: Patient has no particular complaints. She is sitting in the bedside chair at the time of my evaluation. Review of telemetry monitoring shows that her heart rate has been controlled over the past 24 hours. She denies fever, chills, chest pain, abdominal pain. Physical Exam Vital Signs: Temp Pulse Resp BP Pulse Ox 97.5 F 105 H 20 129/78 H 100 10/13/16 04:06 10/13/16 07:00 10/13/16 04:06 10/13/16 04:06 10/13/16 04:06 Intake & Output 10/12/16 10/13/16 10/14/16 06:59 06:59 06:59 Intake Total 380 926 Output Total 1400 1800 Balance -1020 -874 Weight 142.2 kg 143.4 kg GENERAL: No acute distress HEENT: Conjunctiva clear, nonicteric, moist mucous membranes, no JVD, midline trachea RESPIRATORY: Clear to auscultation bilaterally, no wheezes, no rhonchi CARDIAC: Irregular ABDOMEN: Soft, nondistended, nontender, positive bowel sounds, no rebound, no guarding EXTREMETIES: Pitting edema in bilateral lower extremity NEUROLOGIC: Alert, oriented to person/place/time, CN's grossly intact, no focal deficits SKIN: No rash, wounds PSYCH: Normal mood, normal affect Results Laboratory Results: 10/13/16 05:03 10/13/16 05:03 10/13/16 10/13/16 05:03 05:03 WBC 8.2 RBC 3.83 Hgb 11.0 L Hct 33.4 L MCV 87 MCH 28.7 MCHC 32.9 RDW 14.2 H Plt Count 224 Seg Neutrophils % 62.4 Lymphocytes % 18.2 Monocytes % 13.7 H Eosinophils % 4.8 Basophils % 0.9 Absolute Neutrophils 5.1 Absolute Lymphocytes 1.5 Absolute Monocytes 1.1 Absolute Eosinophils 0.4 Absolute Basophils 0.1 Sodium 144.4 Potassium 3.7 Chloride 102 Carbon Dioxide 34 H Anion Gap 8 BUN 25 H Creatinine 1.26 H Est GFR ( Amer) 50 L Est GFR (Non-Af Amer) 41 L Glucose 160 H Calcium 8.6 Magnesium 1.3 L 10/10/16 13:45 Catheterized Urine Urine Culture - Final Escherichia Coli 08/0410/08/16 10/09/16 21:32 21:32 03:06 Creatine Kinase 30 CK-MB (CK-2) 0.65 0.87 Troponin I < 0.012 < 0.012 NT-Pro-B Natriuret Pep 10/09/16 10/09/16 10/09/16 03:06 09:15 09:15 Creatine Kinase 35 31 CK-MB (CK-2) 0.91 Troponin I < 0.012 NT-Pro-B Natriuret Pep 10/09/16 10/13/16 19:42 05:03 Creatine Kinase CK-MB (CK-2) Troponin I NT-Pro-B Natriuret Pep 6380 H 4660 H Impressions: Chest X-Ray 10/13/16 06:00 IMPRESSION: Bilateral small pleural effusions with bibasilar airspace disease atelectasis versus pneumonia. These findings are similar compared to 10/08/2016, and new compared to 09/07/2016. Assessment & Plan - Diagnosis (1) Atrial fibrillation with rapid ventricular response Is this a current diagnosis for this admission?: YesPlan: Continue metoprolol and Cardizem for heart rate control. Continue to address decompensated CHF. Treat bibasilar pneumonia. Continue Eliquis for stroke prevention. TSH normal on 09/04/16. (2) Pneumonia Is this a current diagnosis for this admission?: YesPlan: Likely bacterial. Cefotaxime. Patient is afebrile. (3) Congestive heart failure Qualifiers: Congestive heart failure type: diastolic Congestive heart failure chronicity: acute on chronic Qualified Code(s): I50.33 - Acute on chronic diastolic (congestive) heart failure Is this a current diagnosis for this admission?: YesPlan: Patient has acutely decompensated diastolic heart failure. Continue Lasix 20 mg IV every 12 hours. Continue metoprolol. (4) Hyperkalemia Is this a current diagnosis for this admission?: Yes (5) UTI (urinary tract infection) Qualifiers: Urinary tract infection type: site unspecified Is this a current diagnosis for this admission?: YesPlan: Cefpodoxime. (6) Diabetes mellitus type 1 Qualifiers: Diabetes mellitus complication status: with kidney complications Diabetes mellitus complication detail: with chronic kidney disease Chronic kidney disease stage: stage 3 (moderate) Qualified Code(s): E10.22 - Type 1 diabetes mellitus with diabetic chronic kidney disease; N18.1 - Chronic kidney disease, stage 1 Is this a current diagnosis for this admission?: YesPlan: Continue Lantus and sliding scale insulin. (7) MIROSLAVA (acute kidney injury) Is this a current diagnosis for this admission?: YesPlan: Kidney function much improved. Patient has history of CKD 3 and may be around baseline at this time. (8) CKD (chronic kidney disease), stage III Is this a current diagnosis for this admission?: Yes - Time Time Spent with patient: 35 or more minutes Anticipated discharge: Home Within: within 48 hours
[2016-10-13] MEDS: MAGNESIUM OXIDE 400 MG TABLET PO SCH ×2 (09:22→18:06)
[2016-10-13] MEDS: CHOLECALCIFEROL (D3) 1,000 UNIT TABLET PO SCH (09:22)
[2016-10-13] MEDS: CYANOCOBALAMIN (VITAMIN B-12) INJ 1000 MCG/1 ML VIAL IM SCH (10:39)
[2016-10-13] MEDS: CEFPODOXIME 200 MG TABLET PO SCH ×2 (10:39→22:04)
[2016-10-13] MEDS: ATORVASTATIN CALCIUM 10 MG TABLET PO SCH (22:04)
[2016-10-13] MEDS: INSULIN GLARGINE,HUM.REC.ANLOG 300 UNIT/3 ML INSULN.PEN SUBCUT SCH (22:05)
[2016-10-14] MEDS: APIXABAN 2.5 MG TABLET PO SCH ×2 (10:37→17:41)
[2016-10-14] MEDS: METFORMIN HCL 500 MG TABLET PO SCH ×3 (10:37→17:42)
[2016-10-14] MEDS: CEFPODOXIME 200 MG TABLET PO SCH ×2 (10:39→21:06)
[2016-10-14] MEDS: CHOLECALCIFEROL (D3) 1,000 UNIT TABLET PO SCH (10:40)
[2016-10-14] MEDS: GLIPIZIDE 5 MG TABLET PO SCH ×2 (10:40→17:42)
[2016-10-14] MEDS: METOPROLOL TARTRATE 100 MG TABLET PO SCH ×2 (10:40→21:06)
[2016-10-14] MEDS: DILTIAZEM HCL 120 MG CAP.SR.24H PO SCH ×2 (10:41→21:05)
[2016-10-14] MEDS: MAGNESIUM OXIDE 400 MG TABLET PO SCH ×2 (10:41→17:42)
[2016-10-14] MEDS: ASPIRIN 81 MG TABLET, ENT COATED PO SCH (10:41)
[2016-10-14] MEDS: CYANOCOBALAMIN (VITAMIN B-12) INJ 1000 MCG/1 ML VIAL IM SCH (10:42)
[2016-10-14] MEDS: FUROSEMIDE INJ/PF 20 MG/2 ML SDV IV SCH ×2 (10:43→21:06)
[2016-10-14] MEDS: NYSTATIN TOPICAL POWDER 15 GM TP SCH (10:43)
[2016-10-14] MEDS: DOCUSATE SODIUM 100 MG CAPSULE PO SCH ×2 (10:43→17:44)
--- NOTE | 2016-10-14 16:25 | PDOC PROGRESS REPORT ---
Subjective Progress Note for:: 10/14/16 Subjective:: Patient has no particular complaints. She feels generally much better than yesterday. She is sitting in the bedside chair at the time of my evaluation. Review of telemetry monitoring shows that her heart rate has been controlled over the past 24 hours. She denies fever, chills, chest pain, abdominal pain. Physical Exam Vital Signs: Temp Pulse Resp BP Pulse Ox 98.3 F 101 H 20 126/71 H 92 10/14/16 11:49 10/14/16 14:00 10/14/16 11:49 10/14/16 11:49 10/14/16 11:49 Intake & Output 10/13/16 10/14/16 10/15/16 06:59 06:59 06:59 Intake Total 926 430 200 Output Total 1800 1700 400 Balance -874 -1270 -200 Weight 143.4 kg GENERAL: No acute distress HEENT: Conjunctiva clear, nonicteric, moist mucous membranes, no JVD, midline trachea RESPIRATORY: Clear to auscultation bilaterally, no wheezes, no rhonchi CARDIAC: Irregular ABDOMEN: Soft, nondistended, nontender, positive bowel sounds, no rebound, no guarding EXTREMETIES: Improved edema in bilateral lower extremity NEUROLOGIC: Alert, oriented to person/place/time, CN's grossly intact, no focal deficits SKIN: No rash, wounds PSYCH: Normal mood, normal affect Results Laboratory Results: 10/13/16 05:03 10/13/16 05:03 10/08/16 10/08/16 10/09/16 21:32 21:32 03:06 Creatine Kinase 30 CK-MB (CK-2) 0.65 0.87 Troponin I < 0.012 < 0.012 NT-Pro-B Natriuret Pep 10/09/16 10/09/16 10/09/16 03:06 09:15 09:15 Creatine Kinase 35 31 CK-MB (CK-2) 0.91 Troponin I < 0.012 NT-Pro-B Natriuret Pep 10/09/16 10/13/16 19:42 05:03 Creatine Kinase CK-MB (CK-2) Troponin I NT-Pro-B Natriuret Pep 6380 H 4660 H Impressions: Chest X-Ray 10/13/16 06:00 IMPRESSION: Bilateral small pleural effusions with bibasilar airspace disease atelectasis versus pneumonia. These findings are similar compared to 10/08/2016, and new compared to 09/07/2016. Assessment & Plan - Diagnosis (1) Atrial fibrillation with rapid ventricular response Is this a current diagnosis for this admission?: YesPlan: Continue metoprolol and Cardizem for heart rate control. Continue to address decompensated CHF. Treat bibasilar pneumonia. Continue Eliquis for stroke prevention. TSH normal on 09/04/16. (2) Pneumonia Is this a current diagnosis for this admission?: YesPlan: Likely bacterial. Cefotaxime. Patient is afebrile. (3) Congestive heart failure Qualifiers: Congestive heart failure type: diastolic Congestive heart failure chronicity: acute on chronic Qualified Code(s): I50.33 - Acute on chronic diastolic (congestive) heart failure Is this a current diagnosis for this admission?: YesPlan: Patient has acutely decompensated diastolic heart failure. Continue Lasix 20 mg IV every 12 hours. Continue metoprolol. (4) Hyperkalemia Is this a current diagnosis for this admission?: YesPlan: Resolved. (5) UTI (urinary tract infection) Qualifiers: Urinary tract infection type: site unspecified Is this a current diagnosis for this admission?: YesPlan: Cefpodoxime. (6) Diabetes mellitus type 1 Qualifiers: Diabetes mellitus complication status: with kidney complications Diabetes mellitus complication detail: with chronic kidney disease Chronic kidney disease stage: stage 3 (moderate) Qualified Code(s): E10.22 - Type 1 diabetes mellitus with diabetic chronic kidney disease; N18.1 - Chronic kidney disease, stage 1 Is this a current diagnosis for this admission?: YesPlan: Continue Lantus and sliding scale insulin. (7) MIROSLAVA (acute kidney injury) Is this a current diagnosis for this admission?: YesPlan: Kidney function much improved. Patient has history of CKD 3 and may be around baseline at this time. (8) CKD (chronic kidney disease), stage III Is this a current diagnosis for this admission?: Yes - Time Time Spent with patient: 35 or more minutes
[2016-10-14] MEDS: INSULIN LISPRO 100 UNIT/ML 3 ML VIAL SUBCUT PRN ×2 (17:41→21:45)
[2016-10-14] MEDS: ATORVASTATIN CALCIUM 10 MG TABLET PO SCH (21:06)
[2016-10-14] MEDS: INSULIN GLARGINE,HUM.REC.ANLOG 300 UNIT/3 ML INSULN.PEN SUBCUT SCH (21:46)
[2016-10-15] MEDS: CYANOCOBALAMIN (VITAMIN B-12) INJ 1000 MCG/1 ML VIAL IM SCH (09:50)
[2016-10-15] MEDS: DOCUSATE SODIUM 100 MG CAPSULE PO SCH (09:51)
[2016-10-15] MEDS: GLIPIZIDE 5 MG TABLET PO SCH (09:51)
[2016-10-15] MEDS: APIXABAN 2.5 MG TABLET PO SCH (09:51)
[2016-10-15] MEDS: DILTIAZEM HCL 120 MG CAP.SR.24H PO SCH (09:51)
[2016-10-15] MEDS: CHOLECALCIFEROL (D3) 1,000 UNIT TABLET PO SCH (09:52)
[2016-10-15] MEDS: METOPROLOL TARTRATE 100 MG TABLET PO SCH (09:52)
[2016-10-15] MEDS: ASPIRIN 81 MG TABLET, ENT COATED PO SCH (09:52)
[2016-10-15] MEDS: METFORMIN HCL 500 MG TABLET PO SCH (09:52)
[2016-10-15] MEDS: NYSTATIN TOPICAL POWDER 15 GM TP SCH (09:53)
[2016-10-15] MEDS: FUROSEMIDE INJ/PF 20 MG/2 ML SDV IV SCH (09:53)
[2016-10-15] MEDS: MAGNESIUM OXIDE 400 MG TABLET PO SCH (09:53)
[2016-10-15] MEDS: CEFPODOXIME 200 MG TABLET PO SCH (09:53)
[2016-10-15 11:18] VITALS: BP 114/87
--- NOTE | 2016-10-15 13:16 | PDOC DISCHARGE SUMMARY ---
General - Admit/Disc Date/PCP Admission Date/Primary Care Provider: 10/08/16 20:54 JAYANT MORROW, DO Discharge Date: 10/15/16 - Discharge Diagnosis (1) Atrial fibrillation with rapid ventricular response Is this a current diagnosis for this admission?: Yes (2) Pneumonia Is this a current diagnosis for this admission?: Yes (3) Congestive heart failure Is this a current diagnosis for this admission?: Yes (4) Hyperkalemia Is this a current diagnosis for this admission?: Yes (5) UTI (urinary tract infection) Is this a current diagnosis for this admission?: Yes (6) Diabetes mellitus type 1 Is this a current diagnosis for this admission?: Yes (7) MIROSLAVA (acute kidney injury) Is this a current diagnosis for this admission?: Yes (8) CKD (chronic kidney disease), stage III Is this a current diagnosis for this admission?: Yes - Additional Information Resuscitation Status: Full Code Discharge Diet: Cardiac, Diabetic Discharge Activity: Activity As Tolerated Home Medications: Apixaban [Eliquis 2.5 mg Tablet] 2.5 mg PO Q12 10/09/16 Atorvastatin Calcium [Lipitor 10 mg Tablet] 10 mg PO QHS 10/09/16 Glipizide [Glucotrol 5 mg Tablet] 5 mg PO BID 10/09/16 Insulin Glargine,Hum.rec.anlog [Lantus Solostar] 30 units SQ QHS 10/09/16 Metformin HCl [Glucophage] 500 mg PO TID 10/09/16 Metoprolol Tartrate [Lopressor 100 mg Tablet] 100 mg PO Q12 10/09/16 Aspirin [Ecotrin 81 mg EC Tablet] 81 mg PO DAILY tabec 10/15/16 Cefpodoxime Proxetil [Vantin 100 mg Tablet] 1 tab PO Q12 #14 tab 10/15/16 Cholecalciferol (Vitamin D3) [Vitamin D3 1000 Unit Tablet] 1,000 unit PO DAILY # 30 tablet 10/15/16 Cyanocobalamin (Vitamin B-12) [B-12] 1,000 mcg PO DAILY #30 tablet 10/15/16 Diltiazem HCl [Cardizem Cd 120 mg Capsule] 120 mg PO Q12 #60 cap.sr.24h Furosemide [Lasix] 40 mg PO QAM #30 tablet 10/15/16 Magnesium Oxide [Mag-Ox 400 mg Tablet] 400 mg PO BID #60 tablet 10/15/16 Nystatin [Mycostatin Topical Powder 15 gm] 1 applic TP DAILY #1 bottle 10/15/16 History of Present Illness Patient complains of: Palpitations and shortness of breath History of Present Illness: FLAQUITO DAO is a 81 year old female with a past medical history of morbid obesity, obstructive sleep apnea, insulin-dependent diabetes, recurrent urinary tract infection, stage III chronic kidney disease and atrial fibrillation on Eliquis. She has been her usual state of health until 6 hours prior to presentation developing palpitations and shortness of breath she recently complained of excessive fatigue to her primary care provider requesting a reduction in her Lopressor dose from 100 twice daily to 100mg daily and 50 mg nightly. She denies chest pain nausea vomiting or diaphoresis. In the emergency room she is found to have uncontrolled A. fib in the 140s she received several doses of IV metoprolol without significant improvement she started on IV diltiazem and referred to the hospital for admission. Her workup is otherwise remarkable for hyperkalemia at 5.9 without peak T waves. Hospital Course Hospital Course: Patient was admitted for atrial fibrillation with rapid ventricular response, CHF exacerbation, urinary tract infection, acute kidney injury. With regard to atrial fibrillation with rapid ventricular response she was already on metoprolol. She was placed on Cardizem drip and once heart rate was controlled she was transitioned to oral Cardizem. Heart rate has been controlled on oral metoprolol and Cardizem. With regard to acutely decompensated CHF secondary to diastolic dysfunction and atrial fibrillation with rapid ventricular response. She was diuresed with IV Lasix until stable. She will be discharged on maintenance dose of Lasix 40 mg daily. I will order home health nursing for follow-up, however her son seems very reluctant on several occasions to have home health services follow. With regard to urinary tract infection patient was initially on IV antibiotics. Urine culture eventually grew E. coli with susceptibility to third-generation cephalosporin. She was transitioned to oral cefpodoxime and has remained stable. With regard to acute kidney injury patient's creatinine was 1.6 on admission. Creatinine has improved to 1.26 at time of discharge. It appears the patient probably has states 3 chronic kidney disease at baseline. Patient has recently diagnosed B12 deficiency. She was given B12 injections daily for 3 days and I will start her on oral B12 supplementation at discharge. This will need to be followed up by her primary care provider. Physical Exam Vital Signs: Temp Pulse Resp BP Pulse Ox 98.2 F 107 H 20 119/86 H 95 10/15/16 09:16 10/15/16 09:16 10/15/16 09:16 10/15/16 09:16 10/15/16 10:31 Intake & Output 10/14/16 10/15/16 10/16/16 06:59 06:59 06:59 Intake Total 430 692 Output Total 1700 1650 Balance -1270 -958 Weight 141.5 kg GENERAL: No acute distress HEENT: Conjunctiva clear, nonicteric, moist mucous membranes, no JVD, midline trachea RESPIRATORY: Clear to auscultation bilaterally, no wheezes, no rhonchi CARDIAC: Irregular ABDOMEN: Soft, nondistended, nontender, positive bowel sounds, no rebound, no guarding EXTREMETIES: Improved edema in bilateral lower extremity NEUROLOGIC: Alert, oriented to person/place/time, CN's grossly intact, no focal deficits SKIN: No rash, wounds PSYCH: Normal mood, normal affect Results Laboratory Results: 10/13/16 05:03 10/13/16 05:03 10/08/16 10/08/16 10/09/16 21:32 21:32 03:06 Creatine Kinase 30 CK-MB (CK-2) 0.65 0.87 Troponin I < 0.012 < 0.012 NT-Pro-B Natriuret Pep 10/09/16 10/09/16 10/09/16 03:06 09:15 09:15 Creatine Kinase 35 31 CK-MB (CK-2) 0.91 Troponin I < 0.012 NT-Pro-B Natriuret Pep 10/09/16 10/13/16 19:42 05:03 Creatine Kinase CK-MB (CK-2) Troponin I NT-Pro-B Natriuret Pep 6380 H 4660 H 10/10/16 13:45 Urine Culture - Final Catheterized Urine Escherichia Coli Impressions: Chest X-Ray 10/13/16 06:00 IMPRESSION: Bilateral small pleural effusions with bibasilar airspace disease atelectasis versus pneumonia. These findings are similar compared to 10/08/2016, and new compared to 09/07/2016. Qualifiers PATEINT BEING DISCHARGED WITH ANY OF THE FOLLOWING DIAGNOSIS?: No Plan Time Spent: Less than 30 Minutes
== END 2016-10-15 11:59 | disposition home health service (06) | DRG 308 ==
LOC: ER 18:10 → EH 20:54 → UNDOADMIN 21:35 → 3S 22:52 → EH 22:52
PROVIDERS: ADMIT Internal Medicine; ATTEND Internal Medicine
PROC: 5A09457 Assistance with Respiratory Ventilation, 24-96 Consecutive Hours, Continuous Positive Airway Pressure (ICD-10-PCS; principal; 2016-10-08)
DX: I48.2 Chronic atrial fibrillation (principal); J15.9 Unspecified bacterial pneumonia; I50.33 Acute on chronic diastolic (congestive) heart failure; I13.0 Hypertensive heart and chronic kidney disease with heart failure and stage 1 through stage 4 chronic kidney disease, or unspecified chronic kidney disease; N39.0 Urinary tract infection, site not specified; N17.9 Acute kidney failure, unspecified; Z68.42 Body mass index [BMI] 45.0-49.9, adult; E87.5 Hyperkalemia; E10.22 Type 1 diabetes mellitus with diabetic chronic kidney disease; N18.3 Chronic kidney disease, stage 3 (moderate); E66.01 Morbid (severe) obesity due to excess calories; B96.20 Unspecified Escherichia coli [E. coli] as the cause of diseases classified elsewhere; G47.33 Obstructive sleep apnea (adult) (pediatric); E53.8 Deficiency of other specified B group vitamins; E78.5 Hyperlipidemia, unspecified; J45.909 Unspecified asthma, uncomplicated; M19.90 Unspecified osteoarthritis, unspecified site; Z79.82 Long term (current) use of aspirin; Z79.4 Long term (current) use of insulin; Z79.899 Other long term (current) drug therapy; Z90.49 Acquired absence of other specified parts of digestive tract; Z90.710 Acquired absence of both cervix and uterus; Z91.041 Radiographic dye allergy status; Z83.3 Family history of diabetes mellitus
CPT/HCPCS: 36415; 71010; 80048; 80053; 81001; 82550; 82553; 82962; 83735; 83880; 84484; 85025; 87086; 87088; 87186; 93005; 93010; 96374; 99291; G8978-GP; G8979-GP; J0696; J1815; J1940; J2405; J3420; J3490; S0119

== ENCOUNTER 2016-10-25 15:50 | Inpatient (IN) | payer MEDICARE ==
[2016-10-25] MEDS ORDERED: ASPIRIN 81 MG TABLET, CHEWABLE PO ONE (16:03)
[2016-10-25] MEDS ORDERED: DILTIAZEM HCL INJ 25 MG/5 ML VIAL IV ONE (16:03)
[2016-10-25] MEDS ORDERED: DILTIAZEM HCL/D5W 125 MG/125 ML RTUINJ IV PRN ×2 (16:03→17:43)
--- NOTE | 2016-10-25 16:35 | ER Document Report ---
ED General - General Chief Complaint: Irregular Pulse Stated Complaint: HEART ISSUES Time Seen by Provider: 10/25/16 16:03 Mode of Arrival: Ambulatory Information source: Patient, DrYuliana Office Notes: 81-year-old female history of Brandon patel who is on metoprolol 200 mg daily presents with complains of heart racing. Patient denies any fevers or chills nausea vomiting or diarrhea. Patient admits to fluid gain shortness of breath difficulty breathing TRAVEL OUTSIDE OF THE [place] IN LAST 30 DAYS: No - HPI Onset: Just prior to arrival Onset/Duration: Sudden - Related Data Allergies/Adverse Reactions: Iodinated Contrast- Oral and IV Dye Allergy (Severe, Verified 09/05/16 21:19) ivp dye Allergy (Severe, Uncoded 08/21/15 13:28) difficulty breathing, throat swelling,hives Past Medical History - Social History Smoking Status: Never Smoker Cigarette use (# per day): No Chew tobacco use (# tins/day): No Smoking Education Provided: No Family History: Reviewed & Not Pertinent, DM - Past Medical History Cardiac Medical History: Reports: Hx Atrial Fibrillation, Hx Hypercholesterolemia, Hx Hypertension Denies: Hx DVT, Hx Heart Attack, Hx Pulmonary Embolism Pulmonary Medical History: Reports: Hx Asthma - medicated PRN/ NO MEDS APPROX 1YR, Hx Sleep Apnea - Questionable; repeat sleep study in near future, per patient Neurological Medical History: Denies: Hx Cerebrovascular Accident, Hx Seizures Endocrine Medical History: Reports: Hx Diabetes Mellitus Type 2. Denies: Hx Diabetes Mellitus Type 1, Hx Hyperthyroidism, Hx Hypothyroidism Renal/ Medical History: Denies: Hx Peritoneal Dialysis GI Medical History: Denies: Hx Cirrhosis, Hx Gastroesophageal Reflux Disease, Hx Hepatitis, Hx Hiatal Hernia, Hx Ulcer Musculoskeltal Medical History: Reports Hx Arthritis Psychiatric Medical History: Denies: Hx Depression Infectious Medical History: Denies: Hx Hepatitis Past Surgical History: Reports: Hx Cholecystectomy, Hx Hysterectomy. Denies: Hx Mastectomy, Hx Open Heart Surgery, Hx Pacemaker - Immunizations Hx Diphtheria, Pertussis, Tetanus Vaccination: No Physical Exam - Vital signs Vitals: Pulse Ox 100 10/25/16 16:10 Course - Vital Signs Vital signs: Temp Pulse Resp BP Pulse Ox 20 97/71 L 98 10/25/16 16:31 10/25/16 16:31 10/25/16 16:31 - Laboratory Result Diagrams: 10/25/16 16:25 10/25/16 16:25 Laboratory results interpreted by me: 10/25/16 10/25/16 16:25 16:25 Hgb 11.6 L Hct 35.7 L RDW 14.7 H Chloride 93 L Carbon Dioxide 36 H BUN 41 H Creatinine 1.70 H Est GFR ( Amer) 35 L Est GFR (Non-Af Amer) 29 L Glucose 148 H Creatine Kinase 28 L - Diagnostic Test Radiology reviewed: Image reviewed, Reports reviewed - EKG Interpretation by Me EKG shows normal: Sinus rhythm, [place], Intervals, QRS Complexes, ST-T Waves Rate: Tachycardia Rhythm: A.Fib When compared to previous EKG there are: No significant change Critical Care Note - Critical Care Note Total time excluding time spent on procedures (mins): 34 Comments: 34 minutes of critical care time spent in direct contact evaluating and reevaluating the patient, treating symptoms, reviewing labs and studies and speaking with family and consultants excluding any procedures Discharge - Discharge Clinical Impression: Atrial fibrillation with rapid ventricular response Condition: Stable Disposition: ADMITTED INPATIENT Admitting Provider: Hospitalist Unit Admitted: [facility]
[2016-10-25 16:41] LABS: ABSOLUTE BASOPHILS # (AUTO) 0.1 10^3/uL (0.0-0.2); ABSOLUTE EOSINOPHILS # (AUTO) 0.2 10^3/uL (0.0-0.6); ABSOLUTE LYMPHOCYTES (AUTO) 1.6 10^3/uL (0.5-4.7); ABSOLUTE MONOCYTES (AUTO) 1.2 10^3/uL (0.1-1.4); ABSOLUTE NEUT (AUTO) 7.2 10^3/uL (1.7-8.2); BASOPHILS % (AUTO) 0.9 % (0-2); HEMATOCRIT 35.7 % (36.0-47.0); HEMOGLOBIN 11.6 g/dL (12.0-15.5); HGB HCT DIFFERENCE -0.9; LYMPHOCYTES % (AUTO) 15.5 % (13-45); MEAN CORPUSCULAR HEMOGLOBIN 28.9 pg (27.0-33.4); MEAN CORPUSCULAR HGB CONC 32.6 g/dL (32.0-36.0); MEAN CORPUSCULAR VOLUME 89 fl (80-97); MONOCYTES % (AUTO) 11.3 % (3-13); RED BLOOD COUNT 4.03 10^6/uL (3.72-5.28); RED CELL DISTRIBUTION WIDTH 14.7 % (11.5-14.0); SEGMENTED NEUTROPHILS % (AUTO) 70.3 % (42-78); WHITE BLOOD COUNT 10.2 10^3/uL (4.0-10.5)
[2016-10-25 16:54] LABS: ALANINE AMINOTRANSFERASE 28 U/L (9-52); ALBUMIN 3.7 g/dL (3.5-5.0); ALKALINE PHOSPHATASE 95 U/L (38-126); ANION GAP 11 (5-19); ASPARTATE AMINO TRANSFERASE 27 U/L (14-36); BILIRUBIN,DIRECT 0.4 mg/dL (0.0-0.4); BILIRUBIN,TOTAL 1.3 mg/dL (0.2-1.3); BLOOD UREA NITROGEN 41 mg/dL (7-20); CALCIUM 9.2 mg/dL (8.4-10.2); CARBON DIOXIDE 36 mmol/L (22-30); CHLORIDE 93 mmol/L (98-107); CREATINE KINASE 28 U/L (30-135); GLUCOSE 148 mg/dL (75-110); POTASSIUM 4.4 mmol/L (3.6-5.0); SODIUM 139.7 mmol/L (137-145); TOTAL PROTEIN 6.7 g/dL (6.3-8.2)
[2016-10-25 17:06] LABS: CREATINE KINASE MB 0.63 ng/mL (<4.55)
[2016-10-25 17:07] LABS: TROPONIN I < 0.012 ng/mL
--- NOTE | 2016-10-25 17:13 | RADIOLOGY REPORT (SQ) ---
EXAM DESCRIPTION: CHEST SINGLE VIEW COMPLETED DATE/TIME: 10/25/2016 4:58 pm REASON FOR STUDY: chest pain COMPARISON: 10/13/2016 EXAM PARAMETERS: NUMBER OF VIEWS: One view. TECHNIQUE: Single frontal radiographic view of the chest acquired. RADIATION DOSE: NA LIMITATIONS: Patient has made a shallow inspiration. FINDINGS: LUNGS AND PLEURA: The previously described bilateral small pleural effusions and bibasilar airspace disease is again identified and appears essentially unchanged. MEDIASTINUM AND HILAR STRUCTURES: No masses. Contour normal. HEART AND VASCULAR STRUCTURES: The configuration of the heart and mediastinal structures is unchanged . BONES: No acute findings. HARDWARE: None in the chest. OTHER: No other significant finding. IMPRESSION: No significant interval change. Bibasilar densities as noted above. Other findings as noted above TECHNICAL DOCUMENTATION: JOB ID: [id number]
[2016-10-25] MEDS ORDERED: ONDANSETRON 4 MG TAB.RAPDIS PO PRN (17:34)
[2016-10-25] MEDS ORDERED: ACETAMINOPHEN 325 MG TABLET PO PRN (17:34)
[2016-10-25] MEDS ORDERED: ONDANSETRON HCL INJ/PF 4 MG/2 ML SDV IV PRN (17:34)
[2016-10-25] MEDS ORDERED: ALBUTEROL SULFATE 0.083% NEB 2.5 MG/3 ML AMPUL NEB PRN (17:34)
[2016-10-25] MEDS ORDERED: DEXTROSE 40% GEL 15 GM TUBE PO PRN ×2 (17:42)
[2016-10-25] MEDS ORDERED: DEXTROSE 50%-WATER 25 GM/50 ML DISP.SYRIN IV PRN ×2 (17:42)
[2016-10-25] MEDS ORDERED: GLUCAGON,HUMAN RECOMB 1 MG INJ IM PRN (17:42)
--- NOTE | 2016-10-25 18:00 | PDOC H&P ---
History of Present Illness Admission Date/PCP: 10/25/16 17:26 Patient complains of: Atrial fibrillation History of Present Illness: FLAQUITO DAO is a 81 year old female who was discharged 2 weeks ago from the hospital after having an episode of age fibrillation with rapid ventricular rate who presents with the same. The patient was at her account planner's office today she was noted to have a heart rate of 140. The patient reported she felt short of breath but did not have any chest pain associated with his heart rate. Patient presented to emergency room and was placed on diltiazem drip with control of her heart rate. The patient when she was discharged 2 weeks ago was instructed to take diltiazem 120 mg every 12 however she reports she has been taking metoprolol 100 mg twice daily. The patient saw a new account planner today. She has had worsening shortness of breath and some mild orthopnea and PND. She has lower extremity edema and has been on Lasix. She does have a history of congestive heart failure. She also has obstructive sleep apnea reports that she frequently does not use her CPAP. Patient denies any cough. Denies any fevers or chills. She has significant dyspnea on exertion, but denies any chest pain on exertion. Past Medical History Cardiac Medical History: Reports: Atrial Fibrillation, Congestive Heart Failure - Diastolic dysfunction, Hyperlipidema, Hypertension Denies: DVT, Myocardial Infarction, Pulmonary Embolism Pulmonary Medical History: Reports: Asthma - medicated PRN/ NO MEDS APPROX 1YR, Sleep Apnea - Questionable; repeat sleep study in near future, per patient EENT Medical History: Reports: Cataracts Neurological Medical History: Reports: None Denies: Seizures Endocrine Medical History: Reports: Diabetes Mellitus Type 2 Denies: Diabetes Mellitus Type 1, Hyperthyroidism, Hypothyroidism Renal/ Medical History: Reports: Chronic Kidney Disease Malignancy Medical History: Reports: None GI Medical History: Denies: Cirrhosis, Gastroesophageal Reflux Disease, Hepatitis, Hiatal Hernia Musculoskeltal Medical History: Reports: Arthritis Skin Medical History: Reports: None Psychiatric Medical History: Denies: Depression Traumatic Medical History: Reports: None Hematology: Denies: Anemia, Sickle Cell Disease Infectious Medical History: Reports: None Past Surgical History Past Surgical History: Reports: Cholecystectomy, Hysterectomy Denies: Amputation, Mastectomy, Pacemaker Social History Information Source: Patient Smoking Status: Never Smoker Frequency of Alcohol Use: None Hx Recreational Drug Use: No Drugs: None Hx Prescription Drug Abuse: No - Advance Directive Resuscitation Status: Do Not Resuscitate Family History Family History: DM Family History: Mother lived to be 91 and had diabetes mellitus. Father at age 63 and had coronary artery disease. Parental Family History Reviewed: Yes Children Family History Reviewed: No Sibling(s) Family History Reviewed.: No Medication/Allergy Allergies/Adverse Reactions: Iodinated Contrast- Oral and IV Dye Allergy (Severe, Verified 10/25/16 17:43) ivp dye Allergy (Severe, Uncoded 10/25/16 17:43) difficulty breathing, throat swelling,hives Review of Systems Constitutional: ABSENT: chills, fever(s), headache(s), weight gain, weight loss Eyes: ABSENT: visual disturbances Ears: ABSENT: hearing changes Cardiovascular: PRESENT: dyspnea on exertion, edema, orthropnea, palpitations. ABSENT: chest pain Respiratory: PRESENT: dyspnea. ABSENT: cough, hemoptysis, sputum Gastrointestinal: ABSENT: abdominal pain, constipation, diarrhea, hematemesis, hematochezia, nausea, vomiting Genitourinary: ABSENT: dysuria, hematuria Musculoskeletal: ABSENT: joint swelling Integumentary: ABSENT: rash, wounds Neurological: ABSENT: abnormal gait, abnormal speech, confusion, dizziness, focal weakness, syncope Psychiatric: ABSENT: anxiety, depression Endocrine: ABSENT: cold intolerance, heat intolerance, polydipsia, polyuria Hematologic/Lymphatic: ABSENT: easy bleeding, easy bruising Physical Exam Vital Signs: Temp Pulse Resp BP Pulse Ox 98.3 F 17 108/75 100 10/25/16 17:00 10/25/16 17:01 10/25/16 17:01 10/25/16 17:01 General appearance: PRESENT: no acute distress, morbidly obese Head exam: PRESENT: atraumatic, normocephalic Eye exam: PRESENT: conjunctiva pink, EOMI, PERRLA. ABSENT: scleral icterus Ear exam: PRESENT: normal external ear exam Mouth exam: PRESENT: moist, tongue midline Neck exam: ABSENT: carotid bruit, JVD, lymphadenopathy, thyromegaly Respiratory exam: PRESENT: clear to auscultation kalyan. ABSENT: rales, rhonchi, wheezes Cardiovascular exam: PRESENT: irregular rhythm. ABSENT: diastolic murmur, rubs , systolic murmur Pulses: PRESENT: normal dorsalis pedis pul Vascular exam: PRESENT: normal capillary refill GI/Abdominal exam: PRESENT: normal bowel sounds, soft. ABSENT: distended, guarding, mass, organolmegaly, rebound, tenderness Rectal exam: PRESENT: deferred Extremities exam: PRESENT: pedal edema, +2 edema. ABSENT: calf tenderness, clubbing Neurological exam: PRESENT: alert, awake, oriented to person, oriented to place , oriented to time, oriented to situation, CN II-XII grossly intact. ABSENT: motor sensory deficit Psychiatric exam: PRESENT: appropriate affect Skin exam: PRESENT: dry, intact, warm. ABSENT: cyanosis, rash Results Impressions: Chest X-Ray 10/25/16 16:03 IMPRESSION: No significant interval change. Bibasilar densities as noted above. Other findings as noted above Assessment & Plan - Diagnosis (1) Atrial fibrillation with rapid ventricular response Is this a current diagnosis for this admission?: Yes Plan: Patient has a history of atrial fibrillation. When she was here 2 weeks ago she was sent home on diltiazem but reports she has been taking metoprolol 100 mg twice daily. We will continue with the diltiazem drip and monitor overnight. We will also check serial troponins although I doubt that this is related to an acute cardiac event. She already is on Eliquis and we will continue with that. (2) Hypertension Is this a current diagnosis for this admission?: Yes Plan: Continue with the diltiazem and Lasix. (3) Congestive heart failure Qualifiers: Congestive heart failure type: diastolic Congestive heart failure chronicity: acute on chronic Qualified Code(s): I50.33 - Acute on chronic diastolic (congestive) heart failure Is this a current diagnosis for this admission?: Yes Plan: Patient has chronic diastolic heart failure. Her last ejection fraction was 60% . She is on Lasix and we will continue with her home dose. (4) Obstructive sleep apnea Is this a current diagnosis for this admission?: Yes Plan: Patient reports noncompliance with her CPAP. She is encouraged to wear it every night and we will continue with her CPAP. (5) Asthma Qualifiers: Asthma severity: unspecified severity Asthma complication type: uncomplicated Qualified Code(s): J45.909 - Unspecified asthma, uncomplicated Is this a current diagnosis for this admission?: Yes Plan: We will give nebulizers as needed (6) CKD (chronic kidney disease), stage III Is this a current diagnosis for this admission?: Yes Plan: She has stage III chronic renal failure. She does have some lower extremity edema and has some orthopnea and dyspnea on exertion but this may be heart rate related. We will continue with the Lasix at the current dose. (7) HLD (hyperlipidemia) Qualifiers: Hyperlipidemia type: unspecified Qualified Code(s): E78.5 - Hyperlipidemia , unspecified Is this a current diagnosis for this admission?: Yes Plan: Continue with Lipitor. (8) DNR (do not resuscitate) Is this a current diagnosis for this admission?: Yes Plan: CODE STATUS was discussed with the patient and she requested to be a DO NOT RESUSCITATE. - Time Time Spent: 50 to 70 Minutes - Inpatient Certification Medical Necessity: Need Close Monitoring Due to Risk of Patient Decompensation
[2016-10-25] MEDS ORDERED: ATORVASTATIN CALCIUM 10 MG TABLET PO ONE (19:00)
--- NOTE | 2016-10-25 19:59 | EKG REPORT ---
SEVERITY:- ABNORMAL ECG - ATRIAL FIBRILLATION LATERAL INFARCT, AGE INDETERMINATE CONSIDER ANTEROSEPTAL INFARCT ABNORMAL T, CONSIDER ISCHEMIA, INFERIOR LEADS PROLONGED QT INTERVAL : Confirmed by: Bacilio Hu 25-Oct-2016 19:58:58
[2016-10-25] MEDS: APIXABAN 2.5 MG TABLET PO SCH (21:58)
[2016-10-25] MEDS: FAMOTIDINE 20 MG TABLET PO SCH (21:58)
[2016-10-25 23:18] LABS: CREATINE KINASE MB 0.56 ng/mL (<4.55); TROPONIN I 0.016 ng/mL
[2016-10-26 04:45] LABS: HEMATOCRIT 31.1 % (36.0-47.0); HEMOGLOBIN 10.4 g/dL (12.0-15.5); HGB HCT DIFFERENCE 0.1; MEAN CORPUSCULAR HEMOGLOBIN 28.8 pg (27.0-33.4); MEAN CORPUSCULAR HGB CONC 33.4 g/dL (32.0-36.0); MEAN CORPUSCULAR VOLUME 86 fl (80-97); RED BLOOD COUNT 3.61 10^6/uL (3.72-5.28); RED CELL DISTRIBUTION WIDTH 14.6 % (11.5-14.0); WHITE BLOOD COUNT 8.2 10^3/uL (4.0-10.5)
[2016-10-26 05:03] LABS: BLOOD UREA NITROGEN 41 mg/dL (7-20); CHLORIDE 94 mmol/L (98-107); CREATINE KINASE 34 U/L (30-135); CREATININE RESULT 1.71 mg/dL (0.52-1.25); GLUCOSE 149 mg/dL (75-110); MAGNESIUM 1.8 mg/dL (1.6-2.3); POTASSIUM 3.8 mmol/L (3.6-5.0)
[2016-10-26 05:10] LABS: ANION GAP 8 (5-19)
[2016-10-26 05:13] LABS: CREATINE KINASE MB 0.69 ng/mL (<4.55); TROPONIN I 0.015 ng/mL
[2016-10-26 05:14] LABS: CARBON DIOXIDE 39 mmol/L (22-30)
[2016-10-26] MEDS: INSULIN LISPRO 100 UNIT/ML 3 ML VIAL SUBCUT PRN ×3 (08:32→17:26)
[2016-10-26] MEDS: FAMOTIDINE 20 MG TABLET PO SCH ×2 (09:47→21:24)
[2016-10-26] MEDS: INSULIN GLARGINE,HUM.REC.ANLOG 300 UNIT/3 ML INSULN.PEN SUBCUT SCH (09:48)
[2016-10-26] MEDS ORDERED: FUROSEMIDE 40 MG TABLET PO SCH (10:00)
[2016-10-26] MEDS: APIXABAN 2.5 MG TABLET PO SCH ×2 (10:05→17:31)
--- NOTE | 2016-10-26 10:32 | PDOC PROGRESS REPORT ---
Subjective Progress Note for:: 10/26/16 Subjective:: Patient denies CP. No SOB at rest. Occasional PND. + FRIEND. No increasing edema. No chills nor fever. Pt decreased her metoprolol dose few weeks ago as instructed by her primary. Palpitation restarted. Physical Exam Vital Signs: Temp Pulse Resp BP Pulse Ox 97.8 F 111 H 20 134/73 H 100 10/26/16 07:15 10/26/16 07:30 10/26/16 07:15 10/26/16 08:02 10/26/16 07:15 Intake & Output 10/25/16 10/26/16 10/27/16 06:59 06:59 06:59 Intake Total 560 Balance 560 General appearance: PRESENT: no acute distress, morbidly obese Head exam: PRESENT: normocephalic Eye exam: PRESENT: EOMI Mouth exam: PRESENT: moist, neck supple Neck exam: ABSENT: JVD Respiratory exam: PRESENT: crackles - lower lung field, unlabored. ABSENT: wheezes Cardiovascular exam: PRESENT: irregular rhythm, tachycardia GI/Abdominal exam: PRESENT: normal bowel sounds, soft. ABSENT: distended - obese Extremities exam: PRESENT: pedal edema Neurological exam: PRESENT: alert, awake, oriented to situation Skin exam: PRESENT: dry, warm. ABSENT: cyanosis Results Laboratory Results: 10/26/16 04:30 10/26/16 04:30 10/26/16 10/26/16 04:30 04:30 WBC 8.2 RBC 3.61 L Hgb 10.4 L Hct 31.1 L MCV 86 MCH 28.8 MCHC 33.4 RDW 14.6 H Plt Count 182 Sodium 141.0 Potassium 3.8 Chloride 94 L Carbon Dioxide 39 H Anion Gap 8 BUN 41 H Creatinine 1.71 H Est GFR ( Amer) 35 L Est GFR (Non-Af Amer) 29 L Glucose 149 H Calcium 9.0 Magnesium 1.8 10/25/16 10/25/16 10/26/16 22:28 22:28 04:30 Creatine Kinase 30 34 CK-MB (CK-2) 0.56 Troponin I 0.016 10/26/16 04:30 Creatine Kinase CK-MB (CK-2) 0.69 Troponin I 0.015 Impressions: Chest X-Ray 10/25/16 16:03 IMPRESSION: No significant interval change. Bibasilar densities as noted above. Other findings as noted above Assessment & Plan - Diagnosis (1) Atrial fibrillation with rapid ventricular response Is this a current diagnosis for this admission?: Yes (2) Congestive heart failure Qualifiers: Congestive heart failure type: diastolic Congestive heart failure chronicity: acute on chronic Qualified Code(s): I50.33 - Acute on chronic diastolic (congestive) heart failure Is this a current diagnosis for this admission?: Yes (3) Anemia, chronic disease Is this a current diagnosis for this admission?: Yes (4) Hypertension Qualifiers: Hypertension type: essential hypertension Qualified Code(s): I10 - Essential (primary) hypertension Is this a current diagnosis for this admission?: Yes (5) Obstructive sleep apnea Is this a current diagnosis for this admission?: Yes (6) Asthma Qualifiers: Asthma severity: unspecified severity Asthma complication type: uncomplicated Qualified Code(s): J45.909 - Unspecified asthma, uncomplicated Is this a current diagnosis for this admission?: Yes (7) CKD (chronic kidney disease), stage III Is this a current diagnosis for this admission?: Yes (8) Diabetes mellitus type 1 Qualifiers: Diabetes mellitus complication status: with kidney complications Diabetes mellitus complication detail: with chronic kidney disease Chronic kidney disease stage: stage 3 (moderate) Qualified Code(s): E10.22 - Type 1 diabetes mellitus with diabetic chronic kidney disease Is this a current diagnosis for this admission?: Yes (9) HLD (hyperlipidemia) Qualifiers: Hyperlipidemia type: unspecified Qualified Code(s): E78.5 - Hyperlipidemia , unspecified Is this a current diagnosis for this admission?: Yes - Time Time Spent with patient: 25-34 minutes - Plan Summary Plan Summary: Continue cardizem drip. Begin oral cardizem and metoprolol. Begin IV lasix and hold PO lasix. Cont. supportive care.
[2016-10-26 11:16] LABS: CREATINE KINASE MB 0.63 ng/mL (<4.55)
[2016-10-26 11:27] LABS: TROPONIN I < 0.012 ng/mL
[2016-10-26] MEDS: METOPROLOL TARTRATE 25 MG TABLET PO SCH ×3 (11:38→23:36)
[2016-10-26] MEDS: DILTIAZEM HCL 60 MG TABLET PO SCH ×3 (11:39→23:36)
[2016-10-26] MEDS: ATORVASTATIN CALCIUM 10 MG TABLET PO SCH (21:24)
[2016-10-26] MEDS: FUROSEMIDE INJ/PF 40 MG/4 ML SDV IV SCH (22:55)
[2016-10-27] MEDS: DILTIAZEM HCL 60 MG TABLET PO SCH (05:40)
[2016-10-27] MEDS: METOPROLOL TARTRATE 25 MG TABLET PO SCH (05:41)
[2016-10-27] MEDS: INSULIN LISPRO 100 UNIT/ML 3 ML VIAL SUBCUT PRN ×4 (07:46→23:19)
[2016-10-27] MEDS: INSULIN GLARGINE,HUM.REC.ANLOG 300 UNIT/3 ML INSULN.PEN SUBCUT SCH (09:04)
[2016-10-27] MEDS: FAMOTIDINE 20 MG TABLET PO SCH ×2 (09:05→22:45)
[2016-10-27] MEDS: APIXABAN 2.5 MG TABLET PO SCH ×2 (09:05→17:26)
[2016-10-27] MEDS: FUROSEMIDE INJ/PF 40 MG/4 ML SDV IV SCH (09:07)
[2016-10-27] MEDS ORDERED: DILTIAZEM HCL 120 MG CAP.SR.24H PO ONE (11:00)
[2016-10-27] MEDS ORDERED: METOPROLOL SUCCINATE 50 MG TAB.SR.24H PO ONE (11:00)
--- NOTE | 2016-10-27 14:57 | PDOC PROGRESS REPORT ---
Subjective Progress Note for:: 10/27/16 Subjective:: Patient is feeling better this morning. Shortness of breath is better. Heart rate is better controlled as well. No chest pain PND nor orthopnea. Lower extremity edema is less. No dizziness or lightheadedness. Physical Exam Vital Signs: Temp Pulse Resp BP Pulse Ox 98.6 F 75 16 112/70 91 L 10/27/16 11:50 10/27/16 13:19 10/27/16 13:19 10/27/16 11:50 10/27/16 13:19 Intake & Output 10/26/16 10/27/16 10/28/16 06:59 06:59 06:59 Intake Total 560 874 600 Output Total 0 300 Balance 560 874 300 Weight 140.568 kg General appearance: PRESENT: no acute distress, cooperative, morbidly obese Head exam: PRESENT: normocephalic Eye exam: PRESENT: EOMI Mouth exam: PRESENT: moist, neck supple Neck exam: ABSENT: JVD Respiratory exam: PRESENT: clear to auscultation kalyan - Anteriorly, decreased breath sounds - Lower lung valentine Cardiovascular exam: PRESENT: irregular rhythm, +S1, +S2. ABSENT: gallop GI/Abdominal exam: PRESENT: soft. ABSENT: distended - Obese, tenderness Extremities exam: PRESENT: +1 edema - Improved Neurological exam: PRESENT: alert, awake, oriented to situation Skin exam: PRESENT: dry, warm. ABSENT: cyanosis Results Laboratory Results: 10/26/16 04:30 10/26/16 04:30 10/25/16 10/25/16 10/26/16 22:28 22:28 04:30 Creatine Kinase 30 34 CK-MB (CK-2) 0.56 Troponin I 0.016 10/26/16 10/26/16 10/26/16 04:30 10:23 10:23 Creatine Kinase 34 CK-MB (CK-2) 0.69 0.63 Troponin I 0.015 < 0.012 Impressions: Chest X-Ray 10/25/16 16:03 IMPRESSION: No significant interval change. Bibasilar densities as noted above. Other findings as noted above Assessment & Plan - Diagnosis (1) Atrial fibrillation with rapid ventricular response Is this a current diagnosis for this admission?: Yes (2) Congestive heart failure Qualifiers: Congestive heart failure type: diastolic Congestive heart failure chronicity: acute on chronic Qualified Code(s): I50.33 - Acute on chronic diastolic (congestive) heart failure Is this a current diagnosis for this admission?: Yes (3) Anemia, chronic disease Is this a current diagnosis for this admission?: Yes (4) Hypertension Qualifiers: Hypertension type: essential hypertension Qualified Code(s): I10 - Essential (primary) hypertension Is this a current diagnosis for this admission?: Yes (5) Obstructive sleep apnea Is this a current diagnosis for this admission?: Yes (6) Asthma Qualifiers: Asthma severity: unspecified severity Asthma complication type: uncomplicated Qualified Code(s): J45.909 - Unspecified asthma, uncomplicated Is this a current diagnosis for this admission?: Yes (7) CKD (chronic kidney disease), stage III Is this a current diagnosis for this admission?: Yes (8) Diabetes mellitus type 1 Qualifiers: Diabetes mellitus complication status: with kidney complications Diabetes mellitus complication detail: with chronic kidney disease Chronic kidney disease stage: stage 3 (moderate) Qualified Code(s): E10.22 - Type 1 diabetes mellitus with diabetic chronic kidney disease Is this a current diagnosis for this admission?: Yes (9) HLD (hyperlipidemia) Qualifiers: Hyperlipidemia type: unspecified Qualified Code(s): E78.5 - Hyperlipidemia , unspecified Is this a current diagnosis for this admission?: Yes - Time Time Spent with patient: 25-34 minutes - Plan Summary Plan Summary: Continue diuretics. We will switch to oral Lasix at 80 mg a day. In the meantime continue beta-toyin and calcium channel toyin to control heart rate. Patient's seems to have better control at this time. We will recheck electrolytes in the morning. If patient continues to improve might be able to be discharged back home with home health.
[2016-10-27] MEDS: METOPROLOL SUCCINATE 50 MG TAB.SR.24H PO SCH (22:45)
[2016-10-27] MEDS: DILTIAZEM HCL 120 MG CAP.SR.24H PO SCH (22:45)
[2016-10-27] MEDS: ATORVASTATIN CALCIUM 10 MG TABLET PO SCH (22:46)
[2016-10-28 05:06] LABS: ANION GAP 7 (5-19); BLOOD UREA NITROGEN 35 mg/dL (7-20); CALCIUM 8.9 mg/dL (8.4-10.2); CARBON DIOXIDE 39 mmol/L (22-30); CHLORIDE 94 mmol/L (98-107); CREATININE RESULT 1.48 mg/dL (0.52-1.25); GLUCOSE 195 mg/dL (75-110); POTASSIUM 3.4 mmol/L (3.6-5.0)
[2016-10-28] MEDS ORDERED: POTASSIUM CHLORIDE 10 MEQ TABLET.SA PO ONE (08:45)
[2016-10-28] MEDS: FAMOTIDINE 20 MG TABLET PO SCH (09:15)
[2016-10-28] MEDS: INSULIN GLARGINE,HUM.REC.ANLOG 300 UNIT/3 ML INSULN.PEN SUBCUT SCH (09:15)
[2016-10-28] MEDS: METOPROLOL SUCCINATE 50 MG TAB.SR.24H PO SCH (09:15)
[2016-10-28] MEDS: DILTIAZEM HCL 120 MG CAP.SR.24H PO SCH (09:15)
[2016-10-28] MEDS: APIXABAN 2.5 MG TABLET PO SCH (09:15)
[2016-10-28] MEDS ORDERED: FUROSEMIDE 80 MG TABLET PO SCH (10:00)
[2016-10-28] MEDS ORDERED: METOPROLOL SUCCINATE 50 MG TAB.SR.24H PO ONE (10:30)
[2016-10-28] MEDS: INSULIN LISPRO 100 UNIT/ML 3 ML VIAL SUBCUT PRN (11:29)
--- NOTE | 2016-10-28 15:42 | PDOC DISCHARGE SUMMARY ---
General - Admit/Disc Date/PCP Admission Date/Primary Care Provider: 10/25/16 17:35 Discharge Date: 10/28/16 - Discharge Diagnosis (1) Atrial fibrillation with rapid ventricular response Is this a current diagnosis for this admission?: Yes (2) Congestive heart failure Is this a current diagnosis for this admission?: Yes (3) Anemia, chronic disease Is this a current diagnosis for this admission?: Yes (4) Hypertension Is this a current diagnosis for this admission?: Yes (5) Obstructive sleep apnea Is this a current diagnosis for this admission?: Yes (6) Asthma Is this a current diagnosis for this admission?: Yes (7) CKD (chronic kidney disease), stage III Is this a current diagnosis for this admission?: Yes (8) Diabetes mellitus type 1 Is this a current diagnosis for this admission?: Yes (9) HLD (hyperlipidemia) Is this a current diagnosis for this admission?: Yes - Additional Information Resuscitation Status: Do Not Resuscitate Discharge Diet: Cardiac, Diabetic Discharge Activity: Activity As Tolerated, Balance Activity w/Rest, Weigh Daily Home Medications: Apixaban [Eliquis 2.5 mg Tablet] 2.5 mg PO Q12 10/25/16 Ergocalciferol (Vitamin D2) [Drisdol 50,000 unit (1.25MG) Capsule] 50,000 unit PO TU@1000 10/25/16 Glipizide [Glipizide ER] 2.5 mg PO DAILY 10/25/16 Nystatin [Mycostatin Ointment 15 gm] 1 applic TP .DAILY AFTER BATH 10/25/16 Atorvastatin Calcium [Lipitor 10 mg Tablet] 10 mg PO QHS #30 tablet 10/28/16 Diltiazem HCl [Cardizem Cd 120 mg Capsule] 120 mg PO Q12 #60 cap.sr.24h Furosemide [Lasix 80 mg Tablet] 80 mg PO DAILY #30 tablet 10/28/16 Insulin Glargine,Hum.rec.anlog [Lantus Insulin 100 Unit/mL] 20 unit SUBCUT DAILY insuln.pen 10/28/16 Metoprolol Succinate [Toprol Xl 50 mg Tab.sr] 100 mg PO Q12 #60 tab.sr.24h 10/28 Additional Information: Follow-up with Dr. Hu in the morning for event recorder. Return to the emergency room if symptoms recur or worsens. History of Present Illness Patient complains of: Palpitation and tachycardia History of Present Illness: FLAQUITO DAO is a 81 year old female who was discharged 2 weeks ago from the hospital after having an episode of age fibrillation with rapid ventricular rate who presents with the same. The patient was at her care taker's office today she was noted to have a heart rate of 140. The patient reported she felt short of breath but did not have any chest pain associated with his heart rate. Patient presented to emergency room and was placed on diltiazem drip with control of her heart rate. The patient when she was discharged 2 weeks ago was instructed to take diltiazem 120 mg every 12 however she reports she has been taking metoprolol 100 mg twice daily. The patient saw a new care taker today. She has had worsening shortness of breath and some mild orthopnea and PND. She has lower extremity edema and has been on Lasix. She does have a history of congestive heart failure. She also has obstructive sleep apnea reports that she frequently does not use her CPAP. Patient denies any cough. Denies any fevers or chills. She has significant dyspnea on exertion, but denies any chest pain on exertion. Hospital Course Hospital Course: The patient was admitted to [facility]. The patient was transitioned to oral Cardizem and beta-toyin was started. Patient reported that her heart rate became uncontrolled when her metoprolol dose was decreased. She reported however she had episodes of bradycardia before. Cardiac enzymes were obtained and were negative for myocardial infarction. Patient had symptoms of decompensated CHF probably related to rapid atrial fibrillation therefore diuretics was likewise started. Cardiology was consulted and Dr. Hu evaluated the patient. Recommended to increase the diuretics on discharge and likewise change Cardizem to long-acting twice a day as well as metoprolol to long-acting twice daily. Cardizem was therefore maintained and metoprolol titrated. Patient's heart rate eventually got better controlled. With diuretics the patient shortness of breath improved as well. Patient wanted to go home and continue treatment on an outpatient basis. She reports that her heart rate normally at home runs in the 100-110. Prior to discharge her heart rate improved in the 90s-100. Patient was cleared by cardiology to be discharged and advised patient to have an event recorder on an outpatient basis to monitor for possibility of sick sinus syndrome. Patient is agreeable with the plan. The rest of the hospital stays unremarkable. Physical Exam Vital Signs: Temp Pulse Resp BP Pulse Ox 98.1 F 98 20 122/66 100 10/28/16 15:26 10/28/16 15:26 10/28/16 15:26 10/28/16 15:26 10/28/16 15:26 Intake & Output 10/27/16 10/28/16 10/29/16 06:59 06:59 06:59 Intake Total 874 1840 Output Total 0 300 Balance 874 1540 Weight 140.568 kg General appearance: PRESENT: no acute distress, morbidly obese Head exam: PRESENT: normocephalic Eye exam: PRESENT: EOMI Mouth exam: PRESENT: moist, neck supple Neck exam: ABSENT: JVD Respiratory exam: PRESENT: clear to auscultation kalyan. ABSENT: rhonchi, wheezes Cardiovascular exam: PRESENT: irregular rhythm. ABSENT: gallop GI/Abdominal exam: PRESENT: hypoactive bowel sounds, soft. ABSENT: distended - Obese, tenderness Extremities exam: PRESENT: +1 edema Neurological exam: PRESENT: alert, awake, oriented to person, oriented to place , oriented to time, oriented to situation Skin exam: PRESENT: dry, warm. ABSENT: cyanosis Results Laboratory Results: 10/26/16 04:30 10/28/16 04:04 10/28/16 04:04 Sodium 140.0 Potassium 3.4 L Chloride 94 L Carbon Dioxide 39 H Anion Gap 7 BUN 35 H Creatinine 1.48 H Est GFR ( Amer) 41 L Est GFR (Non-Af Amer) 34 L Glucose 195 H Calcium 8.9 10/25/16 10/25/16 10/26/16 22:28 22:28 04:30 Creatine Kinase 30 34 CK-MB (CK-2) 0.56 Troponin I 0.016 10/26/16 10/26/16 10/26/16 04:30 10:23 10:23 Creatine Kinase 34 CK-MB (CK-2) 0.69 0.63 Troponin I 0.015 < 0.012 Impressions: Chest X-Ray 10/25/16 16:03 IMPRESSION: No significant interval change. Bibasilar densities as noted above. Other findings as noted above Qualifiers PATEINT BEING DISCHARGED WITH ANY OF THE FOLLOWING DIAGNOSIS?: Heart Failure HF Pt being discharged on ACEI for LVEF less than 40%?: No Reason(s) for not prescribing ACEI:: Not indicated - Normal ejection fraction HF Pt being discharged on ARBS for LVEF less than 40%?: No Reason(s) for not prescribing ARBS:: Not indicated - Normal ejection fraction HF Pt with Afib discharged with Warfarin?: No Reason(s) for not prescribing Warfarin:: Not indicated - Patient already on therapeutic anticoagulation with apixaban HF Pt discharged on evidence-based Beta Toyin:: Yes Plan Discharge Plan: Follow-up with primary care physician in 1 week. Follow-up with Dr. Hu in 24 hours for event recorder. Time Spent: Less than 30 Minutes
[2016-10-28 16:52] VITALS: BP 117/58
--- NOTE | 2016-10-28 20:34 | PDOC CONSULTATION ---
Consultation Consult Date: 10/26/16 Attending physician:: COOKIE HYDE Consult reason:: Atrial fibrillation with rapid ventricular response History of Present Illness Admission Date/PCP: 10/25/16 17:35 Patient complains of: Shortness of breath and pedal edema History of Present Illness: FLAQUITO DAO is a 81 year old female who was discharged 2 weeks ago from the hospital after having an episode of age fibrillation with rapid ventricular rate who presents with the same. The patient was at her paint technician's office today she was noted to have a heart rate of 140. The patient reported she felt short of breath but did not have any chest pain associated with his heart rate. Patient presented to emergency room and was placed on diltiazem drip with control of her heart rate. The patient when she was discharged 2 weeks ago was instructed to take diltiazem 120 mg every 12 however she reports she has been taking metoprolol 100 mg twice daily. The patient saw a new paint technician today. She has had worsening shortness of breath and some mild orthopnea and PND. She has lower extremity edema and has been on Lasix. She does have a history of congestive heart failure. She also has obstructive sleep apnea reports that she frequently does not use her CPAP. Patient denies any cough. Denies any fevers or chills. She has significant dyspnea on exertion, but denies any chest pain on exertion. I had a talk with patient's paint technician. He had referred patient for better control of heart rate. It seems on talking to the patient that she has not been taking Eliquis until recently which is about a week or 2. It is felt that patient will need to be admitted for better rate control. I was therefore consulted regarding this. Past Medical History Cardiac Medical History: Reports: Atrial Fibrillation, Congestive Heart Failure - Diastolic dysfunction, Hyperlipidema, Hypertension Denies: DVT, Myocardial Infarction, Pulmonary Embolism Pulmonary Medical History: Reports: Asthma - medicated PRN/ NO MEDS APPROX 1YR, Sleep Apnea - Questionable; repeat sleep study in near future, per patient EENT Medical History: Reports: Cataracts Neurological Medical History: Reports: None Denies: Seizures Endocrine Medical History: Reports: Diabetes Mellitus Type 2 Denies: Diabetes Mellitus Type 1, Hyperthyroidism, Hypothyroidism Renal/ Medical History: Reports: Chronic Kidney Disease Malignancy Medical History: Reports: None GI Medical History: Denies: Cirrhosis, Gastroesophageal Reflux Disease, Hepatitis, Hiatal Hernia Musculoskeltal Medical History: Reports: Arthritis Skin Medical History: Reports: None Psychiatric Medical History: Denies: Depression Traumatic Medical History: Reports: None Hematology: Denies: Anemia, Sickle Cell Disease Infectious Medical History: Reports: None Past Surgical History Past Surgical History: Reports: Cholecystectomy, Hysterectomy Denies: Amputation, Mastectomy, Pacemaker Social History Information Source: Patient Smoking Status: Never Smoker Frequency of Alcohol Use: None Hx Recreational Drug Use: No Drugs: None Hx Prescription Drug Abuse: No - Advance Directive Resuscitation Status: Do Not Resuscitate Surrogate healthcare decision maker:: Patient's son is the surrogate decision maker. Family History Family History: DM, Hypertension Parental Family History Reviewed: Yes Children Family History Reviewed: Yes Sibling(s) Family History Reviewed.: Yes Medication/Allergy Home Medications: Apixaban [Eliquis 2.5 mg Tablet] 2.5 mg PO Q12 10/25/16 Ergocalciferol (Vitamin D2) [Drisdol 50,000 unit (1.25MG) Capsule] 50,000 unit PO TU@1000 10/25/16 Glipizide [Glipizide ER] 2.5 mg PO DAILY 10/25/16 Nystatin [Mycostatin Ointment 15 gm] 1 applic TP .DAILY AFTER BATH 10/25/16 Atorvastatin Calcium [Lipitor 10 mg Tablet] 10 mg PO QHS #30 tablet 10/28/16 Diltiazem HCl [Cardizem Cd 120 mg Capsule] 120 mg PO Q12 #60 cap.sr.24h Furosemide [Lasix 80 mg Tablet] 80 mg PO DAILY #30 tablet 10/28/16 Insulin Glargine,Hum.rec.anlog [Lantus Insulin 100 Unit/mL] 20 unit SUBCUT DAILY insuln.pen 10/28/16 Metoprolol Succinate [Toprol Xl 50 mg Tab.sr] 100 mg PO Q12 #60 tab.sr.24h 10/28 Allergies/Adverse Reactions: Iodinated Contrast- Oral and IV Dye Allergy (Severe, Verified 10/25/16 17:43) ivp dye Allergy (Severe, Uncoded 10/25/16 17:43) difficulty breathing, throat swelling,hives Review of Systems Review of Systems: Please see history of present illness and past medical history as wall. Constitutional: No fever or chills reported. Head : No recent chronic headaches, recent head injury. Eyes: No recent eye pain, diplopia, redness, discharge, acute visual changes. Ears: No recent chronic ear pain, acute hearing loss, ear discharge. Oral cavity: No recent ulcerations, bleeding, oral cavity discomfort. Neck: No recent acute neck pain reported. Hematologic: No recent easy bruising or bleeding or hematologic malignancy reported. Lymphatic: No recent lymphatic malignancy, chronic lymphadenopathy reported yet Cardiovascular system review: See history of present illness. Positive for increasing dyspnea and pedal edema. Patient has noted some palpitations Respiratory system review: No recent chronic cough, hemoptysis, blood clots in the lungs reported. Mild Shortness of breath on exertion Gastrointestinal system review: Negative for any recent acute or chronic abdominal pain, hematemesis, melena, recent change in bowel habits. Genitourinary system review: No recent acute or chronic hematuria, flank pain, UTI etc. reported. Skin system review: Negative for any recent abnormal bruising, no rash, no pruritus reported. Neurologic: No prior history of strokes, mini strokes, seizure disorder. Psychologic: No history of major psychosis or major depression reported. Musculoskeletal: Minor aches and pains reported. No acute joint swelling reported. Endocrine: No recent polyuria, polydipsia, recent heat or cold intolerance. Physical Exam Vital Signs: Temp Pulse Resp BP Pulse Ox 98.4 F 78 20 107/68 100 10/26/16 19:31 10/26/16 19:31 10/26/16 19:31 10/26/16 19:31 10/26/16 19:31 Intake & Output 10/25/16 10/26/16 10/27/16 06:59 06:59 06:59 Intake Total 560 370 Output Total 0 Balance 560 370 Weight 140.568 kg Exam: GENERAL: well-nourished and in no acute distress. Alert and oriented x3 HEAD: Atraumatic, normocephalic. EYES: Pupils equal round and reactive to light, extraocular movements intact, sclera anicteric, conjunctiva are normal. ENT: TMs normal, nares patent, oropharynx clear without exudates. Moist mucous membranes. No oral ulcerations or bleeding gums noted NECK: supple without lymphadenopathy. Trachea is central. No cervical or axillary lymphadenopathy noted. Carotids are 2+, JVD 10-12 cm LUNGS: Respiration seems nonlabored, no significant accessory muscle action noted. Breath sounds clear to auscultation bilaterally and equal noted. No wheezes rales or rhonchi noted. No significant dullness noted on percussion. CHEST: Palpation of the chest wall shows no significant chest wall tenderness. No other significant abnormalities noted. 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 ABDOMEN: Soft, no significant tenderness appreciated, normoactive bowel sounds. No guarding, no rebound. No rigidity noted . No masses appreciated. EXTREMITIES: Pedal pulses are 1-2+, no calf tenderness noted. No clubbing or cyanosis. 2+ + pedal edema noted NEUROLOGICAL: Focused neurological exam showed no significant neurologic deficit. Normal speech, no focal weakness appreciated. PSYCH: Normal mood, normal affect. Judgment and insight within normal limits. SKIN: No significant ecchymosis, rash, ulcerations or signs of pruritus noted. MUSCULOSKELETAL EXAM: No significant joint swelling noted. Results Laboratory Results: 10/26/16 04:30 10/26/16 04:30 10/26/16 10/26/16 04:30 04:30 WBC 8.2 RBC 3.61 L Hgb 10.4 L Hct 31.1 L MCV 86 MCH 28.8 MCHC 33.4 RDW 14.6 H Plt Count 182 Sodium 141.0 Potassium 3.8 Chloride 94 L Carbon Dioxide 39 H Anion Gap 8 BUN 41 H Creatinine 1.71 H Est GFR ( Amer) 35 L Est GFR (Non-Af Amer) 29 L Glucose 149 H Calcium 9.0 Magnesium 1.8 10/25/16 10/25/16 10/26/16 22:28 22:28 04:30 Creatine Kinase 30 34 CK-MB (CK-2) 0.56 Troponin I 0.016 10/26/16 10/26/16 10/26/16 04:30 10:23 10:23 Creatine Kinase 34 CK-MB (CK-2) 0.69 0.63 Troponin I 0.015 < 0.012 EKG Comments: Atrial fibrillation with rapid ventricular response. No acute ST-T wave changes noted Impressions: Chest X-Ray 10/25/16 16:03 IMPRESSION: No significant interval change. Bibasilar densities as noted above. Other findings as noted above Assessment & Plan - Diagnosis (1) Atrial fibrillation with rapid ventricular response Is this a current diagnosis for this admission?: Yes (2) Congestive heart failure Qualifiers: Congestive heart failure type: diastolic Congestive heart failure chronicity: acute on chronic Qualified Code(s): I50.33 - Acute on chronic diastolic (congestive) heart failure Is this a current diagnosis for this admission?: Yes (3) Hypertension Qualifiers: Hypertension type: essential hypertension Qualified Code(s): I10 - Essential (primary) hypertension Is this a current diagnosis for this admission?: Yes (4) Obstructive sleep apnea Is this a current diagnosis for this admission?: Yes (5) CKD (chronic kidney disease), stage III Is this a current diagnosis for this admission?: Yes (6) HLD (hyperlipidemia) Qualifiers: Hyperlipidemia type: unspecified Qualified Code(s): E78.5 - Hyperlipidemia , unspecified Is this a current diagnosis for this admission?: Yes (7) Diabetes type 2, controlled Qualifiers: Diabetes mellitus complication status: with unspecified complications - Notes Notes: Atrial fibrillation with rapid ventricular response: Patient to be treated with IV Cardizem and will switch to p.o. Cardizem. Continue home dose of beta- toyin. Continue Eliquis. Congestive heart failure: Most likely related to diastolic dysfunction. Previous echocardiogram will be reviewed. Recommend IV diuretics while in the hospital. Hypertension: Reasonably well controlled. Blood pressure goal in this patient is 135/85 or less. This was discussed with the patient. Currently blood pressure under reasonable control. Better medication for this patient are VIDAL inhibitor/ARB/beta toyin etc. discussed side effects of uncontrolled hypertension and also severe hypotension. Obstructive sleep apnea: Patient advised compliance with obstructive sleep apnea treatment and CPAP therapy. Currently stable. CKD: Methods to reduce progression of chronic kidney disease discussed. This would include good control of blood pressure, diabetes, treatment of sleep apnea if present, weight loss etc. Also discussed avoiding nephrotoxic drugs and medication, IVP dye etc. certain blood pressure medications such as VIDAL inhibitor, ARB can also reduce progression of chronic kidney disease Hyperlipidemia: LDL goal is less than 70. Recommend statin therapy at least intermediate or high dose, of high potency status. Periodic lipid panel and liver panel is indicated. Patient to report any significant muscle discomfort or other side effects. Diabetes: Recommend good control of blood sugar. However should avoid any hypoglycemia. Patient being expertly managed by primary care MMarilee - Time Time Spent: 30 to 50 Minutes - CODE STATUS : was discussed, patient remains DO NOT RESUSCITATE. Surrogate decision-maker unchanged. Multiple medical problems were addressed. More than 50% of the time spent coordinating care, discussing management plans with involved caregivers. Management plans discussed with involved personnels. Medical decision making was of moderate to high complexity, patient's has multiple comorbidities. Medications reviewed and adjusted accordingly: Yes
--- NOTE | 2016-10-28 20:42 | PDOC PROGRESS REPORT ---
Subjective Progress Note for:: 10/27/16 Subjective:: Patient doing much better. I adjusted the medication. Patient placed on metoprolol succinate 50 twice daily and Cardizem CD 120 p.o. twice daily. If patient is discharged in the morning, will recommend Lasix at 80 mg p.o. daily. Patient pedal edema improved. Physical Exam Vital Signs: Temp Pulse Resp BP Pulse Ox 97.6 F 74 16 100/59 L 91 L 10/27/16 15:07 10/27/16 15:13 10/27/16 15:13 10/27/16 15:07 10/27/16 15:13 Intake & Output 10/26/16 10/27/16 10/28/16 06:59 06:59 06:59 Intake Total 140 523 6858 Output Total 0 300 Balance 492 025 5199 Weight 140.568 kg Exam: GENERAL: well-nourished and in no acute distress. Alert and oriented x3 HEAD: Atraumatic, normocephalic. EYES: Pupils equal round and reactive to light, extraocular movements intact, sclera anicteric, conjunctiva are normal. ENT: TMs normal, nares patent, oropharynx clear without exudates. Moist mucous membranes. No oral ulcerations or bleeding gums noted NECK: supple without lymphadenopathy. Trachea is central. No cervical or axillary lymphadenopathy noted. Carotids are 2+, JVD 8-10 cm LUNGS: Respiration seems nonlabored, no significant accessory muscle action noted. Breath sounds clear to auscultation bilaterally and equal noted. No wheezes rales or rhonchi noted. No significant dullness noted on percussion. CHEST: Palpation of the chest wall shows no significant chest wall tenderness. No other significant abnormalities noted. 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 ABDOMEN: Soft, no significant tenderness appreciated, normoactive bowel sounds. No guarding, no rebound. No rigidity noted . No masses appreciated. EXTREMITIES: Pedal pulses are 1-2+, no calf tenderness noted. No clubbing or cyanosis. 2 + pedal edema noted NEUROLOGICAL: Focused neurological exam showed no significant neurologic deficit. Normal speech, no focal weakness appreciated. PSYCH: Normal mood, normal affect. Judgment and insight within normal limits. SKIN: No significant ecchymosis, rash, ulcerations or signs of pruritus noted. MUSCULOSKELETAL EXAM: No significant joint swelling noted. Results Laboratory Results: 10/26/16 04:30 10/26/16 04:30 10/25/16 10/25/16 10/26/16 22:28 22:28 04:30 Creatine Kinase 30 34 CK-MB (CK-2) 0.56 Troponin I 0.016 10/26/16 10/26/16 10/26/16 04:30 10:23 10:23 Creatine Kinase 34 CK-MB (CK-2) 0.69 0.63 Troponin I 0.015 < 0.012 EKG Comments: Telemetry strips reviewed. Shows atrial fibrillation with still somewhat rapid ventricular response. Impressions: Chest X-Ray 10/25/16 16:03 IMPRESSION: No significant interval change. Bibasilar densities as noted above. Other findings as noted above Assessment & Plan - Diagnosis (1) Atrial fibrillation with rapid ventricular response Is this a current diagnosis for this admission?: Yes (2) Congestive heart failure Qualifiers: Congestive heart failure type: diastolic Congestive heart failure chronicity: acute on chronic Qualified Code(s): I50.33 - Acute on chronic diastolic (congestive) heart failure Is this a current diagnosis for this admission?: Yes (3) Diabetes type 2, controlled Qualifiers: Diabetes mellitus complication status: with unspecified complications Diabetes mellitus assisted insulin use: unspecified superintendent terminal insulin use status Qualified Code(s): E11.8 - Type 2 diabetes mellitus with unspecified complications Is this a current diagnosis for this admission?: Yes (4) Dyspnea Qualifiers: Dyspnea type: shortness of breath Qualified Code(s): R06.02 - Shortness of breath Is this a current diagnosis for this admission?: Yes (5) Obstructive sleep apnea Is this a current diagnosis for this admission?: Yes (6) CKD (chronic kidney disease), stage III Is this a current diagnosis for this admission?: Yes (7) HLD (hyperlipidemia) Qualifiers: Hyperlipidemia type: unspecified Qualified Code(s): E78.5 - Hyperlipidemia , unspecified Is this a current diagnosis for this admission?: Yes - Notes Notes: Adjusted medications further. Placed patient on metoprolol succinate 50 twice daily and Cardizem CD 120 p.o. twice daily. Continue to follow closely. Continue IV diuretics while in the hospital. Atrial fibrillation with rapid ventricular response: Will switch to p.o. Cardizem. Continue home dose of beta-toyin. Continue Eliquis. Congestive heart failure: Most likely related to diastolic dysfunction. Previous echocardiogram reviewed. Recommend IV diuretics while in the hospital. Hypertension: Reasonably well controlled. Blood pressure goal in this patient is 135/85 or less. This was discussed with the patient. Currently blood pressure under reasonable control. Better medication for this patient are VIDAL inhibitor/ARB/beta toyin etc. discussed side effects of uncontrolled hypertension and also severe hypotension. Obstructive sleep apnea: Patient advised compliance with obstructive sleep apnea treatment and CPAP therapy. Patient may need a repeat sleep study. Currently stable. CKD: Methods to reduce progression of chronic kidney disease discussed. This would include good control of blood pressure, diabetes, treatment of sleep apnea if present, weight loss etc. Also discussed avoiding nephrotoxic drugs and medication, IVP dye etc. certain blood pressure medications such as VIDAL inhibitor, ARB can also reduce progression of chronic kidney disease Hyperlipidemia: LDL goal is less than 70. Recommend statin therapy at least intermediate or high dose, of high potency status. Periodic lipid panel and liver panel is indicated. Patient to report any significant muscle discomfort or other side effects. Diabetes: Recommend good control of blood sugar. However should avoid any hypoglycemia. Patient being expertly managed by primary care M.D. - Time Time with patient: Greater than 35 minutes - CODE STATUS : was discussed, patient remains DO NOT RESUSCITATE. Surrogate decision-maker unchanged. Multiple medical problems were addressed. More than 50% of the time spent coordinating care, discussing management plans with involved caregivers. Management plans discussed with involved personnels. Medical decision making was of moderate to high complexity, patient's has multiple comorbidities. Medications reviewed and adjusted accordingly: Yes
--- NOTE | 2016-10-28 20:43 | PDOC PROGRESS REPORT ---
Subjective Progress Note for:: 10/28/16 Subjective:: Patient seems to be doing better with gradual improvement. Pt is denying any chest arm or neck discomfort. Patient denying any PND, orthopnea. Patient denied any sustained palpitations, dizziness, syncope, near syncope. Patient denying any fever chills. Patient denying any other significant discomfort. Pedal edema much improved. Dyspnea improved Patient is maintaining chronic atrial fibrillation, heart rate still up and patient does want to go home. Review of systems: Rest review of systems negative. Medications: Medications have been reviewed. Physical Exam Vital Signs: Temp Pulse Resp BP Pulse Ox 97.6 F 53 L 19 117/58 L 100 10/28/16 16:00 10/28/16 16:00 10/28/16 16:00 10/28/16 16:00 10/28/16 16:00 Intake & Output 10/27/16 10/28/16 10/29/16 06:59 06:59 06:59 Intake Total 874 1840 Output Total 0 300 Balance 874 1540 Weight 140.568 kg Exam: GENERAL: well-nourished and in no acute distress. Alert and oriented x3 HEAD: Atraumatic, normocephalic. EYES: Pupils equal round and reactive to light, extraocular movements intact, sclera anicteric, conjunctiva are normal. ENT: TMs normal, nares patent, oropharynx clear without exudates. Moist mucous membranes. No oral ulcerations or bleeding gums noted NECK: supple without lymphadenopathy. Trachea is central. No cervical or axillary lymphadenopathy noted. Carotids are 2+, JVD 8 cm LUNGS: Respiration seems nonlabored, no significant accessory muscle action noted. Breath sounds clear to auscultation bilaterally and equal noted. No wheezes rales or rhonchi noted. No significant dullness noted on percussion. CHEST: Palpation of the chest wall shows no significant chest wall tenderness. No other significant abnormalities noted. 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 ABDOMEN: Soft, no significant tenderness appreciated, normoactive bowel sounds. No guarding, no rebound. No rigidity noted . No masses appreciated. EXTREMITIES: Pedal pulses are 1-2+, no calf tenderness noted. No clubbing or cyanosis. 1-2 + pedal edema noted NEUROLOGICAL: Focused neurological exam showed no significant neurologic deficit. Normal speech, no focal weakness appreciated. PSYCH: Normal mood, normal affect. Judgment and insight within normal limits. SKIN: No significant ecchymosis, rash, ulcerations or signs of pruritus noted. MUSCULOSKELETAL EXAM: No significant joint swelling noted. Results Laboratory Results: 10/26/16 04:30 10/28/16 04:04 10/28/16 04:04 Sodium 140.0 Potassium 3.4 L Chloride 94 L Carbon Dioxide 39 H Anion Gap 7 BUN 35 H Creatinine 1.48 H Est GFR ( Amer) 41 L Est GFR (Non-Af Amer) 34 L Glucose 195 H Calcium 8.9 10/25/16 10/25/16 10/26/16 22:28 22:28 04:30 Creatine Kinase 30 34 CK-MB (CK-2) 0.56 Troponin I 0.016 10/26/16 10/26/16 10/26/16 04:30 10:23 10:23 Creatine Kinase 34 CK-MB (CK-2) 0.69 0.63 Troponin I 0.015 < 0.012 Impressions: Chest X-Ray 10/25/16 16:03 IMPRESSION: No significant interval change. Bibasilar densities as noted above. Other findings as noted above Assessment & Plan - Diagnosis (1) Atrial fibrillation with rapid ventricular response Is this a current diagnosis for this admission?: Yes (2) Congestive heart failure Qualifiers: Congestive heart failure type: diastolic Congestive heart failure chronicity: acute on chronic Qualified Code(s): I50.33 - Acute on chronic diastolic (congestive) heart failure Is this a current diagnosis for this admission?: Yes (3) Diabetes type 2, controlled Qualifiers: Diabetes mellitus complication status: with unspecified complications Diabetes mellitus mcfp insulin use: unspecified mcfp insulin use status Qualified Code(s): E11.8 - Type 2 diabetes mellitus with unspecified complications Is this a current diagnosis for this admission?: Yes (4) Dyspnea Qualifiers: Dyspnea type: shortness of breath Qualified Code(s): R06.02 - Shortness of breath Is this a current diagnosis for this admission?: Yes (5) Obstructive sleep apnea Is this a current diagnosis for this admission?: Yes (6) CKD (chronic kidney disease), stage III Is this a current diagnosis for this admission?: Yes (7) HLD (hyperlipidemia) Qualifiers: Hyperlipidemia type: unspecified Qualified Code(s): E78.5 - Hyperlipidemia , unspecified Is this a current diagnosis for this admission?: Yes - Notes Notes: Atrial fibrillation with rapid ventricular response: Heart rate slightly under better control but still high. Patient wanting to be discharged. Recommend that patient be discharged on metoprolol succinate 100 p.o. twice daily and Cardizem CD 120 mg p.o. twice daily. Patient will benefit from close monitoring by a event monitor. This was discussed. Patient is supposed to see me in the office for initiation of this. Congestive heart failure: Patient to be discharged on increased dose of diuretics. This was discussed with hospitalist. Diabetes: This is under satisfactory control. Dyspnea: Stable patient encouraged to walk on a regular basis. Obstructive sleep apnea: Patient advised compliance with it. Chronic kidney disease: Currently stable. Dyslipidemia: Continue current management plans. - Time Time with patient: Greater than 35 minutes - CODE STATUS was discussed, patient remains full code. Surrogate decision-maker unchanged. Multiple medical problems were addressed. More than 50% of the time spent coordinating care, discussing management plans with involved caregivers. Management plans discussed with involved personnels. Medical decision making was of moderate to high complexity, patient's has multiple comorbidities. Medications reviewed and adjusted accordingly: Yes
[2016-10-28] MEDS ORDERED: METOPROLOL SUCCINATE 50 MG TAB.SR.24H PO SCH (22:00)
== END 2016-10-28 17:31 | disposition home health service (06) | DRG 308 ==
LOC: ER 15:50 → UNDOADMIN 17:26 → EH 17:26 → 3N 19:03
PROVIDERS: ADMIT Family Medicine; ATTEND Family Medicine
PROC: 5A09357 Assistance with Respiratory Ventilation, Less than 24 Consecutive Hours, Continuous Positive Airway Pressure (ICD-10-PCS; principal; 2016-10-25)
PROC: 3E0F73Z Introduction of Anti-inflammatory into Respiratory Tract, Via Natural or Artificial Opening (ICD-10-PCS; 2016-10-26)
DX: I48.91 Unspecified atrial fibrillation (principal); I50.33 Acute on chronic diastolic (congestive) heart failure; I13.0 Hypertensive heart and chronic kidney disease with heart failure and stage 1 through stage 4 chronic kidney disease, or unspecified chronic kidney disease; Z68.42 Body mass index [BMI] 45.0-49.9, adult; E11.22 Type 2 diabetes mellitus with diabetic chronic kidney disease; N18.3 Chronic kidney disease, stage 3 (moderate); D63.1 Anemia in chronic kidney disease; G47.33 Obstructive sleep apnea (adult) (pediatric); J45.909 Unspecified asthma, uncomplicated; E78.5 Hyperlipidemia, unspecified; M19.90 Unspecified osteoarthritis, unspecified site; E66.9 Obesity, unspecified; Z66 Do not resuscitate; Z91.041 Radiographic dye allergy status; Z98.49 Cataract extraction status, unspecified eye; Z79.899 Other long term (current) drug therapy; Z90.49 Acquired absence of other specified parts of digestive tract; Z90.710 Acquired absence of both cervix and uterus; Z83.3 Family history of diabetes mellitus; Z82.49 Family history of ischemic heart disease and other diseases of the circulatory system
CPT/HCPCS: 36415; 71010; 80048; 80053; 82550; 82553; 82962; 83735; 84443; 84484; 85025; 85027; 93005; 93010; 94660; 96374; 99285; J1815; J1940; J3490

== ENCOUNTER 2017-03-04 18:37 | Emergency (ER) | payer MEDICARE ==
[~2017-03-04 18:37] MED LIST: EPINEPHRINE INJ 1 MG/10 ML DISP.SYRIN ONE; SODIUM BICARBONATE 8.4% INJ 50 MEQ/50 ML DISP.SYRIN ONE
[2017-03-04] MEDS ORDERED: NORMAL SALINE 1000 ML 500 ML IV ONE (18:47)
--- NOTE | 2017-03-04 19:05 | ER Document Report ---
ED General - General Stated Complaint: BRADIACARDIA Time Seen by Provider: 03/04/17 18:46 Cannot obtain history due to: Unstable vital signs, Altered mental status Notes: Patient is a 81-year-old female who presents by EMS for bradycardia and altered mental status. She is unable to provide any meaningful history secondary to her lethargy. History is also quite abbreviated secondary to the critical nature of this patient on presentation. EMS states that the patient had apparently been lethargic for the past 3 days but the son contacted them as he took a home pulse oximeter reading and found her heart rate to be in the low 30s. TRAVEL OUTSIDE OF THE [place] IN LAST 30 DAYS: No - Related Data Allergies/Adverse Reactions: Iodinated Contrast- Oral and IV Dye Allergy (Severe, Verified 12/18/16 20:25) Past Medical History - General Information source: Emergency Med Personnel Cannot obtain history due to: Unstable vital signs, Altered mental status - Social History Smoking Status: Unknown if Ever Smoked Lives with: Family Family History: DM, Hypertension - Past Medical History Cardiac Medical History: Reports: Hx Atrial Fibrillation, Hx Congestive Heart Failure - Diastolic dysfunction, Hx Hypercholesterolemia, Hx Hypertension Denies: Hx DVT, Hx Heart Attack, Hx Pulmonary Embolism Pulmonary Medical History: Reports: Hx Asthma - medicated PRN/ NO MEDS APPROX 1YR, Hx Sleep Apnea - Questionable; repeat sleep study in near future, per patient Neurological Medical History: Denies: Hx Cerebrovascular Accident, Hx Seizures Endocrine Medical History: Reports: Hx Diabetes Mellitus Type 2. Denies: Hx Diabetes Mellitus Type 1, Hx Hyperthyroidism, Hx Hypothyroidism Renal/ Medical History: Denies: Hx Peritoneal Dialysis GI Medical History: Denies: Hx Cirrhosis, Hx Gastroesophageal Reflux Disease, Hx Hepatitis, Hx Hiatal Hernia, Hx Ulcer Musculoskeltal Medical History: Reports Hx Arthritis Psychiatric Medical History: Denies: Hx Depression Infectious Medical History: Denies: Hx Hepatitis Past Surgical History: Reports: Hx Cholecystectomy, Hx Hysterectomy. Denies: Hx Mastectomy, Hx Open Heart Surgery, Hx Pacemaker - Immunizations Hx Diphtheria, Pertussis, Tetanus Vaccination: No Review of Systems - Review of Systems -: Yes ROS unobtainable due to patient's medical condition Physical Exam - Vital signs Vitals: Pulse 34 L 03/04/17 18:37 Interpretation: Bradycardic Notes: PHYSICAL EXAMINATION: GENERAL: Lethargic, critically ill in appearance HEAD: Atraumatic, normocephalic. EYES: Pupils equal round and reactive to light, extraocular movements intact, sclera anicteric, conjunctiva are normal. ENT: nares patent, oropharynx clear without exudates. Dry mucous membranes. NECK: Normal range of motion, supple without lymphadenopathy LUNGS: Diminished breath sounds at the bases bilaterally. Moderate tachypnea. HEART: Regular severe bradycardia without murmurs ABDOMEN: Soft, nontender, normoactive bowel sounds. No guarding, no rebound. No masses appreciated. EXTREMITIES: Diffuse 1-2+ pitting edema in the bilateral lower extremities NEUROLOGICAL: No focal neurological deficits. Moves all extremities spontaneously and on command. PSYCH: Lethargic but alert and oriented SKIN: Warm, Dry, normal turgor, multiple areas of skin erosions and abrasions over the bilateral lower extremities Course - Re-evaluation Re-evalutation: 03/04/17 18:49 Patient presents with severe bradycardia but is normotensive. She is lethargic but alert and oriented, answers all questions appropriately. Patient is quite chronically ill with a long-standing history of insulin-dependent diabetes, hypertension, morbid obesity, A. fib anticoagulated on Eliquis and beta- blockade with metoprolol. She is a full code. Patient's EKG shows findings consistent with a third-degree block. Patient will require emergent transfer for pacemaker placement although is hemodynamically within normal limits at this time in regards to her blood pressure. IV access has been established. Labs have been obtained. She has been placed on pacer pads although these will not be engaged unless patient becomes hypotensive or has a worsening of her mental status. Will contact for transfer. Will continue to reassess frequently for deterioration of her clinical status. 03/04/17 19:07 I have placed an ultrasound-guided brachial IV in the right arm as an multiple prior attempts by nursing staff were unsuccessful. Patient continues to wake to noxious stimuli and loud voice. IVC exam shows greater than 50% respiratory variation I do suspect some component of dehydration. Patient also has market hyperglycemia on a bedside Accu-Chek and a son who is now at the bedside reports that this is been the case for the past 3-4 days. Nichols catheter will be placed for urinalysis and a chest x-ray will also be obtained as patient has a history of occult infections in the past treating hyperglycemia status. Once I have labs will initiate transfer process. 03/04/17 19:40 Patient apparently has a potassium of almost 10 which would also account for her severe bradycardia and wide complex tachycardia. Patient will be immediately administered 3 g of calcium gluconate, 12 units of IV insulin as she is already hyperglycemic. Patient's leukocytosis is also apparently almost 50. She has a left lower lobe pneumonia on chest x-ray. Zosyn has been initiated for broad-spectrum coverage. A Nichols catheter is in place. Patient' s mental status has rapidly deteriorated and she is no is no longer protecting her airway. A right humeral intraosseous line has also been placed in addition to the right IV that was placed. I have started a norepinephrine infusion and have begun pacing the patient transcutaneously with appropriate capture confirmed by bedside echocardiogram. However despite pacing the patient with appropriate patient is somewhat hypotensive and I have thus begun on norepinephrine infusion to assist with blood pressure maintenance to try to prevent the patient from going to cardiac arrest during intubation. I pulled the patient's son into the room and had an extensive conversation about the grave nature of the patient's condition and my very elevated concerned that she would not survive an intubation and associated required procedures. However, at this time the patient's son has requested that we proceed with all aggressive measures. I will therefore moved to intubate the patient, place a central line, and contact [facility] for emergent transfer. 03/04/17 20:29 This note is necessarily delayed as I was providing continuous care for the past 50 minutes. Patient was intubated using rocuronium and ketamine given her marked hyperkalemia. This is performed with a glide scope with first-pass success. As soon as the intubation was completed patient's blood pressure was noted to continue to be within normal limits on a norepinephrine infusion at 20. I then moved to place a right internal jugular central line which was completed without difficulty. Just as the line was being sutured into place the nursing staff noticed that we were no longer getting any capture on the pacer pads and no pulse was noted on telemetry. We immediately did a pulse check and the patient was not noted to have a pulse. We immediately began CPR. Epinephrine, additional calcium gluconate 3 g, and 2 amps of bicarbonate were all administered. I called the son to the bedside and we reviewed grave nature of her case given that she has a multifocal infection both in her urine and in a left lower lobe pneumonia, lactate greater than 5, potassium almost at 10 with an associated severe bradycardia and GCS now 3 requiring intubation. The son clarified that he would like to discontinue aggressive measures if the patient continued to code. Just has been completed this conversation the patient did have return of spontaneous circulation. She is breathing on her own. We will therefore persist with our current measures continue to ventilate the patient, continuing pacing, antibiotics, IV fluids, and continued nebulized albuterol to try to reduce the potassium. I will now contacted [facility] for emergent transfer 03/04/17 20:53 Patient continues to have spontaneous respirations. Continue aggressive IV hydration with a second liter of IV fluid at this time, patient still maintains a blood pressure without need for norepinephrine infusion. 03/04/17 21:46 I have updated the patient's so and informed him that the patient is no longer he states that now that this is the case he would like to discontinue all care including extubation, discontinuation of transcutaneous pacing, IV norepinephrine infusion, aggressive IV fluids and antibiotics, as well as transfer for emergent dialysis and pacemaker placement. He understands that this will result in the of the patient. I do believe this is appropriate patient has innumerable comorbidities, and has a very minimal chance of survival in this context. Will administer IV fentanyl for symptom control, extubate the patient, removed transcutaneous pacer, and discontinue norepinephrine infusion 03/04/17 22:11 Patient has . Time of is 2208 - Vital Signs Vital signs: Temp Pulse Resp BP Pulse Ox 34 L 6 L 88/33 L 97 03/04/17 18:37 03/04/17 22:01 03/04/17 22:01 03/04/17 21:57 - Laboratory Result Diagrams: 03/04/17 18:49 03/04/17 21:05 Laboratory results interpreted by me: 03/04/17 03/04/17 03/04/17 18:42 18:49 18:49 WBC 50.1 H* Hgb 10.7 L Hct 35.3 L MCH 25.4 L MCHC 30.3 L RDW 17.8 H Plt Count 539 H Seg Neuts % (Manual) 82 H Band Neutrophils % 7 H Lymphocytes % (Manual) 1 L Metamyelocytes % 6 H Abs Neuts (Manual) 47.6 H Abs Monocytes (Manual) 2.0 H VBG pH VBG HCO3 Sodium 125.3 L Potassium 9.1 H* Chloride 95 L Carbon Dioxide 11 L Anion Gap BUN 139 H Creatinine 4.93 H Est GFR ( Amer) 10 L Est GFR (Non-Af Amer) 8 L Glucose 480 H* POC Glucose 463 H* Hemoglobin A1c % Lactic Acid TSH Urine Protein Urine Glucose (UA) Urine Blood Ur Leukocyte Esterase Urine Ascorbic Acid 03/04/17 03/04/17 03/04/17 18:49 18:49 18:49 WBC Hgb Hct MCH MCHC RDW Plt Count Seg Neuts % (Manual) Band Neutrophils % Lymphocytes % (Manual) Metamyelocytes % Abs Neuts (Manual) Abs Monocytes (Manual) VBG pH VBG HCO3 Sodium Potassium Chloride Carbon Dioxide Anion Gap BUN Creatinine Est GFR ( Amer) Est GFR (Non-Af Amer) Glucose POC Glucose Hemoglobin A1c % 7.8 H Lactic Acid 5.6 H TSH 4.99 H Urine Protein Urine Glucose (UA) Urine Blood Ur Leukocyte Esterase Urine Ascorbic Acid 03/04/17 03/04/17 03/04/17 19:44 21:05 21:05 WBC Hgb Hct MCH MCHC RDW Plt Count Seg Neuts % (Manual) Band Neutrophils % Lymphocytes % (Manual) Metamyelocytes % Abs Neuts (Manual) Abs Monocytes (Manual) VBG pH 6.89 L* VBG HCO3 9.6 L Sodium 129.0 L Potassium 8.0 H* D Chloride Carbon Dioxide 11 L Anion Gap 20 H BUN 135 H Creatinine 4.86 H Est GFR ( Amer) 10 L Est GFR (Non-Af Amer) 9 L Glucose 450 H* POC Glucose Hemoglobin A1c % Lactic Acid TSH Urine Protein 100 H Urine Glucose (UA) 150 H Urine Blood SMALL H Ur Leukocyte Esterase MODERATE H Urine Ascorbic Acid 20 H - Diagnostic Test Radiology reviewed: Image reviewed, Reports reviewed Radiology results interpreted by me: 03/05/17 02:51 Chest x-ray: Left lower lobe infiltrate - EKG Interpretation by Me Additional EKG results interpreted by me: 03/05/17 03:02 Wide-complex regular bradycardia rate 34. Atrial fibrillation. No ST elevations or depressions Procedures - Central Line Right Internal jugular Consent obtained: No - emergent Central line pre-insertion: Chloraprep applied Central line lumen type: Triple Anesthetic type: 1% Lidocaine Ultrasound guided: Yes CM at insertion site: 18 Line secured with sutures: Yes Central line post-insertion: Blood return from lumens, Biopatch applied, Sutured , Sterile dressing applied, Position confirmed w/ CXR Number of attempts: 1 Complications: No - Intubation Orotracheal Airway evaluation: Loose teeth, Neck immobility, Obese Mallampati Classification: Class 2 Medications: Ketamine, Other - Rocuronium Intubation method: Orotracheal Blade type: Anitha Blade size: 4 Equipment used: Glidescope ETT size: 7.5 ETT secured at: Gums ETT secured at (cm): 23 Breath Sounds after Intubation: Equal End tidal CO2 confirmed: Yes Ventilator settings: SIMV Tidal volume: 400 FiO2: 60 Respirations: 16 PEEP: 5 Post Intubation Xray: Yes Critical Care Note - Critical Care Note Total time excluding time spent on procedures (mins): 150 Comments: Critical care time spent obtaining history from patient or surrogate, discussions with consultants, development of treatment plan with patient or surrogate, evaluation of patient's response to treatment, examination of patient , ordering and performing treatments and interventions, ordering and review of laboratory studies, re-evaluation of patient's condition, ordering and review of radiographic studies and review of old charts Discharge - Discharge Clinical Impression: Third degree atrioventricular block, Hyperkalemia, Encephalopathy, Cardiogenic shock, Lactic acidosis, Pyelonephritis Left lower lobe pneumonia Qualifiers: Pneumonia type: due to unspecified organism Qualified Code(s): J18.1 - Lobar pneumonia, unspecified organism Sepsis Qualifiers: Sepsis type: sepsis due to unspecified organism Qualified Code(s): A41.9 - Sepsis, unspecified organism Acute renal failure Qualifiers: Acute renal failure type: unspecified Qualified Code(s): N17.9 - Acute kidney failure, unspecified Condition: Critical Disposition: Referrals: JAYANT MORROW DO [Primary Care Provider] - Follow up as needed
[2017-03-04 19:11] LABS: HEMATOCRIT 35.3 % (36.0-47.0); HEMOGLOBIN 10.7 g/dL (12.0-15.5); MEAN CORPUSCULAR HEMOGLOBIN 25.4 pg (27.0-33.4); MEAN CORPUSCULAR HGB CONC 30.3 g/dL (32.0-36.0); MEAN CORPUSCULAR VOLUME 84 fl (80-97); PLATELET COUNT 539 10^3/uL (150-450); RED CELL DISTRIBUTION WIDTH 17.8 % (11.5-14.0)
[2017-03-04] MEDS ORDERED: NOREPINEPHRINE BITARTRATE INJ/PF 4 MG/4 ML SDV IV ONE (19:29)
[2017-03-04] MEDS ORDERED: KETAMINE HCL INJ 500 MG/10 ML VIAL ONE (19:29)
[2017-03-04 19:30] LABS: ANION GAP 19 (5-19); CALCIUM 9.3 mg/dL (8.4-10.2); CARBON DIOXIDE 11 mmol/L (22-30); CHLORIDE 95 mmol/L (98-107); SODIUM 125.3 mmol/L (137-145)
[2017-03-04 19:34] LABS: BASOPHILS % (MANUAL) 0 % (0-2); EOSINOPHILS % (MANUAL) 0 % (0-6)
--- NOTE | 2017-03-04 19:35 | RADIOLOGY REPORT (SQ) ---
EXAM DESCRIPTION: CHEST SINGLE VIEW COMPLETED DATE/TIME: 03/04/2017 7:18 pm REASON FOR STUDY: sob COMPARISON: None. EXAM PARAMETERS: NUMBER OF VIEWS: One view. TECHNIQUE: Single frontal radiographic view of the chest acquired. RADIATION DOSE: NA LIMITATIONS: None. FINDINGS: LUNGS AND PLEURA: Patchy consolidation in the left medial lung base. Right lung appears c lear. No pneumothorax. No significant effusion. MEDIASTINUM AND HILAR STRUCTURES: Age-appropriate. HEART AND VASCULAR STRUCTURES: Mild cardiac enlargement. BONES: No acute findings. HARDWARE: None in the chest. OTHER: No other significant finding. IMPRESSION: Patchy consolidation in the left medial lung base. TECHNICAL DOCUMENTATION: JOB ID: [id number] [place]-72 2010 [employer]- All Rights Reserved
[2017-03-04 19:37] LABS: ABSOLUTE LYMPHOCYTES# (MANUAL) 0.5 10^3/uL (0.5-4.7); ABSOLUTE NEUTROPHILS# (MANUAL) 47.6 10^3/uL (1.7-8.2); BAND NEUTROPHILS % (MANUAL) 7 % (3-5); LYMPHOCYTES % (MANUAL) 1 % (13-45); METAMYELOCYTES % (MANUAL) 6 % (0); MONOCYTES % (MANUAL) 4 % (3-13); SEGMENTED NEUTROPHILS % (MAN) 82 % (42-78); TOTAL CELLS COUNTED 100
[2017-03-04] MEDS ORDERED: CALCIUM GLUCONATE 1000 MG/10 ML INJ IV ONE ×3 (19:39→20:56)
[2017-03-04 19:40] LABS: BLOOD UREA NITROGEN 139 mg/dL (7-20)
[2017-03-04 19:42] LABS: ANISOCYTOSIS 1+; BURR CELLS SLIGHT; GLUCOSE 480 mg/dL (75-110); OVALOCYTES SLIGHT; POIKILOCYTOSIS SLIGHT; SCHISTOCYTES SLIGHT; TEAR DROP CELLS SLIGHT; TOXIC GRANULATION 1+
[2017-03-04 19:43] LABS: PLATELET CLUMPS PRESENT; PLATELET COMMENT ADEQUATE; PLATELET GIANT PRESENT; PLATELET LARGE PRESENT
[2017-03-04 19:45] LABS: WHITE BLOOD COUNT 50.1 10^3/uL (4.0-10.5)
[2017-03-04 19:46] LABS: FREE T4 (FREE THYROXINE) 1.5 ng/dL (0.78-2.19); POTASSIUM 9.1 mmol/L (3.6-5.0)
[2017-03-04 20:00] LABS: THYROID STIMULATING HORMONE 4.99 uIU/mL (0.47-4.68)
[2017-03-04] MEDS ORDERED: ROCURONIUM BROMIDE INJ 50 MG/5 ML VIAL IV ONE (20:03)
[2017-03-04] MEDS ORDERED: FENTANYL CITRATE INJ/PF 100 MCG/2 ML AMPUL ONE ×2 (20:31→21:50)
[2017-03-04] MEDS ORDERED: INSULIN REG, HUMAN 100 UNIT/ML 3 ML VIAL (PYX) ONE (20:57)
[2017-03-04] MEDS ORDERED: VANCOMYCIN HCL INJ 1000 MG VIAL IV ONE (20:59)
[2017-03-04] MEDS ORDERED: ALBUTEROL SULFATE 0.083% NEB 2.5 MG/3 ML AMPUL NEB ONE (20:59)
[2017-03-04] MEDS ORDERED: PIPERACILLIN/TAZOBACTAM 3.375 GM VIAL IV ONE (21:02)
[2017-03-04 21:36] LABS: APPEARANCE,URINE TURBID; BILIRUBIN,URINE NEGATIVE (NEGATIVE); COLOR,URINE YELLOW; GLUCOSE, URINE 150 mg/dL (NEGATIVE); KETONES,URINE NEGATIVE (NEGATIVE); LEUKOCYTE ESTERASE,URINE MODERATE (NEGATIVE); NITRITE,URINE NEGATIVE (NEGATIVE); PROTEIN,URINE 100 mg/dL (NEGATIVE); URINE SPECIFIC GRAVITY 1.017; UROBILINOGEN,URINE NEGATIVE mg/dL (<2.0)
--- NOTE | 2017-03-04 21:38 | RADIOLOGY REPORT (SQ) ---
EXAM DESCRIPTION: CHEST SINGLE VIEW COMPLETED DATE/TIME: 03/04/2017 9:07 pm REASON FOR STUDY: POST CENTRAL LINE, POST ARREST, POST INTUBATION COMPARISON: Earlier exam same date EXAM PARAMETERS: NUMBER OF VIEWS: One view. TECHNIQUE: Single frontal radiographic view of the chest acquired. RADIATION DOSE: NA LIMITATIONS: None. FINDINGS: LUNGS AND PLEURA: Left lower lobe consolidation. No pneumothorax. MEDIASTINUM AND HILAR STRUCTURES: Stable. HEART AND VASCULAR STRUCTURES: Stable. BONES: No acute findings. HARDWARE: Endotracheal tube tip overlies the lower trachea, approximately 3 cm above the level of the eliza. Right IJ central venous catheter tip overlies the RA -SVC junction. Nasogastric catheter i s present tip overlying the body of the stomach. OTHER: No other significant finding. IMPRESSION: Left lower lobe consolidation. No pneumothorax. Endotracheal tube tip overlies the lower trachea, approximately 3 cm above the level of the eliza. Right IJ central venous catheter tip ove rlies the RA -SVC junction. TECHNICAL DOCUMENTATION: JOB ID: [id number] [place]-72 2010 [employer] [facility]- All Rights Reserved
[2017-03-04 21:43] LABS: CALCIUM 9.6 mg/dL (8.4-10.2); CHLORIDE 98 mmol/L (98-107)
[2017-03-04 21:48] LABS: VENOUS BLOOD BASE EXCESS -22.8 mmol/L; VENOUS BLOOD HCO3 9.6 mmol/L (20-32); VENOUS BLOOD PCO2 50.9 mmHg (35-63)
[2017-03-04 21:55] LABS: ANION GAP 20 (5-19); BLOOD UREA NITROGEN 135 mg/dL (7-20); CARBON DIOXIDE 11 mmol/L (22-30)
[2017-03-04 21:57] LABS: GLUCOSE 450 mg/dL (75-110)
[2017-03-04 21:59] LABS: VENOUS BLOOD PH 6.89 (7.30-7.42)
[2017-03-04 22:06] VITALS: BP 88/33
--- NOTE | 2017-03-05 12:09 | EKG REPORT ---
SEVERITY:- ABNORMAL ECG - JUNCTIONAL ESCAPE RHYTHM VENTRICULAR PREMATURE COMPLEX NONSPECIFIC IVCD WITH LAD LVH WITH SECONDARY REPOLARIZATION ABNORMALITY : Confirmed by: Katy Morrow MD 05-Mar-2017 12:08:15
[2017-03-08 09:35] LABS: PATH REVIEW PATHOLOGIST REVIEWED
== END 2017-03-05 00:05 | disposition expired ==
LOC: ER 18:37
DX: A41.9 Sepsis, unspecified organism (principal); J18.1 Lobar pneumonia, unspecified organism; N12 Tubulo-interstitial nephritis, not specified as acute or chronic; I44.2 Atrioventricular block, complete; N17.9 Acute kidney failure, unspecified; R57.0 Cardiogenic shock; G93.40 Encephalopathy, unspecified; E87.2 Acidosis; E11.65 Type 2 diabetes mellitus with hyperglycemia; Z79.4 Long term (current) use of insulin; E66.01 Morbid (severe) obesity due to excess calories; Z68.42 Body mass index [BMI] 45.0-49.9, adult; I10 Essential (primary) hypertension; I48.91 Unspecified atrial fibrillation; Z79.01 Long term (current) use of anticoagulants; J45.909 Unspecified asthma, uncomplicated; Z91.041 Radiographic dye allergy status; Z79.899 Other long term (current) drug therapy
CPT/HCPCS: 93005; 99291; 99292; 92950; 51702; 96374; 36415; 84439; 82962; 83605; 84443; 85025; 80048; 81001; 84484; 83036; 82803; 71010; 93010; 36556; 31500; 36680; C1751; J3490 ×2; J0171; J7030